=== PATIENT | male | born 1980 | race Caucasian/White ===

== ENCOUNTER 2023-10-18 22:04 | Inpatient (IN) | payer OTHER, SELFPAY ==
[2023-10-18 18:23] VITALS: BMI 30.2
[2023-10-18 18:24] VITALS: BP 188/119
[2023-10-18 19:04] LABS: Urine Albumin Negative (Neg - Trace); Urine Bilirubin 2+ (Negative); Urine Character Clear (Clear); Urine Color Yellow; Urine Glucose Negative (Negative); Urine Ketone Negative (Negative); Urine Leukocyte Negative (Negative); Urine Nitrite Negative (Negative); Urine Occult Blood Negative (Negative); Urine Urobilinogen 4+ (Neg - 1+)
[2023-10-18 19:05] LABS: % Basophils 0.9 % (0-2); % Eosinophils 0.4 % (0-6); % Immature Granulocytes 0.4 % (0-0.5); % Lymphocytes 15.5 % (20.5-51.1); % Monocytes 8.5 % (1.7-9.3); % Neutrophils 74.3 % (42.2-75.2); Absolute Basophils 0.1 10^3/uL (0-0.2); Absolute Lymphocytes 0.9 10^3/uL (1.2-3.4); Absolute Monocytes 0.5 10^3/uL (0.1-0.6); Absolute Neutrophils 4.2 10^3/uL (1.4-6.5); Hematocrit 39.6 % (39.0-52.0); Hemoglobin 13.6 g/dL (13.0-18.0); Mean Corp Hgb Conc. 34.3 g/dL (33.0-37.0); Mean Corpuscular Hgb 31.9 pg (27.0-31.0); Mean Platelet Volume 10.1 fL (7.4-10.4); Nucleated Red Blood Cells % 0 % (-); Platelet Count 150 10^3/uL (130-400); Red Blood Cell Count 4.26 10^6/uL (4.70-6.10); Red Cell Dist. Width 14.1 % (11.5-14.5); White Blood Cell Count 5.7 10^3/uL (4.8-10.8)
[2023-10-18 19:20] LABS: ALT (SGPT) 61 U/L (0-50); AST (SGOT) 394 U/L (17-59); Albumin 3.6 g/dl (3.5-5.0); Alcohol 255 mg/dl; Alkaline Phosphatase 284 U/L (38-126); Blood Urea Nitrogen 3 mg/dl (9-20); Calcium 8.3 mg/dl (8.4-10.2); Carbon Dioxide 25 mmol/L (22-30); Chloride 92 mmol/L (98-107); Glucose 208 mg/dl (70-99); Lipase 92 U/L (23-300); Potassium 3.2 mmol/L (3.5-5.1); Sodium 132 mmol/L (135-145); Total Bilirubin 4.9 mg/dl (0.2-1.3); Total Protein 6.9 g/dl (6.3-8.2); eGFR > 60.00
--- NOTE | 2023-10-18 19:36 | ED.GENMED ---
History of Present Illness
General
Chief Complaint: Alcohol Problem
Source: patient
Exam Limitations: none
Time Seen by Provider: 10/18/23 19:22
Travel History
Have you had any contact with someone who has COVID-19?: No
Do you have any symptoms of coronavirus? Fever > 100 degrees, chills, cough, shortness of breath, sore throat, loss of taste or smell, muscle aches, or headache?: No
History of Present Illness
History of Present Illness:
This is a 43 year old male that comes in with c/o alcohol abuse. States that he thinks he needs detox and he was worried as his eyes are now yellow. States that he noticed this a couple weeks ago but had something he had to take care of first.
States that he is very fatigued, his urine is very dark and fowl smelling. States that his last drink was about 1 hour ago. States that he drinks Moose-four and this is about 4.5 drink per can. States that this is most likely equal to 20 drinks per
day. States that he has been vomiting 3-4 times daily and having palpitations. Denies any fever, chills, chest pain, abd pain, nausea, diarrhea, headache, dizziness, urinary burning.
Past History
Past History
ED Past Medical History: HTN, Psychiatric (Anxiety/depression, substance abuse, alcohol abuse), Other (Drug and alcohol dependence) and Other (Alcoholic pancreatitis)
ED Past Surgical History: Other (Tracheotomy)
Social History
Tobacco: Former smoker
Alcohol: Daily
Drug: Former user (On Suboxone)
Personal:
Living: with family
Review of Systems
Review of Systems
All Other Systems: ROS reviewed and negative except as documented in HPI and ROS
Constitutional: Reports no symptoms; Denies fever or chills
EENT: Reports other (Scalar yellow)
Respiratory: Reports trouble breathing
Cardiac: Reports no symptoms; Denies chest pain
ABD/GI: Reports vomiting; Denies abdominal pain, nausea or diarrhea
: Reports dark urine and other (Fowl smelling )
Musculoskeletal: Reports no symptoms
Skin: Reports no symptoms
Neurological: Reports no symptoms; Denies dizzy or headache
Psychiatric: Reports no symptoms
Phy Exam
General Physical Exam
General Presentation: no apparent distress
General age: appears stated age
General Skin: warm and dry
General Habitus: normal
General Mental: alert
General Hydration: appears well hydrated
ENT Exam
ENT Exam: TM's normal, pharynx normal and neck supple
Eye Exam
Eye Exam: other (Scalar jaundice)
Cardiovascular Exam
Cardiovascular Exam: no edema, no murmur, normal peripheral pulses and tachycardia
Pulmonary Exam
Pulmonary Exam: lungs clear, no respiratory distress, no rales, chest non tender, no crackles, no rhonchi, no wheezing and no cough
Gastrointestinal Exam
Gastrointestinal Exam: normal bowel sounds, non tender, soft, no organomegaly, no pulsatile mass and ascites
Musculoskeletal Exam
Musculoskeletal Exam: full ROM and no edema
Skin Exam
Skin Exam: normal color, warm/dry, no rash and no petechia
Psychiatric Exam
Psychiatric Exam: normal mood/affect
Scores
Withdrawal Assessment of Alcohol
Withdrawal Assessment Completed?: Not applicable
Course
Orders/Labs/Results
Orders:
Orders
10/18/23 18:30
EKG [Electrocardiogram (*1)] Urgent
Reason for Study: Fatigue / Weakness
EKG- Treatment ONCE
10/18/23 18:43
Alcohol Urgent
CBC/With Diff [Complete Blood Count/With Diff] Urgent
CMP [Comprehensive Metabolic Panel] Urgent
Direct Bilirubin Urgent
Comment: ADD ON
Lipase Urgent
Magnesium Urgent
10/18/23 18:46
Urinalysis Reflex To Culture Urgent
Date Specimen was Collected: 10/18/23
Time Specimen was Collected: 18:30
10/18/23 19:34
US Abdomen Limited Urgent
Comment:
Reason For Exam: DISTENTED, ASCITIES CHECK
10/18/23 19:35
Add On- LAB Urgent
Tests Added?: dIRECT CHARANJIT
CR Chest - 2 Views Urgent
Comment:
Reason For Exam: sob
10/18/23 20:00
0.9% Sodium Chloride 500 ml [Nss] 500 ml IV 125 mls/hr
10/18/23 21:39
Admit/Transfer Patient As Directed
Co-Sign Provider:
Level of Care: Inpatient admission
Assign to:: Medical/Surgical
Physician / Group: Gavino Higginbotham - Hospitalists
Diagnosis: acute ETOH hepatitis, jaundice
Reason for Hospitalization: acute ETOH hepatitis, jaundice - serial labs, IVF
Expected length of stay greater than two midnights?: Yes
ELOS- Estimated Length of Stay in days: 3
I certify the patient meets the requirements for IP care: Yes
10/18/23 21:40
Code Status As Directed
Resuscitation Status: Full Code
10/18/23 21:47
Add On- LAB Routine
Tests Added?: mag level
Calcium Gluconate 3,000 mg 0.9% Sodium Chloride 100 ml [Nss] 100 ml IV ONCE
Potassium Chloride [KCl] 40 meq 0.9% Sodium Chloride 250 ml [Nss] 250 ml IV NOW
Abnormal Lab Results
10/18/23 10/18/23
18:43 18:46
RBC 4.26 L 10^6/uL
(4.70-6.10)
MCH 31.9 H pg
(27.0-31.0)
Absolute Lymphs (auto) 0.9 L 10^3/uL
(1.2-3.4)
Lymphocytes % 15.5 L %
(20.5-51.1)
Sodium 132 L mmol/L
(135-145)
Potassium 3.2 L mmol/L
(3.5-5.1)
Chloride 92 L mmol/L
(98-107)
BUN 3 L mg/dl
(9-20)
Creatinine 0.5 L mg/dL
(0.7-1.3)
Glucose 208 H mg/dl
(70-99)
Calcium 8.3 L mg/dl
(8.4-10.2)
Total Bilirubin 4.9 H mg/dl
(0.2-1.3)
Direct Bilirubin 3.5 H mg/dl
(0.0-0.4)
AST 394 H U/L
(17-59)
ALT 61 H U/L
(0-50)
Alkaline Phosphatase 284 H U/L
(38-126)
Urine Bilirubin 2+ A
(Negative)
Urine Urobilinogen 4+ A
(Neg - 1+)
10/18/23 18:43
10/18/23 18:43
Sodium slightly low,Potassium slightly low. Chloride low, Glucose nonfasting. Total charanjit elevation. AST elevation ALT elevation. Alk phos elevation. Urine negative for infection. Positive for Urine bilirubin and Urobilinogen. Alcohol 255, Lipase
normal at 92, Direct charanjit elevated at 3.5,
Vital Signs
Initial and Last Documented VS:
Initial Vital Signs
Temp Pulse Resp BP Pulse Ox
98.1 F 118 18 188/119 98
10/18/23 18:24 10/18/23 18:24 10/18/23 18:24 10/18/23 18:24 10/18/23 18:24
Last Documented Vital Signs
Temp Pulse Resp BP Pulse Ox
98.1 F 89 11 143/93 95
10/18/23 18:24 10/18/23 22:15 10/18/23 22:15 10/18/23 22:00 10/18/23 22:15
MDM/Problems Addressed
Differential Diagnosis Includes:
Alcohol abuse. Liver failure, Ascites
MDM/Problems Addressed:
This is a 43 year old male that comes in with c/o alcohol abuse. States that in the past couple of weeks his eyes were yellow, he has had palpitations feels SOB. States that he also vomited 3-4 times daily. States that he wants to detox.
Will get labs, and Ultrasound. Will most likely admit patient.
Chronic conditions affecting care: Other (Alcohl abuse)
Acute Exacerbation and/or Progression of Chronic Illness: Other (Alcohol abuse)
*Radiology
Radiology exam reviewed: radiology read reviewed (CHEST-NO acute cardiopulmonary process. US- No findings to confirm abd ascites. )
*Pulse Oximetry
Patient hypoxic: no
*EKG
Interpreted by ED Provider?: Yes
Heart Rate: 101
Rate: tachycardiac
Rhythm: sinus and sinus tachycardia
[place]: normal axis
Interval: normal interval
QRS Pattern: normal QRS
Ischemia: no ischemia
*Front Desk Administrator Interpretation
Rate: tachycardiac
Heart Rate: 111
Rhythm: sinus tachycardia
*Critical Care Note
Total Time (30-74mins, 75-104mins- exclusive of procedures): Not Applicable
ED Attending Note
-
Portions of this chart may have been created with voice recognition software.� Occasional wrong word or��sound alike� substitutions may have occurred due to the inherent limitations of voice recognition software.
Discharge Plan
Departure
Patient Disposition: Admit
Date of Disposition: 10/18/23
Time of Disposition: 21:12
Presentation/result/management discussed w/ accepting MD/DO: Hospitalist
Patient with high blood pressure during this ER visit?: Yes
Condition: Good
Covid-19: Not Applicable
Discharge Problem:
Alcohol abuse, Elevated liver enzymes
Interventions
Interventions:
*Risk Screen - Suicide Last Done: 10/18/23 19:43
*General Assessment Last Done: 10/18/23 18:24
*Neglect/Abuse Screening Last Done: 10/18/23 19:43
ED- Fall Risk Assessment Last Done: 10/18/23 19:43
ED- Neurological Assessment Last Done: 10/18/23 19:43
ED-Psychological Assessment Last Done: 10/18/23 19:43
[2023-10-18] MEDS: NSS 500 IV (19:39)
[2023-10-18 19:51] LABS: Direct Bilirubin 3.5 mg/dl (0.0-0.4)
[2023-10-18 21:06] VITALS: BP 127/98
--- NOTE | 2023-10-18 21:27 | HPS.HSE ---
Family Physician
-
Family Physician: NOT KNOW UNKNOWN - PT DOES
Chief Complaint
-
'I want to detox'
History of Present Illness
43 y/o M, hx of opiate abuse on Suboxone, HTN, presents to ER with desire to detox from Alcohol. Patient reports fatigue for about 3 weeks. He reports symptoms are progressive and just 2 weeks ago he noticed yellow discoloration of his eyes. He
reports on and off abdominal distention, discomfort, and nausea vomiting. No bloody vomiting. No LE swelling. No fever or chills. He is interested in detox-ing from ETOH. Reports drinking 3-4 bottles a day due to depression associated with financial
stress. He states he is feeling hopeless, and sad, but denies SI/HI.
In ER, found to have elevated LFTs including bilirubin, admitted for further care.
Medical History
Past Medical History
Past Medical History: Reports Other (anxiety/depression, hx of opiate abuse)
Past Surgical History: Reports Other (trach 2020 reversed)
Social History
Tobacco: Non-smoker
Alcohol: Daily
Drug: Former User (opiates quit 3 years ago)
Personal:
Living: With Family
Employment: Employed
Family History
Family History: Not pertinent
Allergies / Home Medications
Allergies reflects when Allergies were last updated in [facility].
Home Medications with original date entered in [facility]
Allergy/Medication List:
Allergies
Allergy/AdvReac Type Severity Reaction Status Date / Time
No Known Allergies Allergy Verified 10/18/23 18:29
Home Medications
buprenorphine 8 mg-naloxone 2 mg sublingual film 1 film sublingual DAILY 11/28/22
lisinopril 5 mg tablet 5 mg PO DAILY #30 tabs 11/30/22
Review of Systems
-
A 12 point ROS was completed and negative except as noted: Yes
Physical Exam
Vital Signs
Vital Signs
Temp Pulse Resp BP Pulse Ox
98.1 F 87 11 127/98 93
10/18/23 18:24 10/18/23 21:15 10/18/23 21:15 10/18/23 21:06 10/18/23 21:15
Physical Exam
General: Well Developed, Well Nourished and No Apparent Distress
HEENT: NormoCephalic and Other (scleral icterus)
Respiratory: No Wheezes or Rales
Cardiac: S1/S2 and Regular Rhythm
GI: Soft and Distended
Musculoskeletal: No Edema
Skin: Jaundice
Neuro: AO x 3
Psych: Calm
Laboratory Results
-
10/18/23 18:43
10/18/23 18:43
Laboratory Results
Total Bilirubin 4.9 mg/dl (0.2-1.3) H 10/18/23 18:43
AST 394 U/L (17-59) H 10/18/23 18:43
ALT 61 U/L (0-50) H 10/18/23 18:43
Alkaline Phosphatase 284 U/L (38-126) H 10/18/23 18:43
Lipase 92 U/L (23-300) 10/18/23 18:43
Data Reviewed
-
Lab Data: Labs Reviewed by me
Impression/Plan
-
Assessment:
Acute Alcohol hepatitis
- associated with elevated LFTs (AST>>ALT) and elevated bilirubin; will trend labs
- check coags to calculate DF score
- limited US without ascites; complete US ordered for AM
- IVF ordered
Chronic Alcoholism associated with clinical depression
- consult psych
- at risk for WD, monitor with MSAS protocol. No prior hx of seizures or hospitalizations with WD
Hyponatremia
Hypokalemia
Hypocalcemia with normal albumin
- continue IVF
- replete K+ and Ca++ with IV
- repeat AM labs
Prior history of opiate abuse
- sober x 3 years; on Suboxone daily
Essential HTN
- continue ANN
DVT ppx: Lovenox
Code: Full
[2023-10-18 22:00] VITALS: BP 143/93
[2023-10-18] MEDS: KCL 270 MEQ IV (22:03)
[2023-10-18 22:20] LABS: Magnesium 2.1 mg/dl (1.6-2.3)
[2023-10-18] MEDS: CALCIUM GLUCONATE 130 MG IV (22:47)
[2023-10-18 23:00] VITALS: BP 128/99
[2023-10-19] VITALS (17 sets, daily range): BP systolic 144–197; BP diastolic 108–130
[2023-10-19] MEDS: ATIVAN 1 MG PO ×6 (01:36→20:14)
[2023-10-19] MEDS: THIAMINE INJECTION 200 MG IV ×3 (01:36→20:14)
[2023-10-19] MEDS: NSS 1000 IV (02:08)
[2023-10-19] MEDS: NSS IV (02:35)
[2023-10-19 03:05] LABS: Amphetamines Negative (Negative); Barbiturates Negative (Negative); Benzodiazepines Negative (Negative); Buprenorphine Positive (Negative); Cocaine Negative (Negative); Marijuana Negative (Negative); Methadone Negative (Negative); Methamphetamines Negative (Negative); Opiates Negative (Negative); Phencyclidine Negative (Negative); Tricyclic Antidepressants Negative (Negative)
[2023-10-19 03:27] LABS: Fentanyl, Urine Negative (Negative)
[2023-10-19 06:47] LABS: INR 1.43; PT 17.3 Sec (11.4-14.6)
[2023-10-19 06:48] LABS: APTT 35.3 Sec (23.4-35.0)
[2023-10-19 07:03] LABS: Hematocrit 38.8 % (39.0-52.0); Mean Corp Hgb Conc. 33.5 g/dL (33.0-37.0); Mean Corpuscular Hgb 31.6 pg (27.0-31.0); Mean Corpuscular Volume 94.2 fL (80.0-94.0); Mean Platelet Volume 9.8 fL (7.4-10.4); Platelet Count 143 10^3/uL (130-400); Red Blood Cell Count 4.12 10^6/uL (4.70-6.10); Red Cell Dist. Width 14.3 % (11.5-14.5); White Blood Cell Count 4.5 10^3/uL (4.8-10.8)
[2023-10-19 07:05] LABS: ALT (SGPT) 64 U/L (0-50); AST (SGOT) 359 U/L (17-59); Albumin 3.3 g/dl (3.5-5.0); Alkaline Phosphatase 288 U/L (38-126); Blood Urea Nitrogen 3 mg/dl (9-20); Calcium 8.6 mg/dl (8.4-10.2); Carbon Dioxide 30 mmol/L (22-30); Chloride 99 mmol/L (98-107); Estimated Creatinine Clearance > 125 ml/min; Glucose 89 mg/dl (70-99); Magnesium 1.8 mg/dl (1.6-2.3); Phosphorus 2.8 mg/dl (2.5-4.5); Potassium 4.4 mmol/L (3.5-5.1); Sodium 136 mmol/L (135-145); Total Bilirubin 5.9 mg/dl (0.2-1.3); Total Protein 6.6 g/dl (6.3-8.2); eGFR > 60.00
[2023-10-19] MEDS: ZESTRIL 5 MG PO (07:58)
[2023-10-19] MEDS: FOLVITE 1 MG PO (07:58)
[2023-10-19] MEDS: TRANDATE 10 MG IV ×2 (07:59→23:17)
[2023-10-19] MEDS: SUBUTEX 8 MG SL ×2 (07:59→20:14)
--- NOTE | 2023-10-19 08:50 | EDRN ---
Assumed care. Pt is AAOx4. Color - sl jaundiced. HR- tachycardic - sinus noted on monitor. Lungs clear. Abd round, sl distended. No n/v. HAN. tremors noted. Pt informed that he is now NPO status except sips/ meds. Amb in room BRP - steady gait.
Hospitalist updated frequently re- BP readings and meds administered as ordered. IV infusing LT ACF as ordered
--- NOTE | 2023-10-19 08:58 | CON.GI ---
Addendum entered and electronically signed by Nakia Villarreal MD 10/19/23 12:45:
I saw and examined the patient.
The FAMILY PRESERVATION OFFICER's note was reviewed and I agree with the note.
Comment: This is a 43-year-old male with past medical history of alcoholism with a history of recurrent alcohol pancreatitis with also 1 episode of severe pancreatitis few years ago with VDRF status post trach and PEG at that time that was
subsequently removed. History of opiate abuse currently on Suboxone who presented to the emergency room with symptoms of profound fatigue for about 2 to 4 weeks and also jaundice that he initially noticed about 2 weeks prior to admission.
Admission LFTs elevated, normal platelet, INR mildly elevated at 1.43. He has been drinking 4-5 [place] drinks daily for quite a few years
Assessment and plan alcohol hepatitis DF is 25.7 no indication for steroids, continue alcohol withdrawal prophylaxis, thiamine and folic acid also. Patient willing to go to rehab inpatient or outpatient unfortunately he has been to a couple rehabs
in the past but has relapsed. ultrasound was negative for ascites, no HE
2. History of recurrent pancreatitis with also prior history of severe alcohol pancreatitis, his last admission here was in November 2022 for pancreatitis that episode did resolve quickly
3. History of opiate substance abuse currently on Suboxone
Original Note:
Consultation
-
Date/Time Consultation Requested: 10/19/2023
Date/Time Consultation Performed: 10/19/2023 @ 08:45
Requesting Provider: Dr. Galeano
Performing Provider: BRAVO Boudreaux; Dr. Villarreal
Reason for Consultation: alcoholic hepatitis
Medical History
Chief Complaint / HPI
Chief Complaint: 'i want to detox,' jaundice, weakness
History of Present Illness:
The patient is a 43-year-old male with a past medical history significant for recurrent alcoholic pancreatitis, history of vent dependent respiratory failure with tracheostomy and reversal, history of substance abuse on Subutex, hypertension with
medication noncompliance, alcohol abuse, who presented to the emergency room for evaluation of jaundice and weakness and help for detox. We are being asked to evaluate for alcoholic hepatitis. Patient reports multiple episodes of alcoholic
pancreatitis in the past. He notes the first episode he had severe pancreatitis where he was placed on a ventilator and underwent tracheostomy placement. This ultimately was reversed. He is unsure if he ever had any surgery on his pancreas or
endoscopic evaluations with EUS. His last hospitalization for pancreatitis was last year here [facility]. He notes ongoing jaundice and fatigue for the past 2 weeks. He notes that he has been unable to work due to his ongoing symptoms.
He drinks 4-5 4 [place] drinks daily and has been drinking excessively for many years. He notes many life stressors currently leading to his excessive alcohol use. He denies any abdominal pain but admits to abdominal distention and pressure, although
he reports his abdomen appears at baseline. He notes he has had a decreased appetite but denies any significant weight loss. He also admits to nausea and vomiting at home which has since subsided. He denies any coffee-ground emesis or
hematemesis. He otherwise denies any constipation, melena, hematochezia, heartburn, chest pain, shortness of breath, fevers, or chills. He denies any use of blood thinners or NSAIDs. He does have a history of heroin abuse and has been clean in
regards to this. He is on Subutex daily. He does admit to the need for inpatient rehab for alcohol in the past but denies any history of withdrawal seizures. He does attend AA meetings when he is sober which is helpful. He reports family history
of alcoholism of his father. Denies any family history of colon cancer. His last alcoholic beverage was yesterday around 6 PM. He denies any prior EGD or colonoscopy. Routine labs on admission showed a WBC 5.7, hemoglobin 13.6, platelets
150,000, INR 1.43, PT 17.3, sodium 132, potassium 3.2, BUN 3, creatinine 0.5, magnesium 2.1, total bilirubin 4.9, direct bilirubin 3.5, AST 394, ALT 61, alk phos 284, lipase 92. Ultrasound imaging was done to assess for ascites which was negative.
Chest x-ray showed no acute cardiopulmonary findings. He was made n.p.o., admitted for further evaluation by GI, with pending a complete ultrasound of the abdomen. Psychiatry also was asked to evaluate. He did receive Ativan in the emergency room
and currently is tremulous and tachycardic.
Past Medical History
Past Medical History: HTN and Other (recurrent pancreatitis, alcohol abuse, hx substance abuse on Subutex, hx VDRF requiring tracheostomy/PEG with reversal)
Past Surgical History: Other (tracheostomy/PEG with reversal)
Social History
Tobacco: Non-Smoker
Alcohol: Chronic Alcoholic
Drug: Former User and Other (hx heroin abuse on Subutex)
Family History
Family History: Reviewed & Not Pertinent
Allergies / Home Medications
Allergy/AdvReac Type Severity Reaction Status Date / Time
No Known Allergies Allergy Verified 10/18/23 18:29
Medication Instructions Recorded
buprenorphine 8 mg-naloxone 2 mg 1 film sublingual DAILY 11/28/22
sublingual film
lisinopril 5 mg tablet 5 mg PO DAILY #30 tabs 11/30/22
Review of Systems
-
History Source: Patient
Constitutional: Reports No Symptoms
EENT: Reports Other (scleral icterus)
Respiratory: Reports No Symptoms
Cardiac: Reports No Symptoms
Abdomen/GI: Reports Nausea, Vomiting and Other (abdominal distention)
: Reports Dark Urine
Musculoskeletal: Reports No Symptoms
Skin: Reports Other (jaundice)
Neurological: Reports Weakness
Vital Signs
Temp Pulse Resp BP Pulse Ox
98.8 F 127 21 184/120 96
10/19/23 07:00 10/19/23 08:45 10/19/23 08:45 10/19/23 08:30 10/19/23 07:14
Physical Exam
Exam
General: Well Developed, Well Nourished, No Apparent Distress and Comfortable
HEENT: Normocephalic, Atraumatic and Other (Bilateral scleral icterus; old tracheostomy site scar)
Respiratory: Clear
Cardiac: S1/S2 and Regular Rhythm (Sinus tachycardia on telemetry monitoring)
GI: Non Tender, Normal Bowel Sounds and Distended
Rectal: Deferred by Provider
Musculoskeletal: No Edema
Skin: Warm and Dry
Neuro: Awake, Alert and Oriented
Psych: Calm and Other (Tremulous in upper extremities)
Results
WBC 4.5 10^3/uL (4.8-10.8) L 10/19/23 06:10
Hgb 13.0 g/dL (13.0-18.0) 10/19/23 06:10
Hct 38.8 % (39.0-52.0) L 10/19/23 06:10
MCV 94.2 fL (80.0-94.0) H 10/19/23 06:10
Plt Count 143 10^3/uL (130-400) 10/19/23 06:10
Absolute Neuts (auto) 4.2 10^3/uL (1.4-6.5) 10/18/23 18:43
PT 17.3 Sec (11.4-14.6) H 10/19/23 06:10
INR 1.43 10/19/23 06:10
APTT 35.3 Sec (23.4-35.0) H 10/19/23 06:10
Sodium 136 mmol/L (135-145) 10/19/23 06:10
Potassium 4.4 mmol/L (3.5-5.1) D 10/19/23 06:10
Chloride 99 mmol/L (98-107) 10/19/23 06:10
Carbon Dioxide 30 mmol/L (22-30) 10/19/23 06:10
BUN 3 mg/dl (9-20) L 10/19/23 06:10
Creatinine 0.5 mg/dL (0.7-1.3) L 10/19/23 06:10
Calcium 8.6 mg/dl (8.4-10.2) 10/19/23 06:10
Total Bilirubin 5.9 mg/dl (0.2-1.3) H 10/19/23 06:10
AST 359 U/L (17-59) H 10/19/23 06:10
ALT 64 U/L (0-50) H 10/19/23 06:10
Alkaline Phosphatase 288 U/L (38-126) H 10/19/23 06:10
Lipase 92 U/L (23-300) 10/18/23 18:43
Diagnostic Image Results:
10/18/2023 US abdomen, limited: IMPRESSION: No findings to confirm abdominal ascites.
10/18/2023 CXR: IMPRESSION: No acute cardiopulmonary process.
Prior GI Procedures:
EGD: none
Colonoscopy: none
Assessment / Plan
-
The patient is a 43-year-old male with a past medical history significant for recurrent alcoholic pancreatitis, history of vent dependent respiratory failure with tracheostomy and reversal, history of substance abuse on Subutex, hypertension with
medication noncompliance, alcohol abuse, who presented to the emergency room for evaluation of jaundice and weakness and help for detox. We are being asked to evaluate for alcoholic hepatitis. Patient notes history of recurrent pancreatitis
secondary to chronic alcoholism, with last episode last year here [facility]. He has been drinking alcohol for many years currently 4-5 [place] drinks daily. With progressive jaundice and weakness over the past 2 weeks found to have
alcoholic hepatitis based on labs. Discriminant function 25.7. Total bilirubin 4.9, direct bilirubin 3.5, AST 394, ALT 61, alk phos 284. Limited ultrasound did not demonstrate any significant ascites. Lipase level was normal. Mild hyponatremia
and hypokalemia on admission which has been corrected. Slight up-trend in liver enzymes since yesterday.
Problem list:
-alcoholic hepatitis
-abnormal LFT's
-hypokalemia
-hyponatremia
-hx recurrent alcoholic pancreatitis
-ETOH abuse
-hx VDRF requiring tracheostomy/PEG with reversal
-hx substance abuse on Subutex
-HTN, noncompliant with medications
Recommendations:
-Etiology of presenting symptoms secondary to alcoholic hepatitis with ongoing alcohol abuse. Currently with no evidence of pancreatitis with normal lipase and no significant pain.
-Calculated discriminant function is 25.7, therefore we will hold off on steroids at this time
-His INR is mildly elevated we will trend
-Monitor LFTs
-Follow ultrasound of the abdomen, which is pending. Limited ultrasound did not demonstrate any significant ascites.
-I did review with the patient that strict alcohol abstinence going forward is necessary to prevent mortality. He does wish to quit and is wishing for help with detox.
-Psychiatry consult noted
-Eventual care management consult for assistance with rehab
-Alcohol withdrawal protocol. He was slightly tremulous and tachycardic upon evaluation but did not reportedly just received Ativan.
-Will follow
Data Reviewed
-
Old Records: Reviewed
-
-
Thank you for consultation and allowing me to participate in the patient's care. Please call the health information technician GI physician during the after hours with any questions or concerns.
--- NOTE | 2023-10-19 10:26 | CM ---
Met with patient who comes in from home. He is being admitted with elevated bilirubin, AST, ALT. He states he wants to stop his ETOH use. He agreed to have [facility] come to talk to him.
He lives with and 3 children ages 10,6,3 in 2 level home. 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 Full flight to bedroom and full bathroom. He does not use any DME. He works with another nino doing independent tay
He said PCP on insurance card that has on file is wrong. He believes his PCP is Dr. Ancelmo Perez at [address] [place] [address].
He feels he cannot go to inpatient due to his work commitments. Will await [facility] assessment to assist in setting up next level of care.
PLAN:home or inpatient treatment for alcohol use disorder.
--- NOTE | 2023-10-19 11:54 | W.PN.HOSP.TC ---
Today's Communication/Plan
-
Complete US pending
IVF
MSAS
GI recs
Psych recs
bp contorl
Assessment / Plan
Assessment / Plan
Acute Alcohol hepatitis
- associated with elevated LFTs (AST>>ALT) and elevated bilirubin; will trend labs
- limited US without ascites; complete US ordered pending.
- IVF ordered
- GI recs. Bili uptrended.
Chronic Alcoholism associated with clinical depression
- consult psych
- at risk for WD, monitor with MSAS protocol. No prior hx of seizures or hospitalizations with WD
- May need phenobarbital. However with uptrend in LFTs need to be careful.
Hyponatremia
Hypokalemia
Hypocalcemia with normal albumin
- continue IVF
- K stabilized.
- repeat AM labs
Prior history of opiate abuse
- sober x 3 years; on Suboxone daily
Essential HTN
- continue ANN
-elevated could be due to etoh withdrawal
DVT ppx: Lovenox
Code: Full
Anticipated Discharge: > 48 hours
Subjective/Interval History
-
Date of Service: October 19, 2023
States of shakes/tremors
Denies nausea or vomiting abdominal pain/distention
Objective Data
-
Labs:
Laboratory Results
10/19/23
06:10
WBC 4.5 L
Hgb 13.0
Hct 38.8 L
Plt Count 143
PT 17.3 H
INR 1.43
APTT 35.3 H
Sodium 136
Potassium 4.4 D
Chloride 99
Carbon Dioxide 30
BUN 3 L
Creatinine 0.5 L
Glucose 89
Calcium 8.6
Total Bilirubin 5.9 H
AST 359 H
ALT 64 H
Alkaline Phosphatase 288 H
Vital Signs:
Vital Signs
Temp Pulse Resp BP Pulse Ox
98.8 F 103 12 160/110 96
10/19/23 07:00 10/19/23 11:15 10/19/23 11:15 10/19/23 10:36 10/19/23 07:14
Physical Exam
-
General: Well Developed and No Apparent Distress
HEENT: Normocephalic, Atraumatic and Moist Mucous Membranes
Respiratory: Clear to Auscultation
Cardiac: Regular Rhythm and S1/S2; Negative Murmur, Rub or Gallop
GI: Soft, Nontender, Nondistended and Normal Bowel Sounds; Negative Organomegaly
Rectal: Deferred by Provider
Musculoskeletal: No Clubbing, No Cyanosis and No Edema
Skin: Warm and Jaundice; Negative Rash
Neuro: Awake, Alert, Oriented, AO x 3, Tremors and Nonfocal/Grossly Intact
Psych: Calm
Data Reviewed
-
Total Time Spent with Patient (in minutes): 56
--- NOTE | 2023-10-19 14:29 | W.PN.UPDATE ---
Update Note
Progress Note Update
patient seen chart reviewed. patient is a 43 year old male w long hx of etoh abuse but w significant periods of sobriety eg 4.5 year when he attended aa had a sponsor etc. he reports significant $ stress...has three kids and a who is a stay
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 recognizing the negative impact of etoh on his health....eyes turning yellow abd pain n,v and brought self to for help w detox. he has been admitted, placed on msas and is awaiting a bed.
he admits he is depressed at times. he has had si but never any plan or intent. he is not suicidal now. energy not great sleep and appetite poor. he was drinking four to five 4 locos daily which he says is about 19 or 20 drinks. he denies any hx
dt's or sz in wd.
past psych hx never rx for depression w meds. was in [facility] twice and one other rehab experience at [facility]
medical labs c/w alcoholic hepatitis, pancreatitis. hx htn patient w hx opiate dependence in the past not currently noted low sodium low K on admit macrocytosis nl qtc bp 157/118 hr 114
fh alcoholism
substance abuse etoh as above
social hx works as a contractor. tension w over $ three kids 10 6 3 all girls has a small solomon of friends. good childhood parents good to him
mse alert ox3 cooperative speech and thought process ok mood is neutral affect appropriate no si no psychosis aver intell insight judgment lacking
dx etoh use disorder etoh wd r/o underlying depression
plan msas assess re need for antidep recommend in pt rehab but patient says he cannot as he is only breadwinner in family. he is willing to do out patient rehab and get to AA and get a sponsor.
[2023-10-19] MEDS: LOVENOX 40 MG SC (16:59)
[2023-10-20] VITALS (7 sets, daily range): BP systolic 128–175; BP diastolic 88–122; BMI 30.5
[2023-10-20] MEDS: ATIVAN 1 MG PO ×4 (01:14→21:21)
--- NOTE | 2023-10-20 01:27 | PTCARENOTE ---
Patient received in bed from ED at 0115. AAOx3. Pt ambulated from wheelchair to bed. MSAS completed upon arrival to floor, PRN Ativan given per MAR. Patient oriented to room and call funes.
[2023-10-20] MEDS: TRANDATE 10 MG IV ×2 (05:50→12:18)
[2023-10-20 07:58] LABS: % Basophils 0.5 % (0-2); % Eosinophils 1.4 % (0-6); % Immature Granulocytes 0.3 % (0-0.5); % Lymphocytes 19.8 % (20.5-51.1); % Monocytes 8.2 % (1.7-9.3); % Neutrophils 69.8 % (42.2-75.2); Absolute Eosinophils 0.1 10^3/uL (0-0.7); Absolute Lymphocytes 1.1 10^3/uL (1.2-3.4); Absolute Monocytes 0.5 10^3/uL (0.1-0.6); Hematocrit 40.1 % (39.0-52.0); Hemoglobin 13.7 g/dL (13.0-18.0); Mean Corp Hgb Conc. 34.2 g/dL (33.0-37.0); Mean Corpuscular Hgb 31.9 pg (27.0-31.0); Mean Corpuscular Volume 93.3 fL (80.0-94.0); Mean Platelet Volume 10.5 fL (7.4-10.4); Nucleated Red Blood Cells % 0 % (-); Platelet Count 147 10^3/uL (130-400); Red Cell Dist. Width 14.4 % (11.5-14.5); White Blood Cell Count 5.8 10^3/uL (4.8-10.8)
[2023-10-20 08:09] LABS: INR 1.39; PT 17.1 Sec (11.4-14.6)
[2023-10-20] MEDS: SUBUTEX 8 MG SL ×2 (08:15→20:12)
[2023-10-20] MEDS: FOLVITE 1 MG PO (08:15)
[2023-10-20] MEDS: ZESTRIL 5 MG PO (08:15)
[2023-10-20] MEDS: THIAMINE INJECTION 200 MG IV ×2 (08:16→20:12)
--- NOTE | 2023-10-20 08:23 | W.PN.GI.CBS2 ---
Addendum entered and electronically signed by BRAVO Chaparro 10/20/23 10:34:
DF 28.7 with control on 13 continue to hold steroids
Original Note:
Today's Communication / Plan
-
trend LFTS,
platelets and INR stable
ETOH abstinence
Assessment / Plan
-
The patient is a 43-year-old male with a past medical history significant for recurrent alcoholic pancreatitis, history of vent dependent respiratory failure with tracheostomy and reversal, history of substance abuse on Subutex, hypertension with
medication noncompliance, alcohol abuse, who presented to the emergency room for evaluation of jaundice and weakness and help for detox. We are being asked to evaluate for alcoholic hepatitis. Patient notes history of recurrent pancreatitis
secondary to chronic alcoholism, with last episode last year here [facility]. He has been drinking alcohol for many years currently 4-5 [employer] [place] drinks daily. With progressive jaundice and weakness over the past 2 weeks found to have
alcoholic hepatitis based on labs. Discriminant function 25.7. Total bilirubin 4.9, direct bilirubin 3.5, AST 394, ALT 61, alk phos 284. Limited ultrasound did not demonstrate any significant ascites. Lipase level was normal. Mild hyponatremia
and hypokalemia on admission which has been corrected. Slight up-trend in liver enzymes since yesterday.
Problem list:
-alcoholic hepatitis
-abnormal LFT's
-hypokalemia
-hyponatremia
-hx recurrent alcoholic pancreatitis
-ETOH abuse
-hx VDRF requiring tracheostomy/PEG with reversal
-hx substance abuse on Subutex
-HTN, noncompliant with medications
Recommendations:
-Etiology of presenting symptoms secondary to alcoholic hepatitis with ongoing alcohol abuse. Currently with no evidence of pancreatitis with normal lipase and no significant pain.
-Calculated discriminant function is 25.7, therefore we will hold off on steroids at this time, no HE, no ascites currently
-His INR is mildly elevated trending down
-Monitor LFTs
-Ultrasound shows fatty liver with probable mild splenomegaly, no obvious mass noted, no ascites
-I did review with the patient that strict alcohol abstinence going forward is necessary to prevent mortality. He does wish to quit but unfortunately he says he cannot go to inpatient rehab because of work but motivated to attend outpatient rehab
and AA
-Psychiatry consult noted
-Alcohol withdrawal protocol.
-continue thaimine and folic acid
-FIBROSCAN as OP to r/o cirrhosis
-f/u as OP, will s/o and will be available as needed
Subjective
Subjective
Date of Service: October 20, 2023
Less tremulous today, no nausea or vomiting, no abdominal pain, feeling better overall
Objective
Data Reviewed
Laboratory Data:
Laboratory Results
10/20/23 07:29
Laboratory Results
PT 17.1 Sec (11.4-14.6) H 10/20/23 07:29
INR 1.39 10/20/23 07:29
APTT 35.3 Sec (23.4-35.0) H 10/19/23 06:10
Phosphorus 2.8 mg/dl (2.5-4.5) 10/19/23 06:10
Magnesium 1.8 mg/dl (1.6-2.3) 10/19/23 06:10
Total Bilirubin 5.9 mg/dl (0.2-1.3) H 10/19/23 06:10
AST 359 U/L (17-59) H 10/19/23 06:10
ALT 64 U/L (0-50) H 10/19/23 06:10
Alkaline Phosphatase 288 U/L (38-126) H 10/19/23 06:10
Lipase 92 U/L (23-300) 10/18/23 18:43
Vital Signs and I&O:
Vital Signs
Temp Pulse Resp BP Pulse Ox
99.1 F 101 16 170/119 96
10/20/23 03:49 10/20/23 05:50 10/20/23 03:49 10/20/23 05:50 10/20/23 03:49
I&O
10/19/23 10/20/23 10/21/23
06:59 06:59 06:59
Intake Total 1000 / 1000
Output Total 250 / 250
750 / 750
10/19/23 US IMPRESSION:
1.� Increased echogenicity in the liver, compatible with underlying hepatocellular disease, which most commonly relates to fatty infiltration of the liver. This limits detection for any focal hepatic mass. Grossly, no hepatic mass is seen.
2. Borderline splenomegaly.
Physical Exam
Physical Exam
Cardiology: Normal Sinus Rhythm (tachycardic)
Pulmonary: Clear
GI: Soft, Non Distended, Non Tender and Normal Bowel Sounds
[2023-10-20 08:35] LABS: ALT (SGPT) 60 U/L (0-50); AST (SGOT) 373 U/L (17-59); Albumin 3.6 g/dl (3.5-5.0); Alkaline Phosphatase 295 U/L (38-126); Blood Urea Nitrogen 6 mg/dl (9-20); Calcium 8.8 mg/dl (8.4-10.2); Carbon Dioxide 25 mmol/L (22-30); Chloride 98 mmol/L (98-107); Estimated Creatinine Clearance > 125 ml/min; Glucose 84 mg/dl (70-99); Potassium 3.8 mmol/L (3.5-5.1); Sodium 133 mmol/L (135-145); Total Bilirubin 9.8 mg/dl (0.2-1.3); Total Protein 7.1 g/dl (6.3-8.2); eGFR > 60.00
--- NOTE | 2023-10-20 10:51 | W.PN.UPDATE ---
Addendum entered and electronically signed by Rosanna Lema MD 10/20/23 10:58:
given lft's will hold off on phenobarb. discussed w dr lowery
Original Note:
Update Note
Progress Note Update
patient seen chart reviewed. discussed w nursing. while patient does not appear at first glance to be in the throes of withdrawal his bp pulse are quite high. he does note signficant tremor when he attempts to do anything eg eat etc. tiger texted
dr lowery to discuss whether to start phenobarbital. patient is not interested in in patient rehab but he is motivated to do out pt /aa/ get a sponsor. we talked about the importance of doing something as it is imperative that he gets sober at this
point. he only has to look at his father to see the ravages of etoh on your life. await dr lowery's reply. will follow
--- NOTE | 2023-10-20 11:40 | W.PN.UPDATE ---
Update Note
Progress Note Update
His labs are back his bilirubin went up from 5.9-9.8 his DF is still less than 32 calculated DF today is 28.7 still no indication for steroids at this time. Continue to manage his alcohol withdrawal per primary team. Follow-up as outpatient and
repeat LFTs in 1 week after DC
--- NOTE | 2023-10-20 11:57 | W.PN.HOSP.TC ---
Today's Communication/Plan
-
ativan
monitor bp
trend lfts
Assessment / Plan
Assessment / Plan
Acute Alcohol hepatitis
- associated with elevated LFTs (AST>>ALT) and elevated bilirubin; will trend labs
- US without ascites
- tolerating diet.
- low DF score and not a candidate for steroids.
- GI recs. Bili uptrended to 9.8. Monitor mentation closely
Chronic Alcoholism associated with clinical depression
-consultED psych
-at risk for WD, monitor with MSAS protocol. No prior hx of seizures or hospitalizations with WD
-Due to heavy alcohol usage and elevated LFTs unable to do phenobarbital. Will start standing Ativan. Discussed with psych
-May need phenobarbital. However with uptrend in LFTs need to be careful.
Hyponatremia
Hypokalemia
Hypocalcemia with normal albumin
- DC IVF
- K stabilized.
- repeat AM labs
Prior history of opiate abuse
- sober x 3 years; on Suboxone
Essential HTN
- continue ANN. If remains persistently high will increase lisinopril to 20 mg daily
- elevated could be due to etoh withdrawal
DVT ppx: Lovenox
Code: Full
Anticipated Discharge: > 48 hours
Subjective/Interval History
-
Date of Service: October 20, 2023
States of shakes and mild tremors
Objective Data
-
Labs:
Laboratory Results
10/20/23
07:29
WBC 5.8
Hgb 13.7
Hct 40.1
Plt Count 147
PT 17.1 H
INR 1.39
Sodium 133 L
Potassium 3.8
Chloride 98
Carbon Dioxide 25
BUN 6 L
Creatinine 0.5 L
Glucose 84
Calcium 8.8
Total Bilirubin 9.8 H D
AST 373 H
ALT 60 H
Alkaline Phosphatase 295 H
Vital Signs:
Vital Signs
Temp Pulse Resp BP Pulse Ox
98.9 F 115 18 152/121 97
10/20/23 07:00 10/20/23 07:00 10/20/23 07:00 10/20/23 07:00 10/20/23 07:00
I&O
10/19/23 10/20/23 10/21/23
06:59 06:59 06:59
Intake Total 1000 / 1000
Output Total 250 / 250
Balance 750 / 750
Physical Exam
-
General: Well Developed and No Apparent Distress
HEENT: Normocephalic, Atraumatic and Moist Mucous Membranes
Respiratory: Clear to Auscultation
Cardiac: Regular Rhythm and S1/S2; Negative Murmur, Rub or Gallop
GI: Soft, Nontender, Nondistended and Normal Bowel Sounds; Negative Organomegaly
Rectal: Deferred by Provider
Musculoskeletal: No Clubbing, No Cyanosis and No Edema
Skin: Warm and Jaundice; Negative Rash
Neuro: Awake, Alert, Oriented, AO x 3, Tremors and Nonfocal/Grossly Intact
Psych: Calm
Data Reviewed
-
Total Time Spent with Patient (in minutes): 55
--- NOTE | 2023-10-20 15:46 | CM ---
patient on prn ativan.seen by psychiatry-patient not interested in going to rehab but is interested in op etoh resources.will await b cares to see patient.
[2023-10-20] MEDS: LOVENOX 40 MG SC (18:01)
[2023-10-20 19:19] LABS: Hepatitis B Surface Antigen Negative (Negative)
[2023-10-20 19:36] LABS: Hepatitis B Core Ab, Total Negative (Negative); Hepatitis B Surface Antibody Negative; Hepatitis C Antibody Negative (Negative)
[2023-10-20 19:37] LABS: Hepatitis A Antibody, Total Negative (Negative)
[2023-10-21 02:31] VITALS: BP 138/95
[2023-10-21 07:00] VITALS: BP 160/116
[2023-10-21 08:00] LABS: % Basophils 0.9 % (0-2); % Eosinophils 1.7 % (0-6); % Immature Granulocytes 0.7 % (0-0.5); % Lymphocytes 19.5 % (20.5-51.1); % Monocytes 10.4 % (1.7-9.3); % Neutrophils 66.8 % (42.2-75.2); Absolute Basophils 0.1 10^3/uL (0-0.2); Absolute Eosinophils 0.1 10^3/uL (0-0.7); Absolute Lymphocytes 1.1 10^3/uL (1.2-3.4); Absolute Monocytes 0.6 10^3/uL (0.1-0.6); Absolute Neutrophils 3.6 10^3/uL (1.4-6.5); Hematocrit 36.3 % (39.0-52.0); Hemoglobin 12.3 g/dL (13.0-18.0); Mean Corp Hgb Conc. 33.9 g/dL (33.0-37.0); Mean Corpuscular Volume 94.5 fL (80.0-94.0); Mean Platelet Volume 10.5 fL (7.4-10.4); Nucleated Red Blood Cells % 0 % (-); Platelet Count 130 10^3/uL (130-400); Red Blood Cell Count 3.84 10^6/uL (4.70-6.10); Red Cell Dist. Width 14.6 % (11.5-14.5); White Blood Cell Count 5.4 10^3/uL (4.8-10.8)
[2023-10-21 08:23] LABS: ALT (SGPT) 50 U/L (0-50); AST (SGOT) 248 U/L (17-59); Albumin 3.1 g/dl (3.5-5.0); Alkaline Phosphatase 222 U/L (38-126); Blood Urea Nitrogen 9 mg/dl (9-20); Calcium 8.7 mg/dl (8.4-10.2); Carbon Dioxide 27 mmol/L (22-30); Chloride 98 mmol/L (98-107); Estimated Creatinine Clearance > 125 ml/min; Glucose 91 mg/dl (70-99); Potassium 3.5 mmol/L (3.5-5.1); Sodium 134 mmol/L (135-145); Total Bilirubin 9.1 mg/dl (0.2-1.3); Total Protein 6.3 g/dl (6.3-8.2); eGFR > 60.00
[2023-10-21] MEDS: THIAMINE INJECTION 200 MG IV (08:57)
[2023-10-21] MEDS: FOLVITE 1 MG PO (08:57)
[2023-10-21] MEDS: ATIVAN 1 MG PO ×3 (08:57→22:14)
[2023-10-21] MEDS: SUBUTEX 8 MG SL ×2 (08:57→20:24)
[2023-10-21] MEDS: ZESTRIL 5 MG PO (08:57)
--- NOTE | 2023-10-21 10:19 | W.PN.HOSP.TC ---
Today's Communication/Plan
-
Adjust blood pressure meds
Trend LFTs
Monitor Ativan requirements
Psych recs
Assessment / Plan
Assessment / Plan
Acute Alcohol hepatitis
- associated with elevated LFTs (AST>>ALT) and elevated bilirubin; will trend labs
- US without ascites
- tolerating diet.
- low DF score and not a candidate for steroids.
- GI recs. Bili slowly downtrending. Monitor mentation closely
Chronic Alcoholism associated with clinical depression
Acute alcohol withdrawal
- monitor with MSAS protocol. No prior hx of seizures or hospitalizations with WD
-Due to heavy alcohol usage and elevated LFTs unable to do phenobarbital. Will start standing Ativan. Discussed with psych
-Cont with current regimen
Hyponatremia
Hypokalemia
Hypocalcemia with normal albumin
- DC IVF
- K stabilized.
- repeat AM labs
Prior history of opiate abuse
- sober x 3 years; on Suboxone
Essential HTN
- Increased lisinopril to 20 mg daily and started lopressor.
- elevated could be due to etoh withdrawal
DVT ppx: Lovenox
Code: Full
Anticipated Discharge: 24 - 48 hours
Subjective/Interval History
-
Date of Service: October 21, 2023
Remains with tremors
Blood pressure elevated
Objective Data
-
Labs:
Laboratory Results
10/21/23
06:55
WBC 5.4
Hgb 12.3 L
Hct 36.3 L
Plt Count 130
Sodium 134 L
Potassium 3.5
Chloride 98
Carbon Dioxide 27
BUN 9
Creatinine 0.5 L
Glucose 91
Calcium 8.7
Total Bilirubin 9.1 H
AST 248 H
ALT 50
Alkaline Phosphatase 222 H
Vital Signs:
Vital Signs
Temp Pulse Resp BP Pulse Ox
97.9 F 118 18 160/116 98
10/21/23 07:00 10/21/23 07:00 10/21/23 07:00 10/21/23 07:00 10/21/23 07:00
I&O
10/20/23 10/21/23 10/22/23
06:59 06:59 06:59
Intake Total 1000 / 1000 480 / 480
Output Total 250 / 250
Balance 750 / 750 480 / 480
Physical Exam
-
General: Well Developed and No Apparent Distress
HEENT: Normocephalic, Atraumatic and Moist Mucous Membranes
Respiratory: Clear to Auscultation
Cardiac: Regular Rhythm and S1/S2; Negative Murmur, Rub or Gallop
GI: Soft, Nontender, Nondistended and Normal Bowel Sounds; Negative Organomegaly
Rectal: Deferred by Provider
Musculoskeletal: No Clubbing, No Cyanosis and No Edema
Skin: Warm and Jaundice; Negative Rash
Neuro: Awake, Alert, Oriented, AO x 3, Tremors and Nonfocal/Grossly Intact
Psych: Calm
[2023-10-21] MEDS: LOPRESSOR 12.5 MG PO ×2 (11:00→20:23)
[2023-10-21] MEDS: ZESTRIL 15 MG PO (11:00)
--- NOTE | 2023-10-21 13:29 | W.PN.UPDATE ---
Update Note
Progress Note Update
patient seen chart reviewed. while mr jansen, like yesterday, appears outwardly calm and not in the throes of withdrawal, his bp and pulse remain elevated. noted he is now on a standing dose of ativan and prns' msas scores according to nursing
with whom i spoke says they the are around four. asked dr lowery re bp , p elevations and he will review for increase in antihypertensive medications. noted bilirubin is going up rather than down. he was seen by gi this am. it appeared to me that
his abdomen was more swollen today. reviewed both ultrasounds no ascites noted. continue to encourage patient to make a concerted effort to stop drinking given the obvious toll on his youngish body. will follow
[2023-10-21 15:00] VITALS: BP 118/84
--- NOTE | 2023-10-21 16:10 | CM ---
patient with tremors,on prn ativan,subutex,monitor bp's.spoke with anuel bill.patient is interested in op etoh resources.
Plan home with op etoh resources.
[2023-10-21] MEDS: LOVENOX 40 MG SC (17:52)
[2023-10-21 19:00] VITALS: BP 121/83
[2023-10-21 23:00] VITALS: BP 122/76
[2023-10-22 03:00] VITALS: BP 123/90
[2023-10-22 06:48] LABS: % Basophils 0.8 % (0-2); % Eosinophils 1.9 % (0-6); % Immature Granulocytes 1.1 % (0-0.5); % Lymphocytes 11.6 % (20.5-51.1); % Neutrophils 73.6 % (42.2-75.2); Absolute Basophils 0.1 10^3/uL (0-0.2); Absolute Eosinophils 0.1 10^3/uL (0-0.7); Absolute Immature Granulocytes 0.1 10^3/uL (0-0.05); Absolute Lymphocytes 0.7 10^3/uL (1.2-3.4); Absolute Monocytes 0.7 10^3/uL (0.1-0.6); Absolute Neutrophils 4.7 10^3/uL (1.4-6.5); Hematocrit 37.7 % (39.0-52.0); Hemoglobin 12.9 g/dL (13.0-18.0); Mean Corp Hgb Conc. 34.2 g/dL (33.0-37.0); Mean Corpuscular Hgb 32.7 pg (27.0-31.0); Mean Corpuscular Volume 95.7 fL (80.0-94.0); Mean Platelet Volume 10.6 fL (7.4-10.4); Nucleated Red Blood Cells % 0 % (-); Platelet Count 143 10^3/uL (130-400); Red Blood Cell Count 3.94 10^6/uL (4.70-6.10); Red Cell Dist. Width 15.2 % (11.5-14.5); White Blood Cell Count 6.4 10^3/uL (4.8-10.8)
[2023-10-22 07:12] LABS: ALT (SGPT) 49 U/L (0-50); AST (SGOT) 241 U/L (17-59); Albumin 3.2 g/dl (3.5-5.0); Alkaline Phosphatase 250 U/L (38-126); Blood Urea Nitrogen 13 mg/dl (9-20); Calcium 8.8 mg/dl (8.4-10.2); Carbon Dioxide 26 mmol/L (22-30); Chloride 102 mmol/L (98-107); Estimated Creatinine Clearance > 125 ml/min; Glucose 107 mg/dl (70-99); Potassium 4.1 mmol/L (3.5-5.1); Sodium 135 mmol/L (135-145); Total Protein 6.5 g/dl (6.3-8.2); eGFR > 60.00
[2023-10-22] MEDS: SUBUTEX 8 MG SL ×2 (07:52→21:14)
[2023-10-22] MEDS: ZESTRIL 20 MG PO (07:52)
[2023-10-22] MEDS: FOLVITE 1 MG PO (07:52)
[2023-10-22] MEDS: VITAMIN B1 100 MG PO ×2 (07:52→21:14)
[2023-10-22] MEDS: LOPRESSOR 12.5 MG PO ×2 (07:53→21:14)
[2023-10-22] MEDS: ATIVAN 1 MG PO (07:53)
[2023-10-22 08:15] VITALS: BP 166/73
--- NOTE | 2023-10-22 11:34 | W.PN.UPDATE ---
Update Note
Progress Note Update
Psychiatry follow up for alcohol use disorder. Patient states he is feeling ok today. He is focused on discharge. Says he does not want inpatient alcohol treatment program but plans to pursue outpatient care on his own. We discussed options
including IOP, outpatient, AA and sponsorship. He understands.
MSE- good eye contact. fluent speech. logical and goal directed. mood is euthymic. denies SI/HI/AVH. no delusions. fully oriented.
A/P- 43 to make with severe alcohol use disorder/withdrawal, improved. plan is for outpatient D&A treatment after discharge. Psychiatry will sign off.
[2023-10-22 11:42] VITALS: BP 159/70
[2023-10-22 14:35] VITALS: BP 117/81
--- NOTE | 2023-10-22 14:56 | W.PN.HOSP.TC ---
Addendum entered and electronically signed by Krystal Ramon MD 10/22/23 16:16:
Total DC time 40 minutes
Original Note:
Today's Communication/Plan
-
DC today
Assessment / Plan
Assessment / Plan
Acute Alcohol hepatitis
- associated with elevated LFTs (AST>>ALT) and elevated bilirubin; cont outpt LFT follow up
- US without ascites
- tolerating diet.
- low DF score and not a candidate for steroids.
- appreciate GI input. Recc pt to follow up with GI outpatient
Chronic Alcoholism associated with clinical depression
Acute alcohol withdrawal
-monitor with MSAS protocol. No prior hx of seizures or hospitalizations with WD
-Due to heavy alcohol usage and elevated LFTs unable to do phenobarbital. Was started standing Ativan. At this point, standing Ativan is not felt needed anymore. DC further.
Psych has signed off
Hyponatremia
Hypokalemia
Hypocalcemia with normal albumin
- DC IVF
- electrolytes have normalized
Prior history of opiate abuse
- sober x 3 years; on Suboxone
Essential HTN
- Increased lisinopril to 20 mg daily and started Lopressor. BP stable, cont such regimen.
DVT ppx: Lovenox
Code: Full
Anticipated Discharge: Today
Subjective/Interval History
-
Date of Service: October 22, 2023
Objective Data
-
Labs:
Laboratory Results
10/22/23
06:28
WBC 6.4
Hgb 12.9 L
Hct 37.7 L
Plt Count 143
Sodium 135
Potassium 4.1
Chloride 102
Carbon Dioxide 26
BUN 13
Creatinine 0.6 L
Glucose 107 H
Calcium 8.8
Total Bilirubin 9.0 H
AST 241 H
ALT 49
Alkaline Phosphatase 250 H
Vital Signs:
Vital Signs
Temp Pulse Resp BP Pulse Ox
37.1 C 94 18 117/81 95
10/22/23 14:35 10/22/23 14:35 10/22/23 14:35 10/22/23 14:35 10/22/23 14:35
I&O
10/21/23 10/22/23 10/23/23
06:59 06:59 07:59
Intake Total 480 / 480 1080 / 1080
Balance 480 / 480 1080 / 1080
Review of Systems
-
All other systems: Reviewed and negative
Physical Exam
-
General: Well Developed, Well Nourished, No Apparent Distress, Comfortable and Obese
HEENT: Normocephalic, Atraumatic and Moist Mucous Membranes
Respiratory: Clear to Auscultation and Non Labored Respirations; Negative Accessory Resp Muscle Use
Cardiac: Regular Rhythm and S1/S2; Negative Murmur, Rub or Gallop
GI: Soft, Nontender, Normal Bowel Sounds and Distended
Rectal: Deferred by Provider
Musculoskeletal: No Clubbing, No Cyanosis and No Edema
Skin: Warm and Jaundice; Negative Rash
Neuro: Awake, Alert, Oriented, AO x 3 and Nonfocal/Grossly Intact
Psych: Calm and Intact Judgement/Insight
Data Reviewed
-
Labs: Labs Reviewed by me
--- NOTE | 2023-10-22 16:04 | W.DCSUMMARY ---
Discharge Summary
Discharge Data
Date of Admission: 10/18/23
Date of Discharge: 10/22/23
-
Pending Results: No
Hospital Course
Principal Diagnosis:
Acute Alcohol hepatitis
Acute alcohol withdrawal
Resolved electrolyte abnormalities including hyponatremia/hypokalemia/hypocalcemia
Chronic Diagnoses:�
Chronic Alcoholism associated with depression
Prior history of opiate abuse, sober x 3 years, on Suboxone
Essential hypertension
Consultations:�
Gastroenterology
Psychiatry
Procedures:�
None
Clinical course:�
This is a 43-year-old male, with past medical history as stated above, who presented with jaundice and generalized weakness/fatigue.
Problem 1:
Acute Alcohol hepatitis.
This was associated with alcohol withdrawal on admission.
The patient had elevated LFT (AST greater than ALT, which is consistent with alcohol hepatitis) and elevated bilirubin.
He has had several abdominal ultrasounds during his admission, all were negative for ascites but noted increased echogenicity in the liver compatible with underlying hepatocellular disease, which most commonly relates to fatty infiltration of the
liver.
Given his discrimination factor was low, he is not a candidate for steroid for his alcohol hepatitis.
He was seen by GI and was recommended to follow up with GI outpatient for continued alcoholic hepatitis management.
He was treated with [facility] protocol for the alcohol withdrawal. While in the hospital, he did receive standing doses of Ativan, which was not continued following discharge.
He can follow-up outpatient for Alcohol counseling and rehab per psychiatry.
Problem 2:
Essential hypertension.
His prior to admission lisinopril was increased from 5 mg to 20 mg daily.
Lopressor 12.5 mg twice daily was also added this admission for better blood pressure control.
His blood pressure has been stable on such regimen.
As for the rest of his medical problems, they were stable during his hospital stay.
Discharge Plan
-
Patient Disposition: Home (Routine Discharge)
Discharge Diagnosis/Procedures: Acute Alcohol hepatitis; Acute alcohol withdrawal with Chronic Alcoholism associated with depression
Condition: Fair
Diet: As tolerated
Additional Diets: do NOT drink alcohol
Activity: As tolerated
Driving Restrictions: Not until seen by your Dr
Blood Work: repeat LFT's and INR in 1 week
Referrals:
Nakia Villarreal MD [Active] - (follow up 3- 4weeks )
UNKNOWN - PT DOES,NOT KNOW [Family Provider] - in less than 1 week
Additional Discharge Medication Instructions: Your lisinopril was increased from 5 to 20 mg daily.
We have added Metoprolol 12.5 mg twice daily for better blood pressure and heart rate control
Prescriptions:
New
lisinopril 20 mg Tablet
20 mg PO DAILY Qty: 30 0RF
metoprolol tartrate 25 mg Tablet
12.5 mg PO BID Qty: 60 0RF
Continued
buprenorphine-naloxone 8-2 mg film
1 film sublingual DAILY
Patient Comments:
10/18/2023: Prescribed as BID, past few weeks has only been taking once daily.
Per photo from filled 10/18/23, 60 film for 30 days from [facility]
Discontinued
lisinopril 5 mg Tablet
5 mg PO DAILY Qty: 30 0RF
Discharge Orders:
Discharge Patient (As Directed); Ordered 10/22/23
Ordered By: Krystal Ramon
[2023-10-22] MEDS: FLUZONE QUAD 2023-2024 SYRINGE 0.5 ML IM (16:08)
--- NOTE | 2023-10-22 16:19 | CM ---
Pt for dc today. No further needs identified.
[2023-10-22] MEDS: LOVENOX SC (18:29)
[2023-10-22 19:05] VITALS: BP 138/80
--- NOTE | 2023-10-22 21:28 | PTCARENOTE ---
Pt. was written for discharge orders today, but couldn't pick him up until tomorrow, notified BRAVO Bunn.
--- NOTE | 2023-10-22 21:30 | W.PN.UPDATE ---
Update Note
Progress Note Update
unable to come tonight for pt discharge. She will come tomorrow.
[2023-10-22 23:00] VITALS: BP 122/78
[2023-10-23 03:00] VITALS: BP 130/85
[2023-10-23 06:46] LABS: ALT (SGPT) 41 U/L (0-50); AST (SGOT) 201 U/L (17-59); Albumin 2.9 g/dl (3.5-5.0); Alkaline Phosphatase 230 U/L (38-126); Blood Urea Nitrogen 12 mg/dl (9-20); Calcium 8.6 mg/dl (8.4-10.2); Carbon Dioxide 25 mmol/L (22-30); Chloride 105 mmol/L (98-107); Estimated Creatinine Clearance > 125 ml/min; Glucose 95 mg/dl (70-99); Potassium 3.7 mmol/L (3.5-5.1); Sodium 136 mmol/L (135-145); Total Bilirubin 7.8 mg/dl (0.2-1.3); eGFR > 60.00
[2023-10-23 07:00] VITALS: BP 126/60
[2023-10-23] MEDS: LOPRESSOR 12.5 MG PO (08:43)
[2023-10-23] MEDS: SUBUTEX 8 MG SL (08:44)
[2023-10-23] MEDS: ZESTRIL 20 MG PO (08:44)
[2023-10-23] MEDS: VITAMIN B1 100 MG PO (08:44)
[2023-10-23] MEDS: FOLVITE 1 MG PO (08:44)
== END 2023-10-23 11:26 | disposition home or self-care (01) | DRG 433 ==
LOC: 4 WEST ACU 22:04
PROVIDERS: Emergency Medicine; Nurse Practitioner Family; ADMITTING PHYSICIAN Internal Medicine; ATTENDING PHYSICIAN Internal Medicine; CONSULT PHYSICIAN Internal Medicine Gastroenterology; EMERGENCY PHYSICIAN Hospitalist
DX: K70.10 Alcoholic hepatitis without ascites (principal); E87.1 Hypo-osmolality and hyponatremia; F10.239 Alcohol dependence with withdrawal, unspecified; Y90.8 Blood alcohol level of 240 mg/100 ml or more; E83.51 Hypocalcemia; E87.6 Hypokalemia; F11.11 Opioid abuse, in remission; I10 Essential (primary) hypertension; K76.0 Fatty (change of) liver, not elsewhere classified
CPT/HCPCS: 71046; 76700; 76705; 80053; 80306; 80307; 81003; 82077; 82248; 83690; 83735; 84100; 85025; 85027; 85610; 85730; 86704; 86706; 86708; 86709; 86803; 87340; 93005; 96361; 96375; 99285

== ENCOUNTER 2023-11-29 21:13 | Inpatient (IN) | payer OTHER, SELFPAY ==
[2023-11-29] VITALS (8 sets, daily range): BP systolic 96–136; BP diastolic 60–123; BMI 28.9; BMI 29.3
[2023-11-29 14:34] LABS: % Basophils 0.8 % (0-2); % Eosinophils 0.2 % (0-6); % Immature Granulocytes 0.3 % (0-0.5); % Lymphocytes 13.5 % (20.5-51.1); % Monocytes 7.5 % (1.7-9.3); % Neutrophils 77.7 % (42.2-75.2); Absolute Basophils 0.1 10^3/uL (0-0.2); Absolute Lymphocytes 1.2 10^3/uL (1.2-3.4); Absolute Monocytes 0.7 10^3/uL (0.1-0.6); Absolute Neutrophils 6.9 10^3/uL (1.4-6.5); Hematocrit 35.2 % (39.0-52.0); Hemoglobin 12.8 g/dL (13.0-18.0); Mean Corp Hgb Conc. 36.4 g/dL (33.0-37.0); Mean Corpuscular Hgb 33.2 pg (27.0-31.0); Mean Corpuscular Volume 91.4 fL (80.0-94.0); Mean Platelet Volume 10.3 fL (7.4-10.4); Nucleated Red Blood Cells % 0 % (-); Platelet Count 118 10^3/uL (130-400); Red Blood Cell Count 3.85 10^6/uL (4.70-6.10); Red Cell Dist. Width 14.9 % (11.5-14.5); White Blood Cell Count 8.8 10^3/uL (4.8-10.8)
[2023-11-29 14:40] LABS: Urine Albumin Trace (Neg - Trace); Urine Bilirubin 3+ (Negative); Urine Character Clear (Clear); Urine Color Amber; Urine Glucose Negative (Negative); Urine Ketone 1+ (Negative); Urine Leukocyte 1+ (Negative); Urine Nitrite Negative (Negative); Urine Occult Blood Trace (Negative); Urine Urobilinogen 4+ (Neg - 1+); Urine pH 6.5 (5.0-9.0)
[2023-11-29 14:56] LABS: Urine Red Blood Cell 0-2 /HPF (0-2); Urine Squamous Cell 0-2 /LPF (Few)
[2023-11-29 14:58] LABS: Urine Bacteria Few (Negative)
[2023-11-29 15:01] LABS: Amphetamines Negative (Negative); Barbiturates Negative (Negative); Benzodiazepines Positive (Negative); Buprenorphine Positive (Negative); Cocaine Negative (Negative); Marijuana Negative (Negative); Methadone Negative (Negative); Methamphetamines Negative (Negative); Opiates Negative (Negative); Phencyclidine Negative (Negative); Tricyclic Antidepressants Negative (Negative)
[2023-11-29 15:12] LABS: Alcohol 408 mg/dl
[2023-11-29 15:22] LABS: ALT (SGPT) 72 U/L (0-50); AST (SGOT) 490 U/L (17-59); Albumin 3.1 g/dl (3.5-5.0); Alkaline Phosphatase 336 U/L (38-126); Blood Urea Nitrogen 6 mg/dl (9-20); Calcium 7.8 mg/dl (8.4-10.2); Carbon Dioxide 27 mmol/L (22-30); Chloride 100 mmol/L (98-107); Glucose 145 mg/dl (70-99); Lipase 69 U/L (23-300); Sodium 136 mmol/L (135-145); Total Bilirubin 11.3 mg/dl (0.2-1.3); Total Protein 7.2 g/dl (6.3-8.2); eGFR > 60.00
[2023-11-29 15:27] LABS: Fentanyl, Urine Negative (Negative)
--- NOTE | 2023-11-29 17:32 | ED.GENMED ---
History of Present Illness
General
Chief Complaint: Withdrawal Symptoms
Source: patient
Time Seen by Provider: 11/29/23 17:23
Nursing documentation reviewed up to this point in time: agreed with
Travel History
Have you had any contact with someone who has COVID-19?: No
Do you have any symptoms of coronavirus? Fever > 100 degrees, chills, cough, shortness of breath, sore throat, loss of taste or smell, muscle aches, or headache?: No
History of Present Illness
History of Present Illness:
Patient to ED requesting help for alcohol abuse. He was admitted 1 mos ago for same. States he continues to drink by less than his normal. Last drink was this AM - tequila and OJ. Reports feeling confused. Complains of hallucinations, unable to
recall most of his days. Panic attacks every morning. States his skin and eyes are yellow. Very tearful. Reports drinking approx 5 24oz alcoholic beverages daily although he states over the past few days he dropped down to 1 or 2. He doesnt
understand why his alcohol level is high today. Brought to ED by spouse for eval.
Past History
Past History
ED Past Medical History: HTN, Psychiatric (Anxiety/depression, substance abuse, alcohol abuse), Other (Drug and alcohol dependence) and Other (Alcoholic pancreatitis)
ED Past Surgical History: Other (Tracheotomy)
Social History
Tobacco: Former smoker
Alcohol: Daily
Drug: Former user (Hx of opiod abuse On Suboxone x 2 yrs)
Personal:
Living: with family
Review of Systems
Review of Systems
Allergies reviewed?: Yes
All Other Systems: ROS reviewed and negative except as documented in HPI and ROS
Constitutional: Reports fatigue
EENT: Reports no symptoms
Respiratory: Reports no symptoms
Cardiac: Reports no symptoms
ABD/GI: Reports nausea
: Reports dark urine
Musculoskeletal: Reports no symptoms
Skin: Reports other (jaundice)
Neurological: Reports weakness and other (frequent blackouts)
Psychiatric: Reports depression, anxiety and hallucinations
Phy Exam
General Physical Exam
General Presentation: mild distress
General age: appears stated age
General Skin: warm, dry and other (Jaundice)
General Habitus: normal
General Mental: anxious and tearful
Cardiovascular Exam
Cardiovascular Exam: regular rate/rhythm and no edema
Pulmonary Exam
Pulmonary Exam: lungs clear and no respiratory distress
Gastrointestinal Exam
Gastrointestinal Exam: normal bowel sounds, soft and distended
Musculoskeletal Exam
Musculoskeletal Exam: full ROM and neuro vasc intact
Skin Exam
Skin Exam: jaundice
Psychiatric Exam
Psychiatric Exam: normal mood/affect
Course
Orders/Labs/Results
Orders:
Orders
11/29/23 14:13
Electrocardiogram (*1) Urgent
Reason for Study: Abdominal Pain
EKG- Treatment ONCE
11/29/23 14:25
Alcohol Urgent
Complete Blood Count/With Diff Urgent
Comprehensive Metabolic Panel Urgent
Fentanyl, Urine Urgent
Lipase Urgent
Urinalysis Reflex To Culture Urgent
Date Specimen was Collected: 11/29/23
Time Specimen was Collected: 14:13
Urine Drug Abuse Screen Urgent
Date Specimen was Collected: 11/29/23
Time Specimen was Collected: 14:13
Urine Microscopic Reflex Cult Urgent
Urine Culture Urgent
[place] Source: U
Specimen Description:
Date Specimen was Collected: 11/29/23
Time Specimen was Collected: 14:13
11/29/23 17:31
US Abdomen Complete/Upper Urgent
Comment:
Reason For Exam: jaundice, abd. distention, elevated tbili
11/29/23 18:00
0.9% Sodium Chloride 1000 ml [Nss] 1,000 ml Mvi, Adult [Multivitamin] 10 ml Thiamine Injection 100 mg IV 250 mls/hr
11/29/23 20:30
Admit/Transfer Patient As Directed
Co-Sign Provider:
Level of Care: Inpatient admission
Assign to:: IMU- Intermediate Care
Physician / Group: katinay
Diagnosis: acute ETOH hepatitis, Hi risk for DTs, svere ETOH use disorder
Reason for Hospitalization: acute ETOH hepatitis, Hi risk for DTs, svere ETOH use disorder
Expected length of stay greater than two midnights?: Yes
ELOS- Estimated Length of Stay in days: 5
I certify the patient meets the requirements for IP care: Yes
11/29/23 20:32
Code Status As Directed
Resuscitation Status: Full Code
11/29/23 20:57
INR [Prothrombin Time] Urgent
Tylenol [Acetaminophen] Routine
11/29/23 21:44
0.9% Sodium Chloride [Nss (Preservative Free)] See Protocol IV PRN PRN
Bisacodyl [Dulcolax] 10 mg RECTAL [id number] PRN
Calcium Gluconate 1 gram/100mL [Calcium Gluconate] 1 gram in 100 ml IV ONCE
Docusate W/Senna [Senokot-S] 1 tablet PO BIDPRN PRN
FOLic ACID [Folvite] 1 mg 0.9% Sodium Chloride 50 ml [Nss] 50 ml IV DAILYPRN
Lorazepam [Ativan] 1 mg IV Q1HPRN PRN
Lorazepam [Ativan] 1 mg PO Q2HPRN PRN
Lorazepam [Ativan] 2 mg IV Q1HPRN PRN
Polyethylene Glycol Powder [Miralax] 17 grams PO DAILYPRN PRN
11/29/23 21:44
Case Management Consult Once
Case Management Consult: Other
Comment: Substance abuse counseling
DIETARY CONSULT Routine
Reason for Consult: Nutrition support, possible refeeding guidelines
Activity As Directed
Activity Level: With Assistance
Compression Sleeves [Pneumatic Compression Sleeves] As Directed
Type: Knee high
Intake/ Output As Directed
Frequency: Per unit guidelines
MSAS SCORE As Directed
MSAS Score 0-4: Repeat MSAS every 2 hours until 0-4 for three consecutive assessments, then every 4 hours x 48
hours.
MSAS Score 5-7: For MILD withdrawl symptoms. Repeat MSAS and RASS every 2 hours
MSAS Score 8-11: For MODERATE withdrawal symptoms. Repeat MSAS and RASS every 1 hour. Consider ICU or IMU
level of care.
MSAS Score > 11: For SEVERE withdrawal symptoms. Repeat MSAS and RASS every 1 hour. Notify provider, consider
ICU level of care.
MSAS Additional Instructions: If no improvement or no decrease in score from severe to moderate within 12
hours, consult psychiatry
MSAS Notify Provider: Notify provider if patient requires more than 10 mg of Lorazepam in eight hour period.
Vital Signs As Directed
Frequency: Per unit guidelines
DX Deep Vein Thrombosis Video Routine
11/29/23 22:03
0.9% Sodium Chloride 1000 ml [Nss] 1,000 ml IV 80 mls/hr
11/30/23 00:00
Thiamine Injection 200 mg IV Q8
11/30/23 Breakfast
Regular
At Your Request: Limited Participation
Complete Blood Count/No Diff IN AM
Comprehensive Metabolic Panel IN AM
NH3 [Ammonia] IN AM
Prothrombin Time IN AM
11/30/23 08:00
Buprenorphine [Subutex] 8 mg SL DAILY
FOLic ACID [Folvite] 1 mg PO DAILY
Lisinopril [Zestril] 20 mg PO DAILY
Metoprolol [Lopressor] 12.5 mg PO BID
12/03/23 08:00
Thiamine HCl [Vitamin B1] 100 mg PO BID
Abnormal Lab Results
11/29/23 11/29/23
14:25 20:57
RBC 3.85 L 10^6/uL
(4.70-6.10)
Hgb 12.8 L g/dL
(13.0-18.0)
Hct 35.2 L %
(39.0-52.0)
MCH 33.2 H pg
(27.0-31.0)
RDW 14.9 H %
(11.5-14.5)
Plt Count 118 L 10^3/uL
(130-400)
Absolute Neuts (auto) 6.9 H 10^3/uL
(1.4-6.5)
Absolute Monos (auto) 0.7 H 10^3/uL
(0.1-0.6)
Neutrophils % 77.7 H %
(42.2-75.2)
Lymphocytes % 13.5 L %
(20.5-51.1)
PT 22.5 H Sec
(11.4-14.6)
BUN 6 L mg/dl
(9-20)
Creatinine 0.6 L mg/dL
(0.7-1.3)
Glucose 145 H mg/dl
(70-99)
Calcium 7.8 L mg/dl
(8.4-10.2)
Total Bilirubin 11.3 H mg/dl
(0.2-1.3)
AST 490 H U/L
(17-59)
ALT 72 H U/L
(0-50)
Alkaline Phosphatase 336 H U/L
(38-126)
Albumin 3.1 L g/dl
(3.5-5.0)
Urine Ketones 1+ A
(Negative)
Ur Occult Blood Reflex Trace A
(Negative)
Urine Bilirubin 3+ A
(Negative)
Urine Urobilinogen 4+ A
(Neg - 1+)
Leukocyte Esterase Rfl 1+ A
(Negative)
Urine WBC (Reflex) 11-15 A /HPF
(0-5)
Urine Bacteria (Reflex) Few A
(Negative)
Ur Buprenorphine Positive H
(Negative)
Acetaminophen < 10 L ug/ml
(10-30)
U Benzodiazepines Scrn Positive H
(Negative)
Alcohol, Quantitative 408 H* mg/dl
11/29/23 14:25
11/29/23 14:25
Vital Signs
Initial and Last Documented VS:
Initial Vital Signs
Temp Pulse Resp BP Pulse Ox
98.7 F 122 20 125/90 97
11/29/23 14:00 11/29/23 14:00 11/29/23 14:00 11/29/23 14:00 11/29/23 14:00
Last Documented Vital Signs
Temp Pulse Resp BP Pulse Ox
98.5 F 107 14 128/85 93
11/29/23 23:15 11/29/23 22:00 11/29/23 22:00 11/29/23 22:00 11/29/23 22:46
*Pulse Oximetry
Patient hypoxic: no
*Critical Care Note
Total Time (30-74mins, 75-104mins- exclusive of procedures): Not Applicable
ED Attending Note
-
Portions of this chart may have been created with voice recognition software.� Occasional wrong word or��sound alike� substitutions may have occurred due to the inherent limitations of voice recognition software.
Discharge Plan
Departure
Patient Disposition: Admit
Date of Disposition: 11/29/23
Time of Disposition: 19:22
Presentation/result/management discussed w/ accepting MD/DO: Hospitalist
Patient with high blood pressure during this ER visit?: No
Condition: Fair
Discharge Problem:
AH (alcoholic hepatitis)
Interventions
Interventions:
*Risk Screen - Suicide Last Done: 11/29/23 14:00
*General Assessment Last Done: 11/29/23 14:00
*Neglect/Abuse Screening Last Done: 11/29/23 14:00
ED- Fall Risk Assessment Last Done: 11/29/23 17:53
*ED COVID-19 Vaccine History Last Done: 11/29/23 17:45
*Nursing Disposition Last Done: 11/29/23 21:52
ED- Neurological Assessment Last Done: 11/29/23 17:45
ED-Psychological Assessment Last Done: 11/29/23 17:45
Discharge Date and Time
Discharge Date/Time: 11/29/23 21:55
[2023-11-29] MEDS: MULTIVITAMIN 1011 ML IV (18:52)
[2023-11-29] MEDS: MULTIVITAMIN 1011 MG IV (18:52)
--- NOTE | 2023-11-29 20:19 | HPS.HSE ---
Addendum entered and electronically signed by Sundar Carter MD 11/29/23 21:10:
Correction:
Hypocalcemia with Alb 3.1 <del>normal</del> <del>albumin</del>
- continue IVF
- 1gm IV calcium gluconate
- repeat ca in AM
Original Note:
Family Physician
-
Family Physician: * NONE
Chief Complaint
-
weakness, dark urine , panick attack, noted skin and eyes are yellow
History of Present Illness
43M BiB Spouse to ER with HX severe ETOH use disorder, acute ETOH hepatitis reuired admission 5 weeks ago. he continues to drink.
Today pw weakness, dark urine , panick attack, noted skin and eyes are yellow
ETOH use:
5 of 24oz alcoholic beverages daily although he states over the past few days he dropped down to 1 or 2.
Last ETOH this AM ETOH level 408
Medical History
Past Medical History
Past Medical History: Reports Psychiatric (anxiety/depression, hx of opiate abuse) and Other (chr sever e ETOH use disorder, ETOH hepatitis )
Past Surgical History: Reports Other ([facility] 2020 reverse)
Social History
Tobacco: Non-smoker
Alcohol: Other (5 of 24oz alcoholic beverages daily)
Drug: Former User (on Suboxone )
Personal:
Living: With Family
Family History
Family History: Not pertinent
Allergies / Home Medications
Allergies reflects when Allergies were last updated in [facility].
Home Medications with original date entered in [facility]
Allergy/Medication List:
Allergies
Allergy/AdvReac Type Severity Reaction Status Date / Time
No Known Allergies Allergy Verified 10/18/23 18:29
Home Medications
buprenorphine 8 mg-naloxone 2 mg sublingual film 1 film sublingual DAILY opioid use disorder 11/28/22
lisinopril 20 mg tablet 20 mg PO DAILY HTN #30 tabs 10/22/23
metoprolol tartrate 25 mg tablet 12.5 mg (1/2 x 25 mg) PO BID HTN #60 tabs 10/22/23
Review of Systems
-
Constitutional: Reports Fatigue
EENT: Reports See HPI (yellow eye )
Respiratory: Reports No Symptoms
Cardiac: Reports No Symptoms
: Reports See HPI and Dark Urine
Musculoskeletal: Reports No Symptoms
Skin: Reports No Symptoms
Neurological: Reports Weakness
Endocrine: Reports No Symptoms
Hematologic/Lymphatic: Reports No Symptoms
Psych: Reports Audio or Visual Hallucinations
Physical Exam
Vital Signs
Vital Signs
Temp Pulse Resp BP Pulse Ox
98.7 F 122 20 108/83 97
11/29/23 14:00 11/29/23 14:00 11/29/23 14:00 11/29/23 19:13 11/29/23 14:00
Physical Exam
General: Well Developed, No Apparent Distress, Comfortable, Conversant and Obese; No Respiratory Distress, Pain, Fever, Chills or Cachectic
HEENT: NormoCephalic, Anicteric (icteric sclera ) and Moist mucous membranes
Respiratory: Clear; No Wheezes, Rales or Rhonchi
Cardiac: S1/S2, Regular Rhythm and Tachycardia
Breast: Deferred by me
GI: Soft and Distended (mildly )
Rectal: Deferred by Provider
Genito-urinary: Deferred by me
Musculoskeletal: No Edema
Skin: Jaundice
Neuro: AO x 3 and Other (no aserix )
Psych: Calm and Anxious; No Confused or Agitated
Laboratory Results
-
11/29/23 14:25
11/29/23 14:25
Laboratory Results
Total Bilirubin 11.3 mg/dl (0.2-1.3) H 11/29/23 14:25
AST 490 U/L (17-59) H 11/29/23 14:25
ALT 72 U/L (0-50) H 11/29/23 14:25
Alkaline Phosphatase 336 U/L (38-126) H 11/29/23 14:25
Lipase 69 U/L (23-300) 11/29/23 14:25
Data Reviewed
-
Lab Data: Labs Reviewed by me
Old Records: Reviewed
Impression/Plan
-
VS: Afebrile Tachycardic BP range 96/67- 120/90
Data
Nl Na
Hgb 12.8
Nl MCV
BUN 6
Cr 0.6
BG 145
Ca 7.8
TB 11.3
AST 490 ALT 72 AKP 336 Alb 3.1
INR
MELD Na 22
ETOH 408
UDS: POS Buprenorphine ( on Suboxone) POS BZD
EKG
NORMAL SINUS RHYTHM
NORMAL ECG
WHEN COMPARED WITH ECG OF 18-OCT-2023 18:34,
NONSPECIFIC T WAVE ABNORMALITY NOW EVIDENT IN ANTERIOR LEADS
Last hospitalist admission: 10/18/23 - 10/22/23
Acute Alcohol hepatitis
Acute alcohol withdrawal
Resolved electrolyte abnormalities including hyponatremia/hypokalemia/hypocalcemia
ASSESSMENT & PLAN
Acute Alcohol hepatitis
MELD Na 22 7-10% est 90 day mortality
Selene DF 24-25
- trend INR,PT, Na and LFts
- No indication for Steroid
- Cessation of ETOH
- GI consult
Hi risk got evolving ETOH WDS /DTS
Current panic attack and confusion and hallucination s
Chronic Alcoholism associated with clinical depression
Tachycardia
- NH3
- MSAS protocol.
- Psych consult
Hypocalcemia with normal albumin
- continue IVF
- replete calcium
- repeat AM labs
Prior history of opiate abuse
- sober x 3 years; on Suboxone daily
Essential HTN
- continue ANN
DVT ppx: Lovenox
Code: Full
IMU
[2023-11-29 21:18] LABS: PT 22.5 Sec (11.4-14.6)
[2023-11-29 21:19] LABS: Acetaminophen < 10 ug/ml (10-30)
[2023-11-29] MEDS: CALCIUM GLUCONATE 100 IV (22:12)
[2023-11-29] MEDS: ATIVAN 1 MG PO (22:12)
[2023-11-29] MEDS: THIAMINE INJECTION 200 MG IV (22:13)
[2023-11-29] MEDS: NSS 1000 IV (22:13)
--- NOTE | 2023-11-29 22:54 | PTCARENOTE ---
pt admitted from ED- pt is AAOx3- anxious and tearful at times by cooperative with care. MSAS-6, ativan given per MAR. sclera of eyes yellow, NSR on the monitor. 93% RA. no c/o pain. pt admits to poor appetite. states he feels hungry, tries to eat
and then is full right away. IV fluids hung and infusing. VSS. pt oriented to room, call funes within reach, care ongoing.
[2023-11-30] VITALS (11 sets, daily range): BP systolic 96–143; BP diastolic 74–106; BMI 29.6
[2023-11-30] MEDS: ATIVAN 1 MG PO ×7 (03:25→21:10)
--- NOTE | 2023-11-30 04:47 | DOWNTIME ---
There was a [employer] Client Surgeon'S Assistant Downtime on 11/30/2023 from 0100 to 11/30/2023 at 0439. Downtime documentation of patient's care, including medication administrations, has been reconciled in the electronic record per guidelines. Refer to the
patient's paper chart under the miscellaneous tab to see printed paper medication records and downtime forms.
[2023-11-30 05:45] LABS: Hemoglobin 11.2 g/dL (13.0-18.0); Mean Corpuscular Hgb 32.7 pg (27.0-31.0); Mean Corpuscular Volume 93.3 fL (80.0-94.0); Red Blood Cell Count 3.43 10^6/uL (4.70-6.10); Red Cell Dist. Width 14.9 % (11.5-14.5); White Blood Cell Count 6.7 10^3/uL (4.8-10.8)
[2023-11-30 05:56] LABS: INR 1.94
[2023-11-30 06:01] LABS: Ammonia 32 umol/L (9-30)
[2023-11-30 06:13] LABS: ALT (SGPT) 68 U/L (0-50); AST (SGOT) 425 U/L (17-59); Albumin 2.7 g/dl (3.5-5.0); Alkaline Phosphatase 293 U/L (38-126); Blood Urea Nitrogen 6 mg/dl (9-20); Calcium 7.7 mg/dl (8.4-10.2); Carbon Dioxide 29 mmol/L (22-30); Chloride 103 mmol/L (98-107); Estimated Creatinine Clearance > 125 ml/min; Glucose 80 mg/dl (70-99); Potassium 4.6 mmol/L (3.5-5.1); Sodium 136 mmol/L (135-145); Total Protein 6.3 g/dl (6.3-8.2); eGFR > 60.00
[2023-11-30 06:57] LABS: Mean Platelet Volume 10.9 fL (7.4-10.4); Platelet Count 95 10^3/uL (130-400)
--- NOTE | 2023-11-30 07:32 | W.PN.HOSP.TC ---
Today's Communication/Plan
-
see plan
Assessment / Plan
Assessment / Plan
Last hospitalist admission: 10/18/23 - 10/22/23
Acute Alcohol hepatitis
Acute alcohol withdrawal
Resolved electrolyte abnormalities including hyponatremia/hypokalemia/hypocalcemia
ASSESSMENT & PLAN
Acute Alcohol hepatitis
MELD Na 23; 19.6% est 90 day mortality
Maddrey DF 48.8
- trend INR, PT, Na and LFts
- IVF
- discussing with GI if steroid should be initiated
- Cessation of ETOH - patient wants to go to inpatient rehab post hospitalization
- GI consult
Hi risk of evolving ETOH WDS /DTS
Current panic attack and confusion and hallucination s - resolved this morning
Chronic Alcoholism associated with clinical depression
Tachycardia
- NH3 32
- MSAS protocol.
- Psych consult
Hypocalcemia
- s/p 1G overnight
- corrected CA this AM = 8.7
Prior history of opiate abuse
- sober x 3 years; on Suboxone daily
Essential HTN
-hold lisinopril with low BP this AM
DVT ppx: Lovenox
Code: Full
IMU
Anticipated Discharge: > 48 hours
Subjective/Interval History
-
Date of Service: November 30, 2023
awoken from sleep
denies pain
states abdomen not more distended than normal
feels hungry, states haven't eaten in a while
Objective Data
-
Labs:
Laboratory Results
11/29/23 11/30/23 11/30/23
20:57 05:35 05:36
WBC 6.7
Hgb 11.2 L
Hct 32.0 L
Plt Count 95 L
PT 22.5 H 22.0 H
INR 2.00 1.94
Sodium 136
Potassium 4.6
Chloride 103
Carbon Dioxide 29
BUN 6 L
Creatinine 0.6 L
Glucose 80
Calcium 7.7 L
Total Bilirubin 12.0 H
AST 425 H
ALT 68 H
Alkaline Phosphatase 293 H
Vital Signs:
Vital Signs
Temp Pulse Resp BP Pulse Ox
98.2 F 84 13 96/74 92
11/30/23 03:15 11/30/23 06:00 11/30/23 06:00 11/30/23 06:00 11/30/23 06:00
Review of Systems
-
History Source: Patient
All other systems: Reviewed and negative
Physical Exam
-
General: Well Developed, Well Nourished, No Apparent Distress and Comfortable
HEENT: Normocephalic, Atraumatic and Moist Mucous Membranes
Respiratory: Clear to Auscultation and Non Labored Respirations; Negative Accessory Resp Muscle Use
Cardiac: Regular Rhythm and S1/S2; Negative Murmur, Rub or Gallop
GI: Soft, Nontender and Distended
Rectal: Deferred by Provider
Musculoskeletal: No Clubbing, No Cyanosis and No Edema
Skin: Warm and Jaundice; Negative Rash
Neuro: Awake, Alert, Oriented, AO x 3, Nonfocal/Grossly Intact and Other (mild tremors )
Psych: Calm
Data Reviewed
-
Diagnostic Radiology: Report Reviewed by me
Labs: Labs Reviewed by me
[2023-11-30] MEDS: SUBUTEX 8 MG SL (07:50)
[2023-11-30] MEDS: LOPRESSOR PO (07:50)
[2023-11-30] MEDS: FOLVITE 1 MG PO (07:51)
[2023-11-30] MEDS: THIAMINE INJECTION 200 MG IV ×2 (07:51→15:14)
[2023-11-30 08:19] LABS: Magnesium 2.1 mg/dl (1.6-2.3); Phosphorus 3.9 mg/dl (2.5-4.5)
--- NOTE | 2023-11-30 09:48 | PTCARENOTE ---
Patient received from ear nose throat surgeon. Patient resting comfortably in bed. SALLIE VALENZUELA. Currently on MSAS protocol. Shift change MSAS 5, see MAR and continuing at Q2 MSAS pending score. Last drink was noon yesterday. IVF @ 80mL/hr. Breakfast
ordered. Call funes in reach.
--- NOTE | 2023-11-30 10:00 | CON.GI ---
Consultation
-
Date/Time Consultation Requested: 11/30/23
Date/Time Consultation Performed: 11/30/23
Requesting Provider: Dr. Valerio
Performing Provider: Dr. Barnett
Reason for Consultation: Alcohol Hepatitis
Medical History
Chief Complaint / HPI
Chief Complaint: 'i want to detox,' jaundice, weakness
History of Present Illness:
Toño Rodríguez is a 43 y.o. male with history of polysubstance abuse (opioids/alcohol/intravenous), recurrent alcohol pancreatitis, hx of VDRF with tracheostomy and reversal, on subutex, HTN with noncompliance who presents for worsening weakness
and jaundice in the setting of recent alcohol binge. He reports struggling with his sobriety, was temporarily sober for about 2 months, relapsed 4 months ago. Admits to daily EtoH use, typically drinks 3-4 4 LOKOS daily, this past week was drinking
half bottle of tequila. Denies family history of HCC, father is currently dying from decompensated etoh cirrhosis. Denies history of withdrawal seizures. He denies any change in bowel habits, melena or hematochezia. 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
20 years ago, he was then addicted to opiates-- he was making his own opium with poppy seeds, now on subutex for the last 2.5 years. He is very interested in being discharged to inpatient rehab. Other than fatigue, mostly nocturnal tremors,dark
colored urine, jaundice, denies pruritis. He has never had EGD or Colonoscopy before. No reported history of GI bleeding. Denies excessive Tylenol use, recent antibiotics or NSAID use.
Labs: WBC 6.7, Hgb 11.2, MCV 93.3, Plt 118 -->95, previously 143, INR 1.94, PT 22, Na 136, K 4.6, Cl 103, CO2 29, BUN 6/Cr. 0.6, Tbili 12.0 (previously 7.8 on recent discharge) /AST 425/ALT 68/Alk phos 293, Lipase 69. EtOH 408.
Abdominal US demonstrates severe diffuse hepatic steatosis, no focal liver lesions. No evidence of cholelithiasis or cholecystitis. No biliary ductal dilatation. No dopplers obtained with US.
Hepatitis serologies (10/19/23): HAV Ab total neg (lacks immunity), HBsAg neg, HBcAb neg, HBsAb neg (lacks immunity), HCV Ab neg
He admits to 3 prior similar hospital admissions, most recently at last month. from 10/17-10/21 for alcohol hepatitis, admitting labs at that time, WBC 5.7, hemoglobin 13.6, platelets 150,000, INR 1.43, PT 17.3, sodium 132, potassium 3.2, BUN 3,
creatinine 0.5, magnesium 2.1, total bilirubin 4.9, direct bilirubin 3.5, AST 394, ALT 61, alk phos 284, lipase 92. Ultrasound imaging was done to assess for ascites which was negative. His DF was <32 during admission so steroids were not given.
Denies ever getting steroids in the past.
Past Medical History
Past Medical History: HTN and Other (recurrent pancreatitis, alcohol abuse, hx substance abuse on Subutex, hx VDRF requiring tracheostomy/PEG with reversal)
Past Surgical History: Other (tracheostomy/PEG with reversal)
Social History
Tobacco: Non-Smoker
Alcohol: Chronic Alcoholic
Drug: Former User and Other (hx heroin abuse on Subutex)
Family History
Family History: Reviewed & Not Pertinent (Father with alcohol user disorder) and Other
Allergies / Home Medications
Allergy/AdvReac Type Severity Reaction Status Date / Time
No Known Allergies Allergy Verified 10/18/23 18:29
�Medication �Instructions �Recorded
buprenorphine 8 mg-naloxone 2 mg 1 film sublingual DAILY opioid use 11/28/22
sublingual film disorder
lisinopril 20 mg tablet 20 mg PO DAILY HTN #30 tabs 10/22/23
metoprolol tartrate 25 mg tablet 12.5 mg (1/2 x 25 mg) PO BID HTN 10/22/23
#60 tabs
Review of Systems
-
All other systems: A 12 pt ROS was Negative except as stated above in HPI
Vital Signs
Temp Pulse Resp BP Pulse Ox
98.2 F 100 12 120/88 91
11/30/23 03:15 11/30/23 08:00 11/30/23 08:00 11/30/23 08:00 11/30/23 09:27
Physical Exam
Exam
General: Well Developed, Comfortable and Other (Jaundice)
HEENT: Other (Scleral icterus)
Respiratory: Non Labored Respirations
Cardiac: S1/S2 and Other (Tachycardic)
Breast: Deferred by me
GI: Soft, Non Tender, Non Distended and Normal Bowel Sounds
Rectal: Deferred by Provider
Skin: Warm and Other (Jaundice)
Neuro: AO x 3, Nonfocal/Grossly Intact and Other (No asterixes)
Psych: Calm
Results
WBC 6.7 10^3/uL (4.8-10.8) 11/30/23 05:35
Hgb 11.2 g/dL (13.0-18.0) L 11/30/23 05:35
Hct 32.0 % (39.0-52.0) L 11/30/23 05:35
MCV 93.3 fL (80.0-94.0) 11/30/23 05:35
Plt Count 95 10^3/uL (130-400) L 11/30/23 05:35
Absolute Neuts (auto) 6.9 10^3/uL (1.4-6.5) H 11/29/23 14:25
PT 22.0 Sec (11.4-14.6) H 11/30/23 05:36
INR 1.94 11/30/23 05:36
Sodium 136 mmol/L (135-145) 11/30/23 05:35
Potassium 4.6 mmol/L (3.5-5.1) 11/30/23 05:35
Chloride 103 mmol/L (98-107) 11/30/23 05:35
Carbon Dioxide 29 mmol/L (22-30) 11/30/23 05:35
BUN 6 mg/dl (9-20) L 11/30/23 05:35
Creatinine 0.6 mg/dL (0.7-1.3) L 11/30/23 05:35
Calcium 7.7 mg/dl (8.4-10.2) L 11/30/23 05:35
Total Bilirubin 12.0 mg/dl (0.2-1.3) H 11/30/23 05:35
AST 425 U/L (17-59) H 11/30/23 05:35
ALT 68 U/L (0-50) H 11/30/23 05:35
Alkaline Phosphatase 293 U/L (38-126) H 11/30/23 05:35
Lipase 69 U/L (23-300) 11/29/23 14:25
Diagnostic Image Results:
Prior GI Procedures: No prior
EGD:
Colonoscopy:
Assessment / Plan
-
Toño is a 43 y.o. male with polysubstance abuse disorder on subutex with recurrent etoh pancreatitis who presents for readmission for alcohol hepatitis.
#Alcohol hepatitis c/b thrombocytopnia
-Abdominal US with severe steatosis, suspect his alc hepatitis is resulting in some degree of portal HTN, despite lack of cirrhosis
-will check US w/ dopplers to rule out DVT
-INR is mildly elevated-- likely some nutritional component, patient was hypoglycemic overnight but I do not feel he has signs of acute liver failure, however, will continue to monitor glucose, mental status, sodium and INR very closely
-Calculated DF = 48.8 --> given no signs of infection, recommend initiating steroids with plan to calculate an (early) day 3 Lille score. Start Prednisolone 40mg daily
-given his age and history of depression, will check ceruloplasmin as well as A1AT, anti-LKM, ASMA, AMA, IgG4/subclassess for completeness but certainly his degree of alcohol use accounts for clinical presentation
-will also check acetaminophen and salicylate levels for completeness
-IVF, *nutrition!
-0high risk of etoh withdrawal
-Lacks immunity to both Hepatitis A and Hepatitis B. Should be vaccinated-- if able to get inpatient, will order, if not, should be addressed in outpatient setting
Data Reviewed
-
Radiology: Report Reviewed by me
Ultrasound: Report Reviewed by me
Old Records: Reviewed
-
-
Thank you for consultation and allowing me to participate in the patient's care. Please call the interrelated special education teacher GI physician during the after hours with any questions or concerns.
[2023-11-30] MEDS: NSS 1000 IV ×2 (10:37→21:08)
--- NOTE | 2023-11-30 12:27 | CON.MD ---
Consultation - Medical
-
patient seen chart reviewed. spoke with nursing and with dr vazquez. this patient is known to me having been seen in october of 2023 under similar circumstances. he is a 43 year old and comes to w complaint of 'help' with stopping drinking. the last
admit was precipitated by abd pain/ nausea and vomiting/ 'yellow eyes'. he was advised at that time by this leader writer to strongly consider in patient rehab and the ravages of etoh upon his body were discussed with him. he declined in patient treatment
as he felt he could not spare the time away from his job. he relapsed quickly explaining today that the stress of his life....job finances raising three kids and being the sole wage earner in his family would just get to him and it started with
one drink and was downhill from there. he says he is now recognizing he needs to go to rehab and is accepting being referred for in patient treatment. he does acknowledge that he is depressed . he has had suicidal thought but no intent or plan and
cites his children as a reason to continue to fight. sleep not good. appetite also not good. does not enjoy much and energy level is fair. he is consuming five 25 oz drinks per day which he says he had cut back to one or two and his last drink was
early on the day of admission. prior to admit he had felt somewhat confused with auditory hallucinations but these are not present currently. he has required ativan as per msas. he has had 3 mg so far today with reasonable response of withdrawal sx.
blood etoh level on admit 405.
past psych hx no psych admits. patient has never been rx for depression although he has c/o depression see above patient was in rehab x3 twice at [place] and once at [place]
medical hx anemia hypocalcemia qtc ok htn elevated lft's hx pancreatitis alcoholic bal 408 urine culture results pending bp 120/88 p 100
fh alcoholism dad is 'dying' of etoh related complications right now in [facility]
etoh see above. in the distant past hx opiate abuse took suboxone for several years
social hx three kids the youngest is three lives w family works as a contractor. reports childhood was +
mse alert ox3 cooperative speech and thought process nl mood is dysphoric see above re si no psychosis aver intelligence insight judgment maybe getting better as he is recognizing severity of his alcoholism and the need for rx
dx etoh use disorder severe etoh withdrawal r/o depression
plan continue msas for now. last go around considered phenobarb but held off bc transaminitis. will continue to monitor. he is accepting of in patient rehab which in my opinion is the most important thing. he already has the example of his father
about what etoh can do and expressed concern that he does not want to further hurt his mom or his and family. bcares consult. explained to him that he needs tools to stay sober tools that he does not have at this point. antidepressants may
be appropriate at some point but his alcoholism requires its own rx and antidepressants will not make him sober. will follow
[2023-11-30] MEDS: PRELONE 40 MG PO (12:34)
--- NOTE | 2023-11-30 15:16 | CM ---
Patient with Dx Acute Alcohol hepatitis, Hi risk of evolving Etoh withdrawal. Room air. Alcohol level 408. Psych consult noted. Receiving Subutex. MSAS.
Met with patient who resides in a 2 story house with his and 3 children.
The patient has been independent in ADLs and ambulation.
He states he has been dizzy when ambulating the last few days.
The patient has no DME or prior VN.
Food insecurity- patient states he is curently not working. He has had some worries about affording food for his family. His already applied for food stamps. Asked him to confirm with that they have enough resources for food, or CM will
provide.
PCP - has new PCP selected but not seen, can't remember name
Pharmacy - [facility]
CM Consult: Substance Abuse
Patient says he was recently discharged to [facility] for Etoh Rehab however did not stay and went home.
He states he realizes now he needs to do an Inpatient program and would like to go back to [facility].
[facility] and he agrees.
CM spoke with Yeison from [facility]; he met with the patient, and he is trying to get the patient accepted at [facility].
Message to Dr Valerio; patient may benefit from PT Eval due to report of dizzy when ambulating.
Plan follow up after PT Eval.
Plan follow up with [facility] for acceptance at [facility].
[2023-11-30 16:53] LABS: Acetaminophen < 10 ug/ml (10-30); Salicylate < 1.0 mg/dl (2.0-20.0)
[2023-11-30] MEDS: LOVENOX 40 MG SC (17:26)
[2023-11-30] MEDS: LOPRESSOR 12.5 MG PO (21:10)
[2023-12-01] VITALS (34 sets, daily range): BP systolic 94–176; BP diastolic 71–154; PULSE 113; O2SAT 92; BMI 30.2
[2023-12-01] MEDS: ATIVAN 1 MG PO ×5 (00:26→16:58)
[2023-12-01] MEDS: THIAMINE INJECTION 200 MG IV ×4 (00:26→23:00)
[2023-12-01 04:44] LABS: Hematocrit 35.1 % (39.0-52.0); Hemoglobin 12.2 g/dL (13.0-18.0); Mean Corp Hgb Conc. 34.8 g/dL (33.0-37.0); Mean Corpuscular Hgb 32.9 pg (27.0-31.0); Mean Corpuscular Volume 94.6 fL (80.0-94.0); Mean Platelet Volume 11.4 fL (7.4-10.4); Platelet Count 88 10^3/uL (130-400); Red Blood Cell Count 3.71 10^6/uL (4.70-6.10); Red Cell Dist. Width 14.4 % (11.5-14.5)
[2023-12-01 04:51] LABS: INR 1.89; PT 21.9 Sec (11.4-14.6)
[2023-12-01 05:08] LABS: ALT (SGPT) 57 U/L (0-50); AST (SGOT) 409 U/L (17-59); Albumin 2.9 g/dl (3.5-5.0); Alkaline Phosphatase 306 U/L (38-126); Blood Urea Nitrogen 8 mg/dl (9-20); Calcium 8.6 mg/dl (8.4-10.2); Carbon Dioxide 24 mmol/L (22-30); Chloride 98 mmol/L (98-107); Estimated Creatinine Clearance > 125 ml/min; Glucose 122 mg/dl (70-99); Phosphorus 2.8 mg/dl (2.5-4.5); Potassium 4.6 mmol/L (3.5-5.1); Sodium 134 mmol/L (135-145); Total Bilirubin 17.2 mg/dl (0.2-1.3); eGFR > 60.00
--- NOTE | 2023-12-01 06:41 | PTCARENOTE ---
Pt cooperative, drowsy. MSAS 3-6; medicated with Ativan per OCT. Tremors, increased HR, intermittent mild nausea and hallucinations present, Pt reports seeing a man working on the lights in the room; pt able to re-orient back to reality. Tele
showing NSR/ST, HR up to 160s non-sustained when on BSC. HR usually 80-110s. BM in commode. Denies pain. Jaundice present. Urine is dark in color. Tolerating IVF. Bed alarm set for safety. Call funes within reach. Pt verbalized understanding how to
use the call funes.
--- NOTE | 2023-12-01 07:50 | W.PN.HOSP.TC ---
Today's Communication/Plan
-
see plan
Assessment / Plan
Assessment / Plan
Last hospitalist admission: 10/18/23 - 10/22/23
Acute Alcohol hepatitis
Acute alcohol withdrawal
Resolved electrolyte abnormalities including hyponatremia/hypokalemia/hypocalcemia
ASSESSMENT & PLAN
Acute Alcohol hepatitis
MELD Na 23; 19.6% est 90 day mortality
Makenna DF 48.8 on admission
- admitted to IMU
- appreciate GI consult
- further work-up liver disease initiated (ceruloplasmin, A1AT, anti-LKM, ASMA, AMA, IgG4/subclassess), most likely all explained by significant alcohol use
- given elevated DF, prednisolone initiated with plan to check day 3 Lille score
- Cessation of ETOH - patient wants to go to inpatient rehab post hospitalization
Alcohol Withdrawal
Chronic Alcoholism associated with clinical depression
- MSAS protocol.
- avoid standing barbiturate taper given liver disease
- thiamine/folate
- Psych consult
- eventual inpatient rehab
Hypocalcemia
- s/p 1G overnight
Prior history of opiate abuse
- sober x 3 years; on Suboxone daily
Essential HTN
-hold lisinopril with low BP this AM
-hold parameters with metoprolol
DVT ppx: Lovenox
Code: Full
IMU
PT ordered
Anticipated Discharge: > 48 hours
Subjective/Interval History
-
Date of Service: December 01, 2023
no new complaints
no chest pain
states he is eating and drinking ok, gets confused on time of day
Objective Data
-
Labs:
Laboratory Results
12/01/23
04:25
WBC 8.0
Hgb 12.2 L
Hct 35.1 L
Plt Count 88 L
PT 21.9 H
INR 1.89
Sodium 134 L
Potassium 4.6
Chloride 98
Carbon Dioxide 24
BUN 8 L
Creatinine 0.5 L
Glucose 122 H
Calcium 8.6
Total Bilirubin 17.2 H
AST 409 H
ALT 57 H
Alkaline Phosphatase 306 H
Vital Signs:
Vital Signs
Temp Pulse Resp BP Pulse Ox
98.6 F 108 22 145/110 93
12/01/23 03:43 12/01/23 06:00 12/01/23 06:00 12/01/23 06:00 12/01/23 06:00
I&O
11/30/23 12/01/23 12/02/23
06:59 06:59 06:59
Intake Total 1700 / 1700
Output Total 600 / 600
Balance 1100 / 1100
Review of Systems
-
History Source: Patient
All other systems: Reviewed and negative
Physical Exam
-
General: Well Developed, Well Nourished, No Apparent Distress and Comfortable
HEENT: Normocephalic, Atraumatic and Moist Mucous Membranes
Respiratory: Clear to Auscultation and Non Labored Respirations; Negative Accessory Resp Muscle Use
Cardiac: Regular Rhythm and S1/S2; Negative Murmur, Rub or Gallop
GI: Soft, Nontender and Distended
Rectal: Deferred by Provider
Musculoskeletal: No Clubbing, No Cyanosis and No Edema
Skin: Warm and Jaundice; Negative Rash
Neuro: Awake, Alert, Oriented, AO x 3, Nonfocal/Grossly Intact and Other (mild tremors )
Psych: Calm
Data Reviewed
-
Diagnostic Radiology: Report Reviewed by me
Labs: Labs Reviewed by me
[2023-12-01] MEDS: SUBUTEX 8 MG SL (08:13)
[2023-12-01] MEDS: FOLVITE 1 MG PO (08:14)
[2023-12-01] MEDS: LOPRESSOR 12.5 MG PO ×2 (08:14→19:21)
[2023-12-01] MEDS: PRELONE 40 MG PO (08:14)
[2023-12-01] MEDS: NSS 1000 IV (08:22)
--- NOTE | 2023-12-01 11:33 | W.PN.GI.CBS2 ---
Today's Communication / Plan
-
MSAS protocol for active withdrawal. Continue prednisolone. Follow-up serologic workup to rule out alternative etiologies of liver disease.
Assessment / Plan
-
Toño is a 43 y.o. male with polysubstance abuse disorder on subutex with recurrent etoh pancreatitis who presents for readmission for alcohol hepatitis.
#Alcohol hepatitis c/b thrombocytopnia
-worsening Total bilirubin today, however, likely cholestatic recovery phase, which will continue to rise until we see a plateu, should improve thereafter
-Abdominal US with severe steatosis, suspect his alc hepatitis is resulting in some degree of portal HTN, despite lack of cirrhosis
-unable to obtain dopplers due to liver apeparing too dense per radiology, at some point, should have imaging of vasculature but low suspicion for PVT at this time
-INR is mildly >2 on admission, improving
-Calculated DF = 48.8 --> started on Prednisolone, day 2
-calculate early Lille score after day 3 of steroids
-given his age and history of depression, will check ceruloplasmin as well as A1AT, anti-LKM, ASMA, AMA, IgG4/subclassess for completeness but certainly his degree of alcohol use accounts for clinical presentation, labs pending
-acetaminophen and salicylate levels WNL
-IVF, *nutrition!
-signs of active withdrawal-- MSAS protocol, monitor closely given active hallucinations
-Lacks immunity to both Hepatitis A and Hepatitis B. Should be vaccinated, needs outpatient twinrix
Subjective
Subjective
Date of Service: December 01, 2023
Patient reports some mild abdominal pain this morning, had a BM with some improvement. He is actively hallucinating, stating his daughter is in the bathroom and unable to get the door opened. Receiving frequent Ativan overnight with active
withdrawal symptoms.
Objective
Data Reviewed
Laboratory Data:
Laboratory Results
12/01/23 04:25
12/01/23 04:25
Laboratory Results
PT 21.9 Sec (11.4-14.6) H 12/01/23 04:25
INR 1.89 12/01/23 04:25
Phosphorus 2.8 mg/dl (2.5-4.5) 12/01/23 04:25
Magnesium 2.0 mg/dl (1.6-2.3) 12/01/23 04:25
Total Bilirubin 17.2 mg/dl (0.2-1.3) H 12/01/23 04:25
AST 409 U/L (17-59) H 12/01/23 04:25
ALT 57 U/L (0-50) H 12/01/23 04:25
Alkaline Phosphatase 306 U/L (38-126) H 12/01/23 04:25
Lipase 69 U/L (23-300) 11/29/23 14:25
Vital Signs and I&O:
Vital Signs
Temp Pulse Resp BP Pulse Ox
98.1 F 108 22 145/110 93
12/01/23 07:55 12/01/23 06:00 12/01/23 06:00 12/01/23 06:00 12/01/23 06:00
I&O
11/30/23 12/01/23 12/02/23
06:59 06:59 06:59
Intake Total 1700 / 1700
Output Total 600 / 600
Balance 1100 / 1100
Physical Exam
Physical Exam
HEENT: Other (scleral icterus)
Cardiology: S1, S2 and Other (tachycardic)
Pulmonary: Clear
GI: Soft, Non Distended, Non Tender and Other (Decreased bowel sounds)
Extremities: No Edema
Neuro: Non Focal
+hallucinations
[2023-12-01] MEDS: ATIVAN IV (12:02)
[2023-12-01] MEDS: ATIVAN 2 MG IV ×5 (12:11→19:21)
--- NOTE | 2023-12-01 12:38 | CM ---
Patient with Dx Acute Alcohol hepatitis, alcohol withdrawal, chronic Alcoholism associated with clinical depression. Room air. Alcohol level 408. Psych consult noted. Receiving Subutex. MSAS score 12.
PT Eval 11/30; Pt is currently weak and unsteady and tremulous and hallucinating at times, goals to be updated as pt progresses.
Spoke with patient's Davida;
she is aware of patient's condition and spoke with the patient earlier today.
Davida confirms that she and the patient are both out of work and having financial issues causing food insecurity, however she confirms that she has food stamps in place and feels that will be adequate for her family. She declined the offer for
to connect her to additional food resources at [employer].
aware of patient's interest in going to [facility] at discharge.
Davida says that the patient obtains his Suboxone online from the [employer] website.
Spoke with ANISHA Raygoza/Rey Trinh; provided clinical update that patient is actively withdrawing, and has mobility issues at present. The patient needs to be independent in his mobility in order to be accepted at [facility]. They will be
submitting the referral to [facility]. Idalmis will relay to [facility] that the patient receives Suboxone online from the [employer] website.
Plan continuing to follow patient's progress [facility] PT.
Plan follow up with ANISHA for acceptance at [facility].
[2023-12-01] MEDS: NSS (PRESERVATIVE FREE) 1 ML IV ×2 (13:19→19:21)
--- NOTE | 2023-12-01 14:49 | W.PN.UPDATE ---
Addendum entered and electronically signed by Jeannie Valerio MD 12/01/23 14:54:
updated
Original Note:
Update Note
Progress Note Update
Patient with rising MSAS scores, hallucinations, elevated HR 130's. Will initiate Precedex gtt and transfer to ICU. Discussed with Psychiatry and Head Insulation Board Saw Operator.
--- NOTE | 2023-12-01 15:06 | PTCARENOTE ---
pts msas increasing this afternoon. pt medicated per protocol with ativan. he is currently awake but calm. he is oriented to being in hospital but thinks its [facility]. he is talking to his family who are not in the room. pct currently
sitting in room with patient as he has been restless at times. discussed with hospitalist.
[2023-12-01] MEDS: LR 1000 IV (15:29)
--- NOTE | 2023-12-01 15:43 | CON.INTV ---
Documented by User: Duarte Lepe MD, Resident 12/01/23 16:35
Consultation
Consultation Request
Date/Time Consultation Requested: 12/01/2023
Date/Time Consultation Performed: 12/01/2023
Requesting Provider: Dr. Jeannie Valerio
Performing Provider: Dr. Juan Diego Wheeler
Reason for Consultation: ICU monitoring
Medical History
-
Chief Complaint: Alcohol withdrawal
History of Present Illness:
History obtained from patient and medical records. This is a 43-year-old male with past medical history of alcohol use disorder, history of opiate abuse on Suboxone daily (sober x 3 years), essential hypertension, recurrent alcoholic pancreatitis,
who presented to ED for on 11/29/2023 with his spouse with concerns of abdominal pain, weakness, jaundice and confusion with hallucinations in the setting of recent alcohol binge. Patient reportedly drinks 5 24 oz alcoholic beverages daily and
recently cut back to 1 or 2. While in the ED, his calcium was 7.8, T. bili 11.3, AST 490, ALT 72, ALP 336. His abdominal ultrasound was consistent with hepatic steatosis. Patient was treated with IV fluid, Ativan, calcium gluconate, folate and
admitted to IMU for further management and is now being transferred to ICU due to concerns of alcohol withdrawal with DTs.
Past Medical History
Past Medical History: HTN and Other (Alcoholic pancreatitis, opiate use disorder,)
Past Surgical History: Other (tracheostomy)
Social History
Tobacco: Non-smoker
Alcohol: Chronic Alcoholic
Drug: Former User (History of heroin abuse on Subutex)
Personal:
Living: With Family
Family History
Family History: Other (Father with alcohol use disorder)
Allergies / Home Medications
Allergies
Allergy/AdvReac Type Severity Reaction Status Date / Time
No Known Allergies Allergy Verified 10/18/23 18:29
Home Medications
�Medication �Instructions �Recorded �Confirmed �Last Taken �Type
buprenorphine 8 mg-naloxone 2 mg 1 film sublingual DAILY opioid use 11/28/22 11/29/23 11/29/23 History
sublingual film disorder
lisinopril 20 mg tablet 20 mg PO DAILY HTN #30 tabs 10/22/23 11/29/23 11/29/23 Rx
metoprolol tartrate 25 mg tablet 12.5 mg (1/2 x 25 mg) PO BID HTN 10/22/23 11/29/23 Unknown Rx
#60 tabs
Review of Systems
-
Unable to Obtain full review of systems at this time due to: Other (Confused)
Vitals / Labs / Diagnostic Testing
Vital Signs
Temp Pulse Resp BP Pulse Ox
98.8 F 141 14 132/109 93
12/01/23 15:15 12/01/23 14:01 12/01/23 14:01 12/01/23 10:00 12/01/23 15:04
Lab Data
12/01/23 04:25
12/01/23 04:25
Laboratory Results
12/01/23
04:25
PT 21.9 H
INR 1.89
Microbiology
11/29/23 14:25 Urine Urine Culture - Final
Staphylococcus epidermidis
11/29/23 23:22 Nose MRSA Screen - Final
No Methicillin Resistant Staphylococcus aureus isolated.
Diagnostic Testing:
Physical Exam
-
HEENT: Normocephalic and Thrush (n)
Cardiovascular: S1/S2, Regular Rhythm, Calf Tenderness (n) and JVD (n)
Respiratory: Clear and Non-Labored Respirations
GI: Soft, Distended, Tender and Organomegaly (Hepatomegaly)
Neurology: Awake and Tremors (Bilateral hand tremors)
Skin: Warm
General: Comfortable
Assessment
-
ASSESSMENT:
Patient is a 43-year-old male with history of alcohol and drug use disorder, who presented to ED with symptoms of alcoholic hepatitis and alcohol withdrawal admitted to ICU for further management.
Impression:
Alcohol withdrawal with DTs
Acute alcohol hepatitis
Hypocalcemia
Resolved
Tachycardia
Hypertension
Opiate use disorder
On Suboxone (sober x 3 years)
CONDITIONS PRIOR TO ADMISSION:
Essential hypertension
Alcohol use disorder
Opiate use disorder
Alcoholic pancreatitis
Impression/Plan:
Acute alcohol withdrawal with DTs
-Presentation with confusion and hallucinations. Mild bilateral hand tremors consistent with alcohol DTs.
-M status protocol
-Psych following
Acute alcohol hepatitis
-IV fluid
-Monitor LFTs, PT and INR
-GI consult
Hypocalcemia
-Resolved
-Monitor electrolytes
Essential hypertension
-Hold lisinopril.
-Continue metoprolol
Opioid use disorder
-Continue Suboxone daily as prescribed.
Data Reviewed
-
EKG: Tracing personally visualized and interpreted, Report reviewed by me and Discussed with Physician
Radiology: Image personally visualized and interpreted, Report reviewed by me and Discussed with Physician
Ultrasound: Image personally visualized and interpreted, Report reviewed by me and Discussed with Physician
Labs: Labs reviewed by me and Discussed with Physician
Old Records: Reviewed

Documented by User: Juan Diego Wheeler MD 12/01/23 16:48
Medical History
Past Medical History
Past Medical History: Other (Alcoholic pancreatitis, opiate use disorder)
Review of Systems
-
Unable to Obtain full review of systems at this time due to: Acuity and Other (Confused, delirious)
Physical Exam
-
HEENT: Moist Mucous Membranes
Cardiovascular: Murmur (n) and Peripheral Edema (n)
GI: Other (umbilical hernia)
Neurology: Other (disoriented, confused, hallucinating)
Skin: Other (jaundice)
Assessment
-
ASSESSMENT:
Patient is a 43-year-old male with history of alcohol and drug use disorder, who presented to ED 11-28 with symptoms of alcoholic hepatitis and alcohol withdrawal. Transferred to ICU for further management and initiation of dexmedetomidine gtt
Impression:
Alcohol withdrawal with DTs
Acute alcohol hepatitis
Hypocalcemia
Resolved
Tachycardia
Hypertension
Opiate use disorder
On Suboxone
Sober x 3 y
CONDITIONS PRIOR TO ADMISSION:
Essential hypertension
Alcohol use disorder
Opiate use disorder
Alcoholic pancreatitis
Impression/Plan:
Acute alcohol withdrawal with DTs
-Presentation with confusion and hallucinations. Mild bilateral hand tremors consistent with alcohol DTs.
-MSAS protocol
-Psych following
HR control
Folic acid, thiamine
Acute alcohol hepatitis
-IV fluid: LR
-Monitor LFTs, PT and INR
Maddrey DF>32 (48.8). Contine prednisolone po D2 on 11-30
-GI consulted and following
Hypocalcemia
-Resolved
-Monitor electrolytes
Essential hypertension
-Hold lisinopril.
-Continue metoprolol
Opioid use disorder
-Continue Suboxone daily as prescribed.
DVT prophylaxis: enoxaparin
Bowel regimen
Critical care time: 35 min
--- NOTE | 2023-12-01 16:18 | W.PN.UPDATE ---
Update Note
Progress Note Update
patient seen chart reviewed. talked to nursing and to dr vazquez. patient initially was able to carry on a reasonable conversation. he asked me 'what is the best rehab' and we talked about where he had been and my recommendations...the most important
factor being his motivation and participation not necessarily which rehab. gradually however he devolved into delirium and became quite confused and i was unable to get him back to coherent conversation . the delirium had been noted earlier by
nursing and dr vazquez with whom i discussed whether to use phenobarbital. given his liver 's condition (elevated enzymes and joe high ferritin and nsg tells me his urine is jone cola colored precedex was felt to be the better option and orders are
in for tf to icu and beginning precedex. vital signs are up. he is tremulous. he has been given ativan as per msas with not much improvement. will continue to follow.
[2023-12-01] MEDS: LOVENOX 40 MG SC (16:58)
--- NOTE | 2023-12-01 17:53 | PTCARENOTE ---
pt transferred to icu per order. report given to Mattie.
[2023-12-01] MEDS: PRECEDEX 100 IV ×2 (17:55→22:38)
--- NOTE | 2023-12-01 18:13 | PTCARENOTE ---
Received pt a transfer from IMU for increased MSAS scores and needing Precedex. Pt oriented to place and self, confused conversation, at times talking to himself, very restless attempting to get oob but able to be redirected. Hr120's, EKG confirmed
ST. BP elevated 150/107. Pt urinating w/ assistance in urinal, tea colored. Precedex started at this time 0.1 mcg/kg/hr 2.3mL. Will monitor closely.
--- NOTE | 2023-12-01 20:00 | PTCARENOTE ---
Resumed care of pt attempting to climb OOB. Pt going through ETOH w/D. Reality orientation provided. Pt AOOx2, forgetful to time. Pt Hallucinating, tachycardic with HR in the 130's, tremulous, elevated BP. B/L wrist restraints applied per MD order.
Precedex titrated per protocol. Ativan administered per MSAS protocol. POX 91% on RA, 2 Lo2 NC applied, pox now 94%. Lungs dec @ bases. + bowel, round abd. Palpable peripheral pulses present. Pt with jaundiced skin and sclera. Left AC int infusing
LR at 100ml/hr as ordered. PRecedex infusing @ 0.9mcg/kg/hr. Bed alarm in place. Close monitoring maintained. Will continue to monitor.
[2023-12-01] MEDS: ATIVAN 1 MG IV (21:29)
[2023-12-02] VITALS (24 sets, daily range): BP systolic 90–121; BP diastolic 62–98; BMI 30.1
--- NOTE | 2023-12-02 | PTCARENOTE ---
Pt sleeping. HR in the 80's in NSR on the monitor. POX 93% on 2 LO2NC. Attempting to wean Precedex gtt, Ativan given per protocol. B/L wrist restraints remain in place. Pt repositioned. Knee high seq in place. heels on pillows. IVF infusing as
ordered. No other changes in assessment noted at this time. Will continue to monitor.
[2023-12-02] MEDS: ATIVAN 1 MG IV ×2 (00:06→04:42)
[2023-12-02] MEDS: NSS (PRESERVATIVE FREE) 0.5 ML IV ×2 (00:07→04:43)
[2023-12-02] MEDS: LR 1000 IV ×3 (00:08→20:47)
[2023-12-02 04:32] LABS: Hematocrit 27.3 % (39.0-52.0); Mean Corp Hgb Conc. 35.5 g/dL (33.0-37.0); Mean Corpuscular Hgb 32.8 pg (27.0-31.0); Mean Corpuscular Volume 92.2 fL (80.0-94.0); Platelet Count 82 10^3/uL (130-400); Red Blood Cell Count 2.96 10^6/uL (4.70-6.10); Red Cell Dist. Width 14.3 % (11.5-14.5); White Blood Cell Count 5.7 10^3/uL (4.8-10.8)
--- NOTE | 2023-12-02 04:36 | PTCARENOTE ---
Pt sleeping comfortably. No urine output. Bladder scanned for 716ml. Order obtained to [facility], 800ml dark tea color urine drained. New #[address] complete CHG bath provided. Face washed. Oral care complete. Pt wakes up, mumbles some words,
then back to sleep. pt repositioned. Ativan administered in attempt to continue to wean down Precedex gtt. B/L wrist restraints remain in place. NO other changes in assessment noted at this time. Will continue to monitor.
[2023-12-02 04:38] LABS: Hemoglobin 9.7 g/dL (13.0-18.0)
[2023-12-02 04:44] LABS: INR 2.15; PT 24.2 Sec (11.4-14.6)
[2023-12-02 05:39] LABS: ALT (SGPT) 52 U/L (0-50); AST (SGOT) 276 U/L (17-59); Albumin 2.3 g/dl (3.5-5.0); Alkaline Phosphatase 225 U/L (38-126); Blood Urea Nitrogen 8 mg/dl (9-20); Calcium 8.2 mg/dl (8.4-10.2); Carbon Dioxide 27 mmol/L (22-30); Chloride 102 mmol/L (98-107); Estimated Creatinine Clearance > 125 ml/min; Glucose 119 mg/dl (70-99); Magnesium 1.9 mg/dl (1.6-2.3); Phosphorus 3.4 mg/dl (2.5-4.5); Potassium 4.3 mmol/L (3.5-5.1); Sodium 131 mmol/L (135-145); Total Bilirubin 17.2 mg/dl (0.2-1.3); Total Protein 5.8 g/dl (6.3-8.2); eGFR > 60.00
--- NOTE | 2023-12-02 07:55 | W.PN.HOSP.TC ---
Today's Communication/Plan
-
wean precedex as able
MSAS
prednisolone
appreciate [employer]
eventual inpatient rehab
Assessment / Plan
Assessment / Plan
ASSESSMENT & PLAN
Acute Alcohol hepatitis
MELD Na 23; 19.6% est 90 day mortality
Selene DF 48.8 on admission
- admitted to IMU
- appreciate GI consult
- further work-up liver disease initiated (ceruloplasmin, A1AT, anti-LKM, ASMA, AMA, IgG4/subclassess), most likely all explained by significant alcohol use
- given elevated DF, prednisolone initiated with plan to check day 3 Lille score.
- Cessation of ETOH - patient wants to go to inpatient rehab post hospitalization
Alcohol Withdrawal
Chronic Alcoholism associated with clinical depression
- MSAS protocol.
- avoid standing barbiturate taper given liver disease
- thiamine/folate
- Psych consult appreciated
- 11/30 - worsening withdrawal requiring transfer to ICU and initiation of Precedex gtt
- eventual inpatient rehab
- Mag, Phos, Ca stable
Prior history of opiate abuse
- sober x 3 years; on Suboxone daily
Essential HTN
-hold lisinopril with low BP this AM
-hold parameters with metoprolol
DVT ppx: Lovenox
Code: Full
IMU
PT ordered
Anticipated Discharge: > 48 hours
Subjective/Interval History
-
Date of Service: December 02, 2023
sedated
Objective Data
-
Labs:
Laboratory Results
12/02/23 12/02/23
04:12 11:00
WBC 5.7
Hgb 9.7 L D Pending
Hct 27.3 L
Plt Count 82 L
PT 24.2 H
INR 2.15
Sodium 131 L
Potassium 4.3
Chloride 102
Carbon Dioxide 27
BUN 8 L
Creatinine 0.4 L
Glucose 119 H
Calcium 8.2 L
Total Bilirubin 17.2 H
AST 276 H
ALT 52 H
Alkaline Phosphatase 225 H
Vital Signs:
Vital Signs
Temp Pulse Resp BP Pulse Ox
97.0 F 71 26 113/85 93
12/02/23 03:35 12/02/23 06:00 12/02/23 06:00 12/02/23 06:00 12/02/23 06:00
I&O
12/01/23 12/02/23 12/03/23
06:59 06:59 06:59
Intake Total 1700 / 1700 1348.8 / 1348.8
Output Total 600 / 600 1900 / 1900
Balance 1100 / 1100 -551.2 / -551.2
Review of Systems
-
History Source: Patient
All other systems: Reviewed and negative
Physical Exam
-
General: Well Developed, Well Nourished, No Apparent Distress and Comfortable
HEENT: Normocephalic, Atraumatic and Moist Mucous Membranes
Respiratory: Clear to Auscultation and Non Labored Respirations; Negative Accessory Resp Muscle Use
Cardiac: Regular Rhythm and S1/S2; Negative Murmur, Rub or Gallop
GI: Soft, Nontender and Distended
Rectal: Deferred by Provider
Musculoskeletal: No Clubbing, No Cyanosis and No Edema
Skin: Warm and Jaundice; Negative Rash
Neuro: Awake, Alert, Oriented, AO x 3, Nonfocal/Grossly Intact and Other (mild tremors )
Psych: Calm
Data Reviewed
-
Diagnostic Radiology: Report Reviewed by me
Labs: Labs Reviewed by me
--- NOTE | 2023-12-02 08:09 | PTOTSP ---
Reviewed chart and noted pt transferred to ICU and PT orders were not continued upon transfer. Will need new order for PT when he is stable to resume PT activity.
--- NOTE | 2023-12-02 08:17 | W.PN.INTV ---
Documented by User: Duarte Lepe MD, Resident 12/02/23 10:21
Today's Communication / Plan
Recommendations
keep on MSAS protocol
Precedex discontinued 12/01
Monitor electrolytes
Aspiration precautions
IV fluid-LR
Monitor LFTs, PT/INR
Assessment
-
ASSESSMENT:
Patient is a 43-year-old male with history of alcohol and drug use disorder, who presented to ED 11-28 with symptoms of alcoholic hepatitis and alcohol withdrawal. Transferred to ICU for further management and initiation of dexmedetomidine gtt
Impression:
Alcohol withdrawal with DTs
Acute alcohol hepatitis
Hypocalcemia
Tachycardia
Resolved
Hypertension
Resolved
Opiate use disorder
On Suboxone
Sober x 3 y
CONDITIONS PRIOR TO ADMISSION:
Essential hypertension
Alcohol use disorder
Opiate use disorder
Alcoholic pancreatitis
Impression/Plan:
Acute alcohol withdrawal with DTs
-Presentation with confusion and hallucinations. Mild bilateral hand tremors consistent with alcohol DTs.
-MSAS protocol
-Psych following
-Folic acid, thiamine
-Precedex discontinued
-Bladder scan.
-Aspiration precautions
Acute alcohol hepatitis
-IV fluid: LR
-Monitor LFTs, PT and INR
-Selene DF>61 (48.8 on admission), Prednisolone discontinued by GI.
-GI consulted and following.
Hypocalcemia
-Mild, continue to follow
-Monitor electrolytes
Essential hypertension
-Stable
-Hold lisinopril.
-Continue metoprolol
Opioid use disorder
-Continue Suboxone daily as prescribed.
DVT prophylaxis: enoxaparin
Bowel regimen
Subjective Dataa
Subjective Data
Date of Service:
Date of Service: December 02, 2023
Chief Complaint: Supervisor Phosphatic Fertilizer Follow Up
Subjective:
Overnight, patient MSAS score continue to increase with tachycardia, DTs, and elevated BP. Multiple doses of Ativan via administered per MSAS protocol and Precedex titrated per protocol. Patient reported attempting to get OOB and soft wrist
restraints within place. Urine output is decreased, bladder scan with 760 mL, straight cath yielded 800 mL dark tea colored urine.
Review of Systems
General: Fever (n) and Chills (n)
HEENT: Dysphagia (n) and Thrush (n)
Cardiopulmonary: Dyspnea (n), Cough (n) and Wheezing (n)
GI: Abdominal Pain and Vomiting (n)
Genitourinary: Gibbons
Objective Data
Data Reviewed
Vital Signs / I&O / Oxygen:
Vital Signs
Temp Pulse Resp BP Pulse Ox
97.0 F 71 26 113/85 93
12/02/23 03:35 12/02/23 06:00 12/02/23 06:00 12/02/23 06:00 12/02/23 06:00
Intake and Output
12/01/23 12/02/23 12/03/23
06:59 06:59 06:59
Intake Total 1700 / 1700 1348.8 / 1348.8
Output Total 600 / 600 1900 / 1900
Balance 1100 / 1100 -551.2 / -551.2
SaO2 93
Nasal Cannula flow liters per 2
minute
Physical Exam
General: Comfortable
HEENT: Normocephalic, Moist Mucous Membranes and Thrush (n)
Cardiovascular: S1-S2, Regular Rhythm, Murmur (n) and JVD (n)
Respiratory: Clear, Wheeze (n), Crackles (n), Non-Labored Respirations and Stridor (n)
GI: Soft, Distended, Tender and Normal Bowel Sounds
Neurology: Awake and No Motor Deficits
Skin: Warm
Labs/Micro/Reports
Lab Data
12/02/23 04:12
Laboratory Results
12/02/23
04:12
PT 24.2 H
INR 2.15
Microbiology
11/29/23 14:25 Urine Urine Culture - Final
Staphylococcus epidermidis
11/29/23 23:22 Nose MRSA Screen - Final
No Methicillin Resistant Staphylococcus aureus isolated.

Documented by User: Juan Diego Wheeler MD 12/02/23 11:01
Today's Communication / Plan
Recommendations
keep on MSAS protocol
Precedex discontinued 12/01, follow response, resume if needed
Monitor electrolytes
Aspiration precautions
IV fluid-LR
Monitor LFTs, PT/INR
Assessment
-
ASSESSMENT:
Patient is a 43-year-old male with history of alcohol and drug use disorder, who presented to ED - with symptoms of alcoholic hepatitis and alcohol withdrawal. Transferred to ICU for further management and initiation of dexmedetomidine gtt
Impression:
Alcohol withdrawal with DTs
Acute alcohol hepatitis
Hypocalcemia
Tachycardia
Resolved
Hypertension
Resolved
Opiate use disorder
On Suboxone
Sober x 3 y
CONDITIONS PRIOR TO ADMISSION:
Essential hypertension
Alcohol use disorder
Opiate use disorder
Alcoholic pancreatitis
Impression/Plan:
Acute alcohol withdrawal with DTs
-Presentation with confusion and hallucinations. Mild bilateral hand tremors consistent with alcohol DTs.
-MSAS protocol
-Psych following: patient has agreed to enroll in inpatient rehab
-Folic acid, thiamine
-Precedex discontinued, following response, resume if needed
-Bladder scan, large residual, straight cath today.
-Aspiration precautions
Acute alcohol hepatitis
-IV fluid: LR
-Monitor LFTs, PT and INR
-Maddrey DF>61 (48.8 on admission), Prednisolone discontinued by GI on 12-01.
-GI consulted and following.
Hypocalcemia
-Mild, continue to follow
-Monitor electrolytes
Essential hypertension
-Stable
-Hold lisinopril.
-Continue metoprolol
Opioid use disorder
-Continue buprenorphine (already on outpatient buprenorphine/naloxone)
DVT prophylaxis: enoxaparin
Bowel regimen
Critical care time: 35 min
ATTENDING PHYSICIAN ATTESTATION:
(Follow-up Visit:)
I personally saw and evaluated the patient along with the Resident Dr Lepe.
Discussed with Resident and discussed in rounds with MDT.
I agree with Resident�s findings and plan as documented in the resident�s note, which was edited by myself.
Objective Data
Physical Exam
Cardiovascular: Peripheral Edema (n)
Neurology: Oriented
--- NOTE | 2023-12-02 09:02 | PTCARENOTE ---
Received pt sleeping in bed, sedated on Precedex 0.3mcg/kg/hr, decreased to 0.1 at 0800. Pt difficult to arouse initially, now opens eyes to verbal stimuli, states name and that he is at [facility]. Pt falls back to sleep when undisturbed.
HR 70s NSR, BP wnl. Breakfast ordered. Nathan wrist restraints currently in place, will reassess. Ab round, obese, + BS. Condom cath in place, pt needing straight cath last evening. Full assessment as documented. Will continue to monitor.
--- NOTE | 2023-12-02 09:14 | W.PN.GI.CBS2 ---
Today's Communication / Plan
-
Transferred to ICU for precedex gtt. Continue Prednisolone. Plan to calculate Lille score with tomorrow labs.
Assessment / Plan
-
Toño is a 43 y.o. male with polysubstance abuse disorder on subutex with recurrent etoh pancreatitis who presents for readmission for alcohol hepatitis. His hospital course has been complicated by
worsening withdrawal symptoms with hallucinations, requiring transfer to ICU for initiation of precedex gtt. Prednisolone started on 11/29 for treatment of alcohol hepatitis.
#Alcohol hepatitis c/b thrombocytopnia and coagulopathy
-improving transaminses and alk phos, Tbili unchanged from yesterday-- hopefully representing plateau, and should start to see improvement
-Abdominal US with severe steatosis, suspect his alc hepatitis is resulting in some degree of portal HTN, despite lack of cirrhosis
-unable to obtain dopplers due to liver appearing too dense per radiology, at some point, should have imaging of vasculature but low suspicion for PVT at this time
-INR is mildly elevated. Suspect a nutritional component. Will trial Vit. K, need to monitor closely for SNF
-Calculated DF = 48.8 --> started on Prednisolone, day 3; plan to calculate early Lille score with tomorrows labs (following 3 doses)
-given his age and history of depression, will check ceruloplasmin as well as A1AT, anti-LKM, ASMA, AMA, IgG4/subclasses for completeness but certainly his degree of alcohol use accounts for clinical presentation, labs pending
-acetaminophen and salicylate levels WNL
-IVF, *nutrition!
-signs of active withdrawal-- MSAS protocol, transferred to ICU for precedex gtt
-Lacks immunity to both Hepatitis A and Hepatitis B. Should be vaccinated, needs outpatient twinrix
Normocytic anemia
-Hemoglobin 12.9 on admission, 9.7 this morning down from 12.2 yesterday
-no signs of GI bleeding; all cell counts decreased on AM labs
-Monitor closely; despite lack of cirrhosis, with severe alc hep, can see complications of severe portal HTN
-will empirically start on once daily PPI for cytoprotection in setting of steroids
Subjective
Subjective
Date of Service: December 02, 2023
Patient with worsening withdrawal symptoms +DTs, transferred to ICU overnight for precedex gtt. Transaminases improving, total bilirubin plateaued. Today is day 3 of steroids.
Objective
Data Reviewed
Laboratory Data:
Laboratory Results
12/02/23 04:12
Laboratory Results
PT 24.2 Sec (11.4-14.6) H 12/02/23 04:12
INR 2.15 12/02/23 04:12
Phosphorus 3.4 mg/dl (2.5-4.5) 12/02/23 04:12
Magnesium 1.9 mg/dl (1.6-2.3) 12/02/23 04:12
Total Bilirubin 17.2 mg/dl (0.2-1.3) H 12/02/23 04:12
AST 276 U/L (17-59) H 12/02/23 04:12
ALT 52 U/L (0-50) H 12/02/23 04:12
Alkaline Phosphatase 225 U/L (38-126) H 12/02/23 04:12
Lipase 69 U/L (23-300) 11/29/23 14:25
Vital Signs and I&O:
Vital Signs
Temp Pulse Resp BP Pulse Ox
97.0 F 71 22 109/83 94
12/02/23 03:35 12/02/23 08:00 12/02/23 08:00 12/02/23 08:00 12/02/23 08:46
I&O
12/01/23 12/02/23 12/03/23
06:59 06:59 06:59
Intake Total 1700 / 1700 1348.8 / 1455.6 209.1 / 209.1
Output Total 600 / 600 1900 / 1900
Balance 1100 / 1100 -551.2 / -444.4 209.1 / 209.1
Physical Exam
Physical Exam
HEENT: Moist mucous membranes and Other (scleral icterus)
Cardiology: Normal Sinus Rhythm, S1 and S2
Pulmonary: Clear
GI: Soft, Non Distended and Non Tender
Extremities: No Edema
Neuro: Non Focal
Sedated
[2023-12-02] MEDS: THIAMINE INJECTION 200 MG IV ×2 (09:27→16:05)
[2023-12-02] MEDS: FOLVITE 1 MG PO (09:33)
[2023-12-02] MEDS: PRELONE 40 MG PO (09:35)
[2023-12-02] MEDS: SUBUTEX 8 MG SL (09:35)
[2023-12-02] MEDS: ATIVAN 1 MG PO ×2 (09:40→12:32)
[2023-12-02] MEDS: LOPRESSOR PO ×2 (09:47→19:37)
[2023-12-02] MEDS: PROTONIX IV 40 MG IV (10:23)
[2023-12-02] MEDS: NSS (PRESERVATIVE FREE) 10 ML IV (10:23)
[2023-12-02] MEDS: AQUAMEPHYTON 50.5 MG IV (10:23)
--- NOTE | 2023-12-02 11:01 | W.PN.INTV ---
Today's Communication / Plan
Recommendations
MSAS protocol
Dexmedetomidine
IVFs
Asp precs
Assessment
-
ASSESSMENT:
Patient is a 43-year-old male with history of alcohol and drug use disorder, who presented to ED 11-28 with symptoms of alcoholic hepatitis and alcohol withdrawal. Transferred to ICU for further management and initiation of dexmedetomidine gtt
Impression:
Alcohol withdrawal with DTs
Acute alcohol hepatitis
Hypocalcemia
Tachycardia
Resolved
Hypertension
Resolved
Opiate use disorder
On Suboxone
Sober x 3 y
CONDITIONS PRIOR TO ADMISSION:
Essential hypertension
Alcohol use disorder
Opiate use disorder
Alcoholic pancreatitis
Impression/Plan:
Acute alcohol withdrawal with DTs
-Presentation with confusion and hallucinations. Mild bilateral hand tremors consistent with alcohol DTs.
-MSAS protocol
-Psych following: patient has agreed to enroll in inpatient rehab
-Folic acid, thiamine
-Precedex discontinued, following response, resume if needed
-Bladder scan, large residual, straight cath today.
-Aspiration precautions
Acute alcohol hepatitis
-IV fluid: LR
-Monitor LFTs, PT and INR
-Maddrey DF>61 (48.8 on admission), Prednisolone discontinued by GI on 12-01.
-GI consulted and following.
Hypocalcemia
-Mild, continue to follow
-Monitor electrolytes
Essential hypertension
-Stable
-Hold lisinopril.
-Continue metoprolol
Opioid use disorder
-Continue buprenorphine (already on outpatient buprenorphine/naloxone)
DVT prophylaxis: enoxaparin
Bowel regimen
Critical care time: 35 min
ATTENDING PHYSICIAN ATTESTATION:
(Follow-up Visit:)
I personally saw and evaluated the patient along with the Resident Dr Lepe.
Discussed with Resident and discussed in rounds with MDT.
I agree with Resident�s findings and plan as documented in the resident�s note, which was edited by myself.
Subjective Dataa
Subjective Data
Date of Service:
Date of Service: December 02, 2023
Chief Complaint: Facing Machine Operator Follow Up
Objective Data
Data Reviewed
Vital Signs / I&O / Oxygen:
Vital Signs
Temp Pulse Resp BP Pulse Ox
97.7 F 71 22 106/80 94
12/02/23 09:00 12/02/23 08:00 12/02/23 08:00 12/02/23 09:47 12/02/23 08:46
Intake and Output
12/01/23 12/02/23 12/03/23
06:59 06:59 06:59
Intake Total 1700 / 1700 1348.8 / 1455.6 531.4 / 531.4
Output Total 600 / 600 1900 / 1900
Balance 1100 / 1100 -551.2 / -444.4 531.4 / 531.4
SaO2 94
Nasal Cannula flow liters per 2
minute
Physical Exam
General: Comfortable
HEENT: Normocephalic, Moist Mucous Membranes and Thrush (n)
Cardiovascular: S1-S2, Regular Rhythm, Murmur (n), JVD (n) and Peripheral Edema (n)
Respiratory: Clear, Wheeze (n), Crackles (n), Non-Labored Respirations and Stridor (n)
GI: Soft, Distended, Tender and Normal Bowel Sounds
Neurology: Awake, Oriented and No Motor Deficits
Skin: Warm
Labs/Micro/Reports
Lab Data
12/02/23 04:12
Laboratory Results
12/02/23
04:12
PT 24.2 H
INR 2.15
Microbiology
11/29/23 14:25 Urine Urine Culture - Final
Staphylococcus epidermidis
11/29/23 23:22 Nose MRSA Screen - Final
No Methicillin Resistant Staphylococcus aureus isolated.
[2023-12-02 11:12] LABS: Hemoglobin 10.1 g/dL (13.0-18.0)
--- NOTE | 2023-12-02 12:00 | PTCARENOTE ---
Pt's Precedex gtt off since 10AM, wakes easily, AOx3, still calls out at times looking for his family w/ some confusion, but is easily reoriented. Pt calm and cooperative. PO Ativan given when warranted, see MAR and MSAS documentation. VSS. Will
continue to monitor.
--- NOTE | 2023-12-02 13:36 | CM ---
CM following re: discharge planning.
Discussed in rounds, reviewed pt's chart, met with pt.
Pt is able top make a clear conversation today. pt stated he lives with spouse and 3 children: 3, 6, and 10 year of age in a [address], does not work, receives medical assistance and food stamps. Pt admitted to significant h/o alcohol abuse. Pt reports he
has been drinking on and off for the past 15-20 years, the choice of drink is beer and pt did not tell how much he drinks but stated daily.
Pt expressed his desire to go to inpatient D&A rehab and his preference is [facility]. Pt stated he was at [facility] D&A rehab recently and left. [facility] following.
D/C plan: Inpatient D&A rehab, preferred [facility]. [facility] following.
CM will follow with discharge plan updates as hospitalization progresses
--- NOTE | 2023-12-02 13:39 | W.PN.UPDATE ---
Update Note
Progress Note Update
patient seen chart reviewed. spoke with nursing who reports much improvement over the past 24 hours. [facility]. he has had four ativan prns so far today. when i saw him he was able to talk w me about his
addiction and what had transpired in the 24 hours although he was a little groggy. working to impress upon him the dire nature of his situation if he resumes drinking. he said 'don't say downhill just tell me the truth if i drink again i'm gonna
' . pointed out to him that not infrequently as the patient starts to recover from withdrawal they 'forget' what they have been through and develop a false sense of confidence in their ability to remain sober and refuse rehab. reinforce each
time i see him the need for in pt rehab if he is to succeed in maintaining a sober lifestyle. did not make any change in psych meds. will continue to follow
[2023-12-02 16:05] LABS: ANA, IgG Reflex to HEp-2 None Detected (None Detected)
--- NOTE | 2023-12-02 16:29 | PTCARENOTE ---
RN assumed care for outgoing RN, pt oob in chair, resting, dinner ordered, 2Lnc, LR @100ml/hr, off percedex, remain calm and stable, PRN Ativan as needed.
[2023-12-02] MEDS: LOVENOX 40 MG SC (17:38)
[2023-12-02 19:07] LABS: Mitochondrial M2 Ab, IgG 57.9 Units (0.0-24.9)
[2023-12-02 19:49] LABS: IgG Subclass 1 1196 mg/dL (240-1118); IgG Subclass 2 432 mg/dL (124-549); IgG Subclass 3 52 mg/dL (21-134); IgG Subclass 4 39 mg/dL (1-123)
[2023-12-02 20:16] LABS: Ceruloplasmin 31 mg/dL (15-30)
--- NOTE | 2023-12-02 21:09 | PTCARENOTE ---
Patient received OOB in chair asleep, wakes easily, tremulous. Patient denies any needs at this time. Remains on 2L via NC. Jaundice skin/sclera. Expresses no need to void.
[2023-12-02 23:04] LABS: LKM-1 Ab (IgG) 0.9 U (0.0-24.9)
[2023-12-03] VITALS (25 sets, daily range): BP systolic 96–129; BP diastolic 62–101; BMI 31.2
--- NOTE | 2023-12-03 01:36 | PTCARENOTE ---
Patient assist to bed, patient very unsteady. Denies hallucinations, tremors are slight. Patient remains alert and oriented but drowsy.
[2023-12-03 03:19] LABS: Hematocrit 30.3 % (39.0-52.0); Hemoglobin 10.7 g/dL (13.0-18.0); Mean Corp Hgb Conc. 35.3 g/dL (33.0-37.0); Mean Corpuscular Hgb 33.1 pg (27.0-31.0); Mean Corpuscular Volume 93.8 fL (80.0-94.0); Mean Platelet Volume 10.8 fL (7.4-10.4); Platelet Count 85 10^3/uL (130-400); Red Blood Cell Count 3.23 10^6/uL (4.70-6.10); Red Cell Dist. Width 14.2 % (11.5-14.5); White Blood Cell Count 5.9 10^3/uL (4.8-10.8)
[2023-12-03 03:31] LABS: INR 2.14; PT 23.8 Sec (11.4-14.6)
[2023-12-03 03:58] LABS: ALT (SGPT) 53 U/L (0-50); AST (SGOT) 248 U/L (17-59); Albumin 2.3 g/dl (3.5-5.0); Alkaline Phosphatase 216 U/L (38-126); Blood Urea Nitrogen 11 mg/dl (9-20); Calcium 8.4 mg/dl (8.4-10.2); Carbon Dioxide 28 mmol/L (22-30); Chloride 101 mmol/L (98-107); Estimated Creatinine Clearance > 125 ml/min; Glucose 133 mg/dl (70-99); Potassium 4.3 mmol/L (3.5-5.1); Sodium 130 mmol/L (135-145); Total Bilirubin 18.5 mg/dl (0.2-1.3); Total Protein 5.9 g/dl (6.3-8.2); eGFR > 60.00
--- NOTE | 2023-12-03 07:37 | W.PN.INTV ---
Addendum entered and electronically signed by Juan Diego Wheeler MD 12/03/23 10:14:
CXR 12-01 with small R PF, likely due to etoh liver disease, resp guaman not symptomatic. Rec follow up next week and, please let us know if need reconsult
TT Dr Valerio
D/w RN
Original Note:
Today's Communication / Plan
Recommendations
MSAS
IMU
Reconsult prn
Assessment
-
ASSESSMENT:
Patient is a 43-year-old male with history of alcohol and drug use disorder, who presented to ED 11-28 with symptoms of alcoholic hepatitis and alcohol withdrawal. Transferred to ICU for further management and initiation of dexmedetomidine gtt
Impression:
Alcohol withdrawal with DTs
Acute alcohol hepatitis
Hypocalcemia
Tachycardia
Resolved
Hypertension
Resolved
Opiate use disorder
On Suboxone
Sober x 3 y
CONDITIONS PRIOR TO ADMISSION:
Essential hypertension
Alcohol use disorder
Opiate use disorder
Alcoholic pancreatitis
Impression/Plan:
Acute alcohol withdrawal with DTs
-Presentation with confusion and hallucinations. Mild bilateral hand tremors consistent with alcohol DTs.
-MSAS protocol
-Psych following: patient has agreed to enroll in inpatient rehab
-Folic acid, thiamine
-Precedex discontinued, following response
-Aspiration precautions
Acute alcohol hepatitis
-IV fluid: LR
-Monitor LFTs, PT and INR
-Maddrey DF>61 (48.8 on admission), Prednisolone discontinued by GI on 12-01.
-GI consulted and following.
Hypocalcemia
-Mild, continue to follow
-Monitor electrolytes
Essential hypertension
-Stable
-Hold lisinopril.
-Continue metoprolol
Opioid use disorder
-Continue buprenorphine (already on outpatient buprenorphine/naloxone)
DVT prophylaxis: enoxaparin
Bowel regimen
Agree with transfer out of ICU to IMU status
Reconsult as needed
Subjective Dataa
Subjective Data
Date of Service:
Date of Service: December 03, 2023
Chief Complaint: Spine Supervisor Follow Up
Subjective:
No major events reported overnight
Hospital medicine yesterday
Much more awake and cooperative
No difficulties with oral intake
Review of Systems
General: Fever (n), Sweats (n) and Chills
Cardiopulmonary: Dyspnea (n), Cough (n) and Chest Pain (n)
GI: Abdominal Pain, Nausea and Vomiting (n)
Neuro: Weakness
Objective Data
Data Reviewed
Vital Signs / I&O / Oxygen:
Vital Signs
Temp Pulse Resp BP Pulse Ox
98.1 F 74 11 111/74 92
12/03/23 03:31 12/03/23 05:00 12/03/23 05:00 12/03/23 05:00 12/03/23 05:00
Intake and Output
12/02/23 12/03/23 12/04/23
06:59 06:59 06:59
Intake Total 1348.8 / 1455.6 3181.4 / 3181.4
Output Total 1900 / 1900 625 / 625
Balance -551.2 / -444.4 2556.4 / 2556.4
SaO2 92
Nasal Cannula flow liters per 2
minute
Physical Exam
General: Comfortable
HEENT: Normocephalic, Moist Mucous Membranes and Thrush (n)
Cardiovascular: S1-S2, Regular Rhythm, Murmur (n), JVD (n) and Peripheral Edema (n)
Respiratory: Clear, Wheeze (n), Crackles (n), Non-Labored Respirations and Stridor (n)
GI: Soft, Distended, Tender and Normal Bowel Sounds
Neurology: Awake, Oriented and No Motor Deficits
Skin: Warm and Jaundice
Labs/Micro/Reports
Lab Data
12/03/23 02:51
12/03/23 02:51
Laboratory Results
12/03/23
02:51
PT 23.8 H
INR 2.14
Microbiology
11/29/23 14:25 Urine Urine Culture - Final
Staphylococcus epidermidis
11/29/23 23:22 Nose MRSA Screen - Final
No Methicillin Resistant Staphylococcus aureus isolated.
[2023-12-03] MEDS: NSS (PRESERVATIVE FREE) 10 ML IV (07:52)
[2023-12-03] MEDS: PROTONIX IV 40 MG IV (07:52)
[2023-12-03] MEDS: VITAMIN B1 100 MG PO ×2 (07:53→19:49)
[2023-12-03] MEDS: SUBUTEX 8 MG SL (07:53)
[2023-12-03] MEDS: LOPRESSOR PO (07:53)
[2023-12-03] MEDS: FOLVITE 1 MG PO (07:53)
--- NOTE | 2023-12-03 07:58 | W.PN.HOSP.TC ---
Today's Communication/Plan
-
daily BMP and INR
off precedex
OK to transfer to IMU
PT/OT
Assessment / Plan
Assessment / Plan
ASSESSMENT & PLAN
Acute Alcohol hepatitis
MELD Na 23; 19.6% est 90 day mortality
Selene DF 48.8 on admission
- admitted to IMU
- appreciate GI consult
- further work-up liver disease initiated (ceruloplasmin, A1AT, anti-LKM, ASMA, AMA, IgG4/subclassess), most likely all explained by significant alcohol use
- given elevated DF, prednisolone initiated
- Cessation of ETOH - patient wants to go to inpatient rehab post hospitalization
- s/p vitamin K
Alcohol Withdrawal
Chronic Alcoholism associated with clinical depression
- MSAS protocol.
- avoid standing barbiturate taper given liver disease
- thiamine/folate
- Psych consult appreciated
- 11/30 - worsening withdrawal requiring transfer to ICU and initiation of Precedex gtt now off
- eventual inpatient rehab
- Mag, Phos, Ca stable
Prior history of opiate abuse
- sober x 3 years; on Suboxone daily
Essential HTN
-hold lisinopril with low BP this AM
-hold parameters with metoprolol
DVT ppx: Lovenox
Code: Full
IMU
PT ordered
Anticipated Discharge: > 48 hours
Subjective/Interval History
-
Date of Service: December 03, 2023
eating and drinking
Objective Data
-
Labs:
Laboratory Results
12/03/23
02:51
WBC 5.9
Hgb 10.7 L
Hct 30.3 L
Plt Count 85 L
PT 23.8 H
INR 2.14
Sodium 130 L
Potassium 4.3
Chloride 101
Carbon Dioxide 28
BUN 11
Creatinine 0.5 L
Glucose 133 H
Calcium 8.4
Total Bilirubin 18.5 H*
AST 248 H
ALT 53 H
Alkaline Phosphatase 216 H
Vital Signs:
Vital Signs
Temp Pulse Resp BP Pulse Ox
98.6 F 74 11 111/74 92
12/03/23 07:37 12/03/23 05:00 12/03/23 05:00 12/03/23 05:00 12/03/23 05:00
I&O
12/02/23 12/03/23 12/04/23
06:59 06:59 06:59
Intake Total 1348.8 / 1455.6 3181.4 / 3181.4
Output Total 1900 / 1900 625 / 625
Balance -551.2 / -444.4 2556.4 / 2556.4
Review of Systems
-
History Source: Patient
All other systems: Reviewed and negative
Physical Exam
-
General: Well Developed, Well Nourished, No Apparent Distress and Comfortable
HEENT: Normocephalic, Atraumatic and Moist Mucous Membranes
Respiratory: Clear to Auscultation and Non Labored Respirations; Negative Accessory Resp Muscle Use
Cardiac: Regular Rhythm and S1/S2; Negative Murmur, Rub or Gallop
GI: Soft, Nontender and Distended
Rectal: Deferred by Provider
Musculoskeletal: No Clubbing, No Cyanosis and No Edema
Skin: Warm and Jaundice; Negative Rash
Neuro: Awake, Alert, Oriented, AO x 3, Nonfocal/Grossly Intact and Other (mild tremors )
Psych: Calm
Data Reviewed
-
Diagnostic Radiology: Report Reviewed by me
Labs: Labs Reviewed by me
--- NOTE | 2023-12-03 08:00 | PTCARENOTE ---
Patient received from wood science professor, presents as assessed. Patient is alert and oriented x4, slow to respond. NSR on the monitor, edema noted, appears volume overloaded on exam. Maintains on 2lnc, diminished in the right base. Occasionally incontinent
of bowel and bladder. Skin and sclera jaundice. Patient offers no complaints at this time.
[2023-12-03] MEDS: MEPHYTON 5 MG PO (08:02)
[2023-12-03] MEDS: LR IV (08:06)
--- NOTE | 2023-12-03 13:40 | W.PN.GI.CBS2 ---
Today's Communication / Plan
-
US abdomen with dopplers also r/o ascites
continue prednisolone
Assessment / Plan
-
Toño is a 43 y.o. male with polysubstance abuse disorder on subutex with recurrent etoh pancreatitis who presents for readmission for alcohol hepatitis. His hospital course has been complicated by
worsening withdrawal symptoms with hallucinations, requiring transfer to ICU for initiation of precedex gtt. Prednisolone started on 11/29 for treatment of alcohol hepatitis.
#Alcohol hepatitis c/b thrombocytopnia and coagulopathy
-improving transaminases, bili increasing , continue to trend
-Abdominal US with severe steatosis, suspect his alc hepatitis is resulting in some degree of portal HTN, despite lack of cirrhosis
-unable to obtain dopplers due to liver appearing too dense per radiology, at some point, should have imaging of vasculature but low suspicion for PVT at this time
-INR is mildly elevated. Suspect a nutritional component. Will trial Vit. K, need to monitor closely for PATRICIA
-Calculated DF = 48.8 --> started on Prednisolone 11/29; plan to calculate Lille score day 7 (12/05) to assess whether to continue prednisolone or discontinue if no response
-given his age and history of depression, will check ceruloplasmin as well as A1AT, anti-LKM, ASMA, AMA, IgG4/subclasses for completeness but certainly his degree of alcohol use accounts for clinical presentation, labs pending
-acetaminophen and salicylate levels WNL
-Thiamine, folic acid
-off precedex gtt, withdrawal sx better
-Lacks immunity to both Hepatitis A and Hepatitis B. Should be vaccinated, needs outpatient twinrix
-Will repeat US may have ascites now abd more distended, also has pleural effusion
Normocytic anemia
-no signs of GI bleeding;
-started on once daily PPI for cytoprotection in setting of steroids
Subjective
Subjective
Date of Service: December 03, 2023
Patient is more awake and less tremulous. Off Precedex. Denies abdominal pain, tolerating diet
Objective
Data Reviewed
Laboratory Data:
Laboratory Results
12/03/23 02:51
12/03/23 02:51
Laboratory Results
PT 23.8 Sec (11.4-14.6) H 12/03/23 02:51
INR 2.14 12/03/23 02:51
Phosphorus 3.4 mg/dl (2.5-4.5) 12/02/23 04:12
Magnesium 1.9 mg/dl (1.6-2.3) 12/02/23 04:12
Total Bilirubin 18.5 mg/dl (0.2-1.3) H* 12/03/23 02:51
AST 248 U/L (17-59) H 12/03/23 02:51
ALT 53 U/L (0-50) H 12/03/23 02:51
Alkaline Phosphatase 216 U/L (38-126) H 12/03/23 02:51
Lipase 69 U/L (23-300) 11/29/23 14:25
Vital Signs and I&O:
Vital Signs
Temp Pulse Resp BP Pulse Ox
97 F 86 13 103/69 93
12/03/23 11:30 12/03/23 12:00 12/03/23 12:00 12/03/23 12:00 12/03/23 12:00
I&O
12/02/23 12/03/23 12/04/23
06:59 06:59 06:59
Intake Total 1348.8 / 1455.6 3181.4 / 3281.4 340 / 340
Output Total 1900 / 1900 625 / 625
Balance -551.2 / -444.4 2556.4 / 2656.4 340 / 340
Physical Exam
Physical Exam
Cardiology: Normal Sinus Rhythm and Murmur
Pulmonary: Clear and Other (Decreased breath sounds at bases)
GI: Soft, Distended, Non Tender, Normal Bowel Sounds and Other (Small umbilical hernia)
[2023-12-03] MEDS: TUMS 1 TABLET PO (14:11)
[2023-12-03] MEDS: PRELONE 40 MG PO (14:11)
[2023-12-03] MEDS: LOPRESSOR 12.5 MG PO (19:48)
[2023-12-03 22:14] LABS: F-Actin Antibody IgG 6 Units (0-19)
[2023-12-04] VITALS (13 sets, daily range): BP systolic 107–153; BP diastolic 73–123
[2023-12-04 04:09] LABS: Hematocrit 30.3 % (39.0-52.0); Hemoglobin 10.5 g/dL (13.0-18.0); Mean Corp Hgb Conc. 34.7 g/dL (33.0-37.0); Mean Corpuscular Hgb 32.6 pg (27.0-31.0); Mean Corpuscular Volume 94.1 fL (80.0-94.0); Mean Platelet Volume 11.9 fL (7.4-10.4); Platelet Count 117 10^3/uL (130-400); Red Blood Cell Count 3.22 10^6/uL (4.70-6.10); Red Cell Dist. Width 14.6 % (11.5-14.5); White Blood Cell Count 7.3 10^3/uL (4.8-10.8)
[2023-12-04 04:20] LABS: INR 1.91; PT 21.7 Sec (11.4-14.6)
[2023-12-04 04:26] LABS: ALT (SGPT) 53 U/L (0-50); AST (SGOT) 253 U/L (17-59); Albumin 2.6 g/dl (3.5-5.0); Alkaline Phosphatase 211 U/L (38-126); Blood Urea Nitrogen 11 mg/dl (9-20); Calcium 8.6 mg/dl (8.4-10.2); Carbon Dioxide 24 mmol/L (22-30); Chloride 102 mmol/L (98-107); Estimated Creatinine Clearance > 125 ml/min; Glucose 136 mg/dl (70-99); Potassium 4.6 mmol/L (3.5-5.1); Sodium 130 mmol/L (135-145); Total Bilirubin 16.2 mg/dl (0.2-1.3); Total Protein 6.3 g/dl (6.3-8.2); eGFR > 60.00
[2023-12-04] MEDS: SUBUTEX 8 MG SL (08:36)
[2023-12-04] MEDS: FOLVITE 1 MG PO (08:37)
[2023-12-04] MEDS: LOPRESSOR 12.5 MG PO ×2 (08:37→20:06)
[2023-12-04] MEDS: VITAMIN B1 100 MG PO (08:37)
[2023-12-04] MEDS: PROTONIX IV 40 MG IV (08:37)
[2023-12-04] MEDS: NSS (PRESERVATIVE FREE) 10 ML IV (08:37)
[2023-12-04] MEDS: PRELONE 40 MG PO (08:38)
--- NOTE | 2023-12-04 08:51 | W.PN.HOSP.TC ---
Today's Communication/Plan
-
see plan
Assessment / Plan
Assessment / Plan
ASSESSMENT & PLAN
Abdomen US 11/28
IMPRESSION:
1. SEVERE DIFFUSE HEPATIC STEATOSIS.
2. No sonographic evidence for biliary obstruction, cholelithiasis, or acute cholecystitis.
3. No sonographic evidence for ascites.
Acute Alcohol hepatitis
MELD Na 23; 19.6% est 90 day mortality
Maddrey DF 48.8 on admission
- appreciate GI consult
- given elevated DF, prednisolone initiated. Today is day 5. Plan to calculate Lille score day 7
- further work-up liver disease initiated. IgG1 elevated and Mitochondria M2 - discussing with GI, will follow up further recs
- plan for repeat US today to monitor for ascites
- Cessation of ETOH - patient wants to go to inpatient rehab post hospitalization
- Both INR and T. Bili values improving this AM
Alcohol Withdrawal
Chronic Alcoholism associated with clinical depression
- MSAS protocol.
- avoid standing barbiturate taper given liver disease
- thiamine/folate
- Psych consult appreciated
- 11/30 - worsening withdrawal requiring transfer to ICU and initiation of Precedex gtt now off
- withdrawal much improved
- eventual inpatient rehab
- Mag, Phos, Ca stable
Ambulatory Dysfunction
Poor balance, Ataxia during PT Eval on 12/02
-likely 2/2 deconditioning, benzo exposure
-will start high dose thiamine x 2 days today followed by daily use
-continued PT/OT, patient may need PT rehab prior to inpatient rehab for alcohol use
Prior history of opiate abuse
- sober x 3 years; on Suboxone daily
Essential HTN
-hold lisinopril with lower BP readings
-hold parameters with metoprolol
DVT ppx: SCD
Code: Full
IMU
PT ordered
Anticipated Discharge: > 48 hours
Subjective/Interval History
-
Date of Service: December 04, 2023
no new complaints
no pain
Objective Data
-
Labs:
Laboratory Results
12/04/23
03:29
WBC 7.3
Hgb 10.5 L
Hct 30.3 L
Plt Count 117 L D
PT 21.7 H
INR 1.91
Sodium 130 L
Potassium 4.6
Chloride 102
Carbon Dioxide 24
BUN 11
Creatinine 0.4 L
Glucose 136 H
Calcium 8.6
Total Bilirubin 16.2 H
AST 253 H
ALT 53 H
Alkaline Phosphatase 211 H
Vital Signs:
Vital Signs
Temp Pulse Resp BP Pulse Ox
98.2 F 87 11 114/90 93
12/04/23 07:25 12/04/23 08:37 12/04/23 06:00 12/04/23 08:37 12/04/23 06:00
I&O
12/03/23 12/04/23 12/05/23
06:59 06:59 06:59
Intake Total 3181.4 / 3281.4 340 / 340
Output Total 625 / 625 350 / 350 700 / 700
Balance 2556.4 / 2656.4 -10 / -10 -700 / -700
Review of Systems
-
History Source: Patient
All other systems: Reviewed and negative
Physical Exam
-
General: Well Developed, Well Nourished, No Apparent Distress and Comfortable
HEENT: Normocephalic, Atraumatic and Moist Mucous Membranes
Respiratory: Clear to Auscultation and Non Labored Respirations; Negative Accessory Resp Muscle Use
Cardiac: Regular Rhythm and S1/S2; Negative Murmur, Rub or Gallop
GI: Soft, Nontender and Distended
Rectal: Deferred by Provider
Musculoskeletal: No Clubbing, No Cyanosis and No Edema
Skin: Warm and Jaundice; Negative Rash
Neuro: Awake, Alert, Oriented, AO x 3 and Nonfocal/Grossly Intact
Psych: Calm
Data Reviewed
-
Diagnostic Radiology: Report Reviewed by me
Labs: Labs Reviewed by me
--- NOTE | 2023-12-04 09:08 | PTCARENOTE ---
received report from nightshift RN. Pt OOB in chair, resting comfortably. drowsy, arouses easily to voice. orientedx3, forgetful to time. SR on telemetry heart rate in 80s. trace generalized edema. pt on room air, sat 96%. lung sounds diminished.
active bowel sounds. abdomen distended, round. pt voiding very dark chantel urine in urinal. pt updated on plan of care. see worklist for full nursing assessment and interventions.
[2023-12-04 09:33] LABS: Magnesium 2.1 mg/dl (1.6-2.3); Phosphorus 3.3 mg/dl (2.5-4.5)
[2023-12-04] MEDS: THIAMINE INJECTION 255 MG IV ×2 (10:03→16:29)
--- NOTE | 2023-12-04 11:23 | W.PN.GI.CBS2 ---
Today's Communication / Plan
-
US
monitor labs
will get iron sat, B12 and folate levels
Assessment / Plan
-
Toño is a 43 y.o. male with polysubstance abuse disorder on subutex with recurrent etoh pancreatitis who presents for readmission for alcohol hepatitis. His hospital course has been complicated by
worsening withdrawal symptoms with hallucinations, requiring transfer to ICU for initiation of precedex gtt. Prednisolone started on 11/29 for treatment of alcohol hepatitis.
#Alcohol hepatitis c/b thrombocytopnia and coagulopathy improving
-INR is mildly elevated. Suspect a nutritional component gave Vitamin K
- monitor closely for PATRICIA
-Calculated DF = 48.8 --> started on Prednisolone 11/29; plan to calculate Lille score day 7 (12/05) to assess whether to continue prednisolone or discontinue if no response
-continue Thiamine, folic acid
-off precedex gtt, withdrawal sx better
-Lacks immunity to both Hepatitis A and Hepatitis B. Should be vaccinated, needs outpatient twinrix
-Will repeat US may have ascites abd more distended, also has pleural effusion
-Labs with elevated ferritin level most likely reactive and acute phase reactant doubt hemochromatosis but will get iron saturation level and if that is also elevated then will get hemochromatosis genetic testing if not would repeat ferritin level
in a couple of weeks and if still elevated then proceed with the genetic testing.
-Also positive AMA will need eventual liver biopsy to rule out PBC and also rule out underlying cirrhosis, although I think his liver disease is most likely related to EtOH. ASMA and anti LKM1 negative doubt overlap syndrome
-His dad had a history of cirrhosis but was also a drinker no family history of PBC
-Also has neuropathy may be related to alcohol but will also get B12 and folic acid level
Normocytic anemia
-no signs of GI bleeding;
-started on once daily PPI for cytoprotection in setting of steroids
Subjective
Subjective
Date of Service: December 04, 2023
Patient more awake and oriented, withdrawal symptoms are much improved, denies abdominal pain
Objective
Data Reviewed
Laboratory Data:
Laboratory Results
12/04/23 03:29
12/04/23 03:29
Laboratory Results
PT 21.7 Sec (11.4-14.6) H 12/04/23 03:29
INR 1.91 12/04/23 03:29
Phosphorus 3.3 mg/dl (2.5-4.5) 12/04/23 03:29
Magnesium 2.1 mg/dl (1.6-2.3) 12/04/23 03:29
Total Bilirubin 16.2 mg/dl (0.2-1.3) H 12/04/23 03:29
AST 253 U/L (17-59) H 12/04/23 03:29
ALT 53 U/L (0-50) H 12/04/23 03:29
Alkaline Phosphatase 211 U/L (38-126) H 12/04/23 03:29
Lipase 69 U/L (23-300) 11/29/23 14:25
Vital Signs and I&O:
Vital Signs
Temp Pulse Resp BP Pulse Ox
98.2 F 87 10 114/90 95
12/04/23 07:25 12/04/23 08:37 12/04/23 08:31 12/04/23 08:37 12/04/23 08:31
I&O
12/03/23 12/04/23 12/05/23
06:59 06:59 06:59
Intake Total 3181.4 / 3281.4 340 / 340
Output Total 625 / 625 350 / 350 700 / 700
Balance 2556.4 / 2656.4 -10 / -10 -700 / -700
AMA elevated at 57.9, ASMA is negative, anti-LK M1 is negative, hepatitis serologies are negative, ceruloplasmin normal at 31, alpha-1 antitrypsin pending, ferritin 3580
Physical Exam
Physical Exam
Cardiology: Normal Sinus Rhythm
Pulmonary: Clear
GI: Soft, Distended (mildly), Non Tender, Normal Bowel Sounds and Other (small umbilical hernia)
--- NOTE | 2023-12-04 13:42 | W.PN.UPDATE ---
Update Note
Progress Note Update
Patient is friendly and cooperative presently eating lunch. Denies mood instability, depressive symptoms, hopelessness or suicidal thoughts but does have restricted affect.
He is still agreeable to going to in house rehab. Reports 4.5 year sobriety in the past which a a good prognostic sign.
Supportive intervention given.
[2023-12-04 15:09] LABS: Iron 53 ug/dl (49-181)
[2023-12-04 15:18] LABS: Percent Saturation 38 % (20-50); Total Iron Binding Capacity 139 ug/dl (261-462)
[2023-12-04 16:17] LABS: Folate 16.7 ng/ml (2.76-20); Vitamin B12 > 1000 pg/ml (239-931)
[2023-12-04 21:26] LABS: Soluble Liver Antigen Ab 1.3 U (0.0-24.9)
[2023-12-04 23:49] LABS: Alpha-1-Antitrypsin 253 mg/dL (90-200); Alpha-1-Antitrypsin Phenotype M1M1
[2023-12-05] VITALS (11 sets, daily range): BP systolic 110–141; BP diastolic 77–106; PULSE 89; BMI 27.9
[2023-12-05] MEDS: THIAMINE INJECTION 255 MG IV ×4 (01:05→23:16)
[2023-12-05 04:11] LABS: Hematocrit 32.2 % (39.0-52.0); Hemoglobin 11.4 g/dL (13.0-18.0); Mean Corp Hgb Conc. 35.4 g/dL (33.0-37.0); Mean Corpuscular Hgb 33.1 pg (27.0-31.0); Mean Corpuscular Volume 93.6 fL (80.0-94.0); Mean Platelet Volume 11.5 fL (7.4-10.4); Platelet Count 102 10^3/uL (130-400); Red Blood Cell Count 3.44 10^6/uL (4.70-6.10); Red Cell Dist. Width 15.2 % (11.5-14.5); White Blood Cell Count 8.9 10^3/uL (4.8-10.8)
[2023-12-05 04:21] LABS: PT 20.8 Sec (11.4-14.6)
--- NOTE | 2023-12-05 04:27 | PTCARENOTE ---
Patient asleep in chair most of the night, assist to bed when patient was incontinent of urine. Perineal care given and gown changed. Patient unsteady with RW.
[2023-12-05 04:39] LABS: ALT (SGPT) 67 U/L (0-50); AST (SGOT) 254 U/L (17-59); Albumin 2.6 g/dl (3.5-5.0); Alkaline Phosphatase 219 U/L (38-126); Blood Urea Nitrogen 10 mg/dl (9-20); Calcium 8.6 mg/dl (8.4-10.2); Carbon Dioxide 24 mmol/L (22-30); Chloride 104 mmol/L (98-107); Estimated Creatinine Clearance > 125 ml/min; Glucose 122 mg/dl (70-99); Magnesium 2.2 mg/dl (1.6-2.3); Phosphorus 3.4 mg/dl (2.5-4.5); Sodium 134 mmol/L (135-145); Total Bilirubin 15.3 mg/dl (0.2-1.3); Total Protein 6.4 g/dl (6.3-8.2); eGFR > 60.00
--- NOTE | 2023-12-05 07:51 | W.PN.GI.CBS2 ---
Today's Communication / Plan
-
continue prednisolone and will calculate Lille score tomorrow
Assessment / Plan
-
Toño is a 43 y.o. male with polysubstance abuse disorder on subutex with recurrent etoh pancreatitis who presents for readmission for alcohol hepatitis. His hospital course has been complicated by
worsening withdrawal symptoms with hallucinations, requiring transfer to ICU for initiation of precedex gtt. Prednisolone started on 11/29 for treatment of alcohol hepatitis.
#Alcohol hepatitis c/b thrombocytopnia and coagulopathy improving
-INR is mildly elevated. Suspect a nutritional component gave Vitamin K
- monitor closely for PATRICIA
-Calculated DF = 48.8 --> started on Prednisolone 11/29; plan to calculate Lille score day 7 (12/05) to assess whether to continue prednisolone or discontinue if no response
-continue Thiamine, folic acid
-off precedex gtt, withdrawal sx better
-Lacks immunity to both Hepatitis A and Hepatitis B. Should be vaccinated, needs outpatient twinrix
-Labs with elevated ferritin level most likely reactive and acute phase reactant doubt hemochromatosis especially since iron sat is normal, would repeat ferritin level in a couple of weeks and if still elevated then proceed with the genetic testing.
-Also positive AMA will need eventual liver biopsy to rule out PBC and also rule out underlying cirrhosis, although I think his liver disease is most likely related to EtOH. ASMA and anti LKM1 negative doubt overlap syndrome
-His dad had a history of cirrhosis but was also a drinker no family history of PBC
-Also has neuropathy likely from ETOH, B12 and folic acid level are normal
Normocytic anemia
-no signs of GI bleeding;
-started on once daily PPI for cytoprotection in setting of steroids
Subjective
Subjective
Date of Service: December 05, 2023
Much more awake and alert. Denies any abdominal pain, tolerating diet
Objective
Data Reviewed
Laboratory Data:
Laboratory Results
12/05/23 03:53
12/05/23 03:53
Laboratory Results
PT 20.8 Sec (11.4-14.6) H 12/05/23 03:53
INR 1.80 12/05/23 03:53
Phosphorus 3.4 mg/dl (2.5-4.5) 12/05/23 03:53
Magnesium 2.2 mg/dl (1.6-2.3) 12/05/23 03:53
Total Bilirubin 15.3 mg/dl (0.2-1.3) H 12/05/23 03:53
AST 254 U/L (17-59) H 12/05/23 03:53
ALT 67 U/L (0-50) H 12/05/23 03:53
Alkaline Phosphatase 219 U/L (38-126) H 12/05/23 03:53
Lipase 69 U/L (23-300) 11/29/23 14:25
Vital Signs and I&O:
Vital Signs
Temp Pulse Resp BP Pulse Ox
98.5 F 76 9 120/100 96
12/05/23 07:21 12/05/23 06:00 12/05/23 06:00 12/05/23 06:00 12/05/23 06:00
I&O
12/04/23 12/05/23 12/06/23
06:59 06:59 06:59
Intake Total 340 / 340 750 / 750
Output Total 350 / 350 2550 / 2550
Balance -10 / -10 -1800 / -1800
12/04/23 US doppplers
IMPRESSION:
Limited study demonstrating slow hepatopedal flow in the main portal vein suggesting elevated portal venous pressures
B12 > 1000, folate 16.7
AMA elevated at 57.9, ASMA is negative, anti-LK M1 is negative, hepatitis serologies are negative, ceruloplasmin normal at 31, alpha-1 antitrypsin 253, ferritin 3580,alpha-1 antitrypsin 253, Iron 53 TIBC 139 percentage saturation is 38
Physical Exam
Physical Exam
Cardiology: Normal Sinus Rhythm
Pulmonary: Clear
GI: Soft, Distended (Mildly distended mildly distended), Non Tender and Normal Bowel Sounds
[2023-12-05] MEDS: FOLVITE 1 MG PO (08:26)
[2023-12-05] MEDS: SUBUTEX 8 MG SL (08:26)
[2023-12-05] MEDS: PRELONE 40 MG PO (08:26)
[2023-12-05] MEDS: LOPRESSOR 12.5 MG PO ×2 (08:26→19:35)
[2023-12-05] MEDS: PROTONIX IV 40 MG IV (08:27)
[2023-12-05] MEDS: NSS (PRESERVATIVE FREE) 10 ML IV (08:27)
--- NOTE | 2023-12-05 09:00 | PTCARENOTE ---
Received pt @ change of shift. Pt. AAOx3, flat/forgetful @ x's, able to redirect. SR on monitor. SpO2 98% on RA. +BS, abd round/distended. Cont b/b. Assisted x1 w RW into BR for hygiene. Assisted into chair for breakfast. Skin/sclera jaundiced.
MSAS- 1- see flow sheet. Remains in chair, chair alarm active. Instructed on how to report care concerns, demonstrates understanding and has been using call funes approp. Safe environment maintained.
--- NOTE | 2023-12-05 11:59 | W.PN.HOSP.TC ---
Today's Communication/Plan
-
cont prednisone
tx to tele
restart lisinopril
Assessment / Plan
Assessment / Plan
ASSESSMENT & PLAN
Abdomen US 11/28
IMPRESSION:
1. SEVERE DIFFUSE HEPATIC STEATOSIS.
2. No sonographic evidence for biliary obstruction, cholelithiasis, or acute cholecystitis.
3. No sonographic evidence for ascites.
Acute Alcohol hepatitis
Thrombocytopenia/Coagulopathy
MELD Na 23; 19.6% est 90 day mortality
Maddrey DF 48.8 on admission
- appreciate GI consult
- given elevated DF, prednisolone initiated. Today is day 6. Plan to calculate Lille score day 7
- further work-up liver disease initiated. IgG1 elevated and Mitochondria M2
- Cessation of ETOH - patient wants to go to inpatient rehab post hospitalization
- Both INR and T. Bili values improving this AM
Alcohol Withdrawal
Chronic Alcoholism associated with clinical depression
- MSAS protocol.
- avoid standing barbiturate taper given liver disease
- thiamine/folate
- Psych consult appreciated
- 11/30 - worsening withdrawal requiring transfer to ICU and initiation of Precedex gtt now off
- withdrawal much improved
- eventual inpatient rehab
- Mag, Phos, Ca stable
Ambulatory Dysfunction
Poor balance, Ataxia during PT Eval on 12/02
-likely 2/2 deconditioning, benzo exposure
-will start high dose thiamine x 2 days followed by daily use
-continued PT/OT, patient may need PT rehab prior to inpatient rehab for alcohol use
Prior history of opiate abuse
- sober x 3 years; on Suboxone daily
Essential HTN
-Lisinopril restarted with hold parameters
-hold parameters with metoprolol
DVT ppx: SCD
Code: Full
Anticipated Discharge: > 48 hours
Subjective/Interval History
-
Date of Service: December 05, 2023
eating breakfast
Objective Data
-
Labs:
Laboratory Results
12/05/23
03:53
WBC 8.9
Hgb 11.4 L
Hct 32.2 L
Plt Count 102 L
PT 20.8 H
INR 1.80
Sodium 134 L
Potassium 4.0
Chloride 104
Carbon Dioxide 24
BUN 10
Creatinine 0.4 L
Glucose 122 H
Calcium 8.6
Total Bilirubin 15.3 H
AST 254 H
ALT 67 H
Alkaline Phosphatase 219 H
Vital Signs:
Vital Signs
Temp Pulse Resp BP Pulse Ox
98.1 F 90 10 133/96 98
12/05/23 11:58 12/05/23 08:26 12/05/23 08:00 12/05/23 08:26 12/05/23 09:18
I&O
12/04/23 12/05/23 12/06/23
06:59 06:59 06:59
Intake Total 340 / 340 750 / 750 360 / 360
Output Total 350 / 350 2550 / 2550
Balance -10 / -10 -1800 / -1800 360 / 360
Physical Exam
-
General: Well Developed, Well Nourished, No Apparent Distress and Comfortable
HEENT: Normocephalic, Atraumatic and Moist Mucous Membranes
Respiratory: Clear to Auscultation and Non Labored Respirations; Negative Accessory Resp Muscle Use
Cardiac: Regular Rhythm and S1/S2; Negative Murmur, Rub or Gallop
GI: Soft, Nontender and Distended
Rectal: Deferred by Provider
Musculoskeletal: No Clubbing, No Cyanosis and No Edema
Skin: Warm and Jaundice; Negative Rash
Neuro: Awake, Alert, Oriented, AO x 3 and Nonfocal/Grossly Intact
Psych: Calm
Data Reviewed
-
Total Time Spent with Patient (in minutes): 56
[2023-12-05] MEDS: ZESTRIL 20 MG PO (12:51)
--- NOTE | 2023-12-05 14:19 | PTCARENOTE ---
Report given to 4E RN and pt. transferred to rm [id number], bed 02 on director banking with belongings. No further needs from this RN.
--- NOTE | 2023-12-05 14:28 | CM ---
CM reviewed chart- ADC >48 hours
[facility] following for inpatient tx- pt interested in [facility]
Pt continues on MSAS protocol
PT following and recommends rehab on 12/02
Pt might need physcial rehab prior to D/A rehab
CM will continue to follow PT needs to determine pt's physical ability for D/A rehab
Discharge Disposition- inpatient D/S rehab vs acute vs SNF
--- NOTE | 2023-12-05 14:30 | PTCARENOTE ---
Received patient from ICU via WC. Pt AAOX3. VSS. Pox: 96% RA. ST on monitoring and evaluation advisor. Bed alarm on. Call funes within reach. Plan of care ongoing.
[2023-12-06] VITALS (8 sets, daily range): BP systolic 105–137; BP diastolic 65–96; PULSE 91; O2SAT 98
[2023-12-06 05:50] LABS: % Basophils 0.1 % (0-2); % Eosinophils 0.9 % (0-6); % Immature Granulocytes 1.4 % (0-0.5); % Lymphocytes 10.6 % (20.5-51.1); % Monocytes 12.6 % (1.7-9.3); % Neutrophils 74.4 % (42.2-75.2); Absolute Eosinophils 0.1 10^3/uL (0-0.7); Absolute Immature Granulocytes 0.1 10^3/uL (0-0.05); Absolute Lymphocytes 0.9 10^3/uL (1.2-3.4); Absolute Monocytes 1.1 10^3/uL (0.1-0.6); Absolute Neutrophils 6.4 10^3/uL (1.4-6.5); Hematocrit 30.2 % (39.0-52.0); Hemoglobin 10.7 g/dL (13.0-18.0); Mean Corp Hgb Conc. 35.4 g/dL (33.0-37.0); Mean Corpuscular Hgb 33.8 pg (27.0-31.0); Mean Corpuscular Volume 95.3 fL (80.0-94.0); Mean Platelet Volume 10.8 fL (7.4-10.4); Nucleated Red Blood Cells % 0 % (-); Platelet Count 139 10^3/uL (130-400); Red Blood Cell Count 3.17 10^6/uL (4.70-6.10); Red Cell Dist. Width 15.8 % (11.5-14.5); White Blood Cell Count 8.6 10^3/uL (4.8-10.8)
[2023-12-06 06:17] LABS: ALT (SGPT) 76 U/L (0-50); AST (SGOT) 212 U/L (17-59); Albumin 2.2 g/dl (3.5-5.0); Alkaline Phosphatase 202 U/L (38-126); Blood Urea Nitrogen 11 mg/dl (9-20); Calcium 7.9 mg/dl (8.4-10.2); Carbon Dioxide 28 mmol/L (22-30); Chloride 103 mmol/L (98-107); Estimated Creatinine Clearance > 125 ml/min; Glucose 123 mg/dl (70-99); Phosphorus 3.3 mg/dl (2.5-4.5); Potassium 3.4 mmol/L (3.5-5.1); Sodium 134 mmol/L (135-145); Total Bilirubin 12.9 mg/dl (0.2-1.3); Total Protein 5.6 g/dl (6.3-8.2); eGFR > 60.00
[2023-12-06 06:29] LABS: APTT 34.8 Sec (23.4-35.0); PT 19.8 Sec (11.4-14.6)
--- NOTE | 2023-12-06 09:09 | W.PN.GI.CBS2 ---
Today's Communication / Plan
-
Improving on steroids. [facility] full 28-day treatment course of steroids with 2-week taper. Outpatient follow-up for repeat labs and discussion of liver biopsy, given +AMA.
Assessment / Plan
-
Toño is a 43 y.o. male with polysubstance abuse disorder on subutex with recurrent etoh pancreatitis who presents for readmission for alcohol hepatitis. His hospital course has been complicated by worsening withdrawal symptoms with
hallucinations, requiring transfer to ICU for initiation of precedex gtt. He is now off precedex with significant improvement in withdrawal symptoms. Prednisolone started on 11/29 for treatment of alcohol hepatitis.
#Alcohol hepatitis c/b thrombocytopnia and coagulopathy improving
-INR was initially elevated >2, improved s/p treatment with Vit. K.
-Calculated DF = 48.8 --> today is day 7 of steroids, so technically Lille score calculated following this dose. Calculation at this point would suggest poor prognosis (Lille score >0.45), and not to continue steroids. *However, Tbili did not peak
until around day 3 of hospitalization, so using this Tbili, the score suggests favorable response to steroids. That said, I recommend steroids for full 28 day course, followed by a 2 week taper.
-continue Thiamine, folic acid
-Lacks immunity to both Hepatitis A and Hepatitis B. Should be vaccinated, needs outpatient twinrix
-Labs with elevated ferritin level most likely reactive and acute phase reactant doubt hemochromatosis especially since iron sat is normal, would repeat ferritin level in a couple of weeks and if still elevated then proceed with the genetic testing.
-(+)AMA--> recommend outpatient follow-up to discuss liver biopsy. Not typically indicated to dx PBC, however, given severe alcoholic liver disease, this complicates picture. ASMA and anti LKM1 negative doubt overlap syndrome
-US w/ dopplers (12/03): limited study, slow hepatopedal flow in main portal vein suggesting elevated pressure
-His dad had a history of cirrhosis but was also a drinker no family history of PBC
-Also has neuropathy likely from ETOH, B12 and folic acid level are normal
Normocytic anemia
-no signs of GI bleeding;
-started on once daily PPI for cytoprotection in setting of steroids
Subjective
Subjective
Date of Service: December 06, 2023
Patient seen in follow-up today, today is day 7 of prednisone for treatment of alc hep. Overall, all liver enzymes are improving as well as INR. Plan for inpatient rehab upon discharge.
Awake, alert and oriented this morning, reports feeling well. Offers no complaints.
Objective
Data Reviewed
Laboratory Data:
Laboratory Results
12/06/23 05:26
12/06/23 05:26
Laboratory Results
PT 19.8 Sec (11.4-14.6) H 12/06/23 05:26
INR 1.70 12/06/23 05:26
APTT 34.8 Sec (23.4-35.0) 12/06/23 05:26
Phosphorus 3.3 mg/dl (2.5-4.5) 12/06/23 05:26
Magnesium 2.0 mg/dl (1.6-2.3) 12/06/23 05:26
Total Bilirubin 12.9 mg/dl (0.2-1.3) H 12/06/23 05:26
AST 212 U/L (17-59) H 12/06/23 05:26
ALT 76 U/L (0-50) H 12/06/23 05:26
Alkaline Phosphatase 202 U/L (38-126) H 12/06/23 05:26
Lipase 69 U/L (23-300) 11/29/23 14:25
Vital Signs and I&O:
Vital Signs
Temp Pulse Resp BP Pulse Ox
98.8 F 89 16 108/78 97
12/06/23 07:55 12/06/23 07:55 12/06/23 07:55 12/06/23 07:55 12/06/23 07:55
I&O
12/05/23 12/06/23 12/07/23
06:59 06:59 06:59
Intake Total 750 / 750 855 / 855
Output Total 2550 / 2550
Balance -1800 / -1800 855 / 855
Physical Exam
Physical Exam
HEENT: Other (scleral icterus)
Cardiology: Normal Sinus Rhythm, S1 and S2
Pulmonary: Clear
GI: Soft, Non Distended (mild distension), Non Tender and Normal Bowel Sounds
Extremities: Warm
Neuro: Non Focal
[2023-12-06] MEDS: ZESTRIL 20 MG PO (09:33)
[2023-12-06] MEDS: LOPRESSOR 12.5 MG PO (09:33)
[2023-12-06] MEDS: SUBUTEX 8 MG SL (09:33)
[2023-12-06] MEDS: THIAMINE INJECTION 200 MG IV (09:33)
[2023-12-06] MEDS: FOLVITE 1 MG PO (09:33)
[2023-12-06] MEDS: PROTONIX IV 40 MG IV (09:34)
[2023-12-06] MEDS: NSS (PRESERVATIVE FREE) 10 ML IV (09:34)
[2023-12-06] MEDS: PRELONE 40 MG PO (09:34)
[2023-12-06] MEDS: KCL 40 MEQ PO (09:44)
--- NOTE | 2023-12-06 10:42 | CM ---
PT eval said VN .
Pt has progressed to better PT eval.Ambulated 325 ft with CG.
Spoke with Idalmis at [facility] and will call him pt
Idalmis will call pt and Ruby holguin will see him today also to discuss inpatient D/A rehab.
Pt had spoken of Corina in past.
PLAN [facility] working on pos Inpatient D/A rehab
--- NOTE | 2023-12-06 11:20 | W.PN.UPDATE ---
Update Note
Progress Note Update
Patient seen at bedside, discussed with staff, chart reviewed. Anne Mccarthy offers no complaints. He is calm and cooperative, affect constricted. Her is sitting upright and was eating when seen. Sleep is okay. He continues to want inpatient
treatment for his alcoholism once medically stable. Denies any withdrawal symptoms. Denies any specific depressive symptoms at this time, denies SI/SB.
Impression/Plan: ETOH use disorder, severe - no further withdrawal symptoms reported, day 6 since admission, can follow MSAS if needed. Patient continues to desire inpatient treatment for ETOH once medically stable, [facility] to follow; History of
opiate use/abuse - on Suboxone. At this time, Psych will sign off. Call or reconsult with any new or immediate concerns.
--- NOTE | 2023-12-06 11:32 | W.PN.HOSP.TC ---
Today's Communication/Plan
-
Await [facility] eval
dc once inpt D&A rehab found
cont prednisolone
replete kcl
Assessment / Plan
Assessment / Plan
ASSESSMENT & PLAN
Acute Alcohol hepatitis
Thrombocytopenia/Coagulopathy
MELD Na 23; 19.6% est 90 day mortality
- appreciate GI consult
- given elevated DF, prednisolone initiated. Repeat labs with wit Per GI, plan to continue to prednisolone for 28d followed by taper of 2 weeks.
- further work-up liver disease initiated. IgG1 elevated and Mitochondria M2. OP repeat labs and f/u to further assess liver pathology (currently complicated due to alcohol abuse).
- Cessation of ETOH - patient wants to go to inpatient rehab post hospitalization
- Both INR and T. Bili values improving
- Platelet slowly uptrending
Alcohol Withdrawal
Chronic Alcoholism associated with clinical depression
- MSAS protocol.
- avoid standing barbiturate taper given liver disease
- thiamine/folate
- Psych consult appreciated
- 11/30 - worsening withdrawal requiring transfer to ICU and initiation of Precedex gtt now off
- withdrawal much improved and seems to have resolved.
- eventual inpatient rehab
- Mag, Phos, Ca stable
Ambulatory Dysfunction
Poor balance, Ataxia during PT Eval on 12/02
-likely 2/2 deconditioning, benzo exposure
-will start high dose thiamine x 2 days followed by daily use
-continued PT/OT,. improved and now home VN.
Prior history of opiate abuse
- sober x 3 years; on Suboxone daily
Essential HTN
-Lisinopril restarted with hold parameters
-hold parameters with metoprolol
Hypokalemia
-replete/monitor
DVT ppx: SCD
Code: Full
PT/OT-improved and now PT recs Home VN. Await [facility] and then hopefully to inpt D&A rehab if possible.
Anticipated Discharge: Within 24 hours
Subjective/Interval History
-
Date of Service: December 06, 2023
feeling better
tolerating diet
Objective Data
-
Labs:
Laboratory Results
12/06/23
05:26
WBC 8.6
Hgb 10.7 L
Hct 30.2 L
Plt Count 139 D
PT 19.8 H
INR 1.70
APTT 34.8
Sodium 134 L
Potassium 3.4 L
Chloride 103
Carbon Dioxide 28
BUN 11
Creatinine 0.5 L
Glucose 123 H
Calcium 7.9 L
Total Bilirubin 12.9 H
AST 212 H
ALT 76 H
Alkaline Phosphatase 202 H
Vital Signs:
Vital Signs
Temp Pulse Resp BP Pulse Ox
98.8 F 102 16 137/96 96
12/06/23 07:55 12/06/23 09:30 12/06/23 07:55 12/06/23 09:30 12/06/23 08:00
I&O
12/05/23 12/06/23 12/07/23
06:59 06:59 06:59
Intake Total 750 / 750 855 / 855
Output Total 2550 / 2550
Balance -1800 / -1800 855 / 855
Physical Exam
-
General: Well Developed, Well Nourished, No Apparent Distress and Comfortable
HEENT: Normocephalic, Atraumatic and Moist Mucous Membranes
Respiratory: Clear to Auscultation and Non Labored Respirations; Negative Accessory Resp Muscle Use
Cardiac: Regular Rhythm and S1/S2; Negative Murmur, Rub or Gallop
GI: Soft, Nontender and Distended
Rectal: Deferred by Provider
Musculoskeletal: No Clubbing, No Cyanosis and No Edema
Skin: Warm and Jaundice; Negative Rash
Neuro: Awake, Alert, Oriented, AO x 3 and Nonfocal/Grossly Intact
Psych: Calm
Data Reviewed
-
Total Time Spent with Patient (in minutes): 56
[2023-12-06] MEDS: MELATONIN 5 MG PO (21:32)
[2023-12-06] MEDS: LOPRESSOR PO (21:32)
[2023-12-07 03:06] VITALS: BP 128/91
[2023-12-07 05:40] LABS: ALT (SGPT) 85 U/L (0-50); AST (SGOT) 199 U/L (17-59); Albumin 2.1 g/dl (3.5-5.0); Alkaline Phosphatase 199 U/L (38-126); Blood Urea Nitrogen 10 mg/dl (9-20); Calcium 7.8 mg/dl (8.4-10.2); Carbon Dioxide 28 mmol/L (22-30); Chloride 103 mmol/L (98-107); Estimated Creatinine Clearance > 125 ml/min; Glucose 111 mg/dl (70-99); Potassium 3.5 mmol/L (3.5-5.1); Sodium 132 mmol/L (135-145); Total Protein 5.3 g/dl (6.3-8.2); eGFR > 60.00
[2023-12-07 07:55] VITALS: BP 128/87
[2023-12-07] MEDS: LOPRESSOR 12.5 MG PO ×2 (08:52→20:46)
[2023-12-07] MEDS: ZESTRIL 20 MG PO (08:52)
[2023-12-07] MEDS: FOLVITE 1 MG PO (08:52)
[2023-12-07] MEDS: SUBUTEX 8 MG SL (08:53)
[2023-12-07] MEDS: PRELONE 40 MG PO (08:53)
[2023-12-07] MEDS: NSS (PRESERVATIVE FREE) 10 ML IV (08:54)
[2023-12-07] MEDS: THIAMINE INJECTION 200 MG IV (08:55)
[2023-12-07] MEDS: PROTONIX IV 40 MG IV (08:55)
[2023-12-07] MEDS: FLUSH (NSS) 1 FLUSH IV (08:55)
--- NOTE | 2023-12-07 09:36 | W.PN.GI.CBS2 ---
Today's Communication / Plan
-
Complete 28 day course of steroids with 2 week taper. Will arrange for outpatient GI follow-up. GI will sign off, please call with questions.
Assessment / Plan
-
Toño is a 43 y.o. male with polysubstance abuse disorder on subutex with recurrent etoh pancreatitis who presents for readmission for alcohol hepatitis. His hospital course has been complicated by worsening withdrawal symptoms with
hallucinations, requiring transfer to ICU for initiation of precedex gtt. He is now off precedex with significant improvement in withdrawal symptoms. Prednisolone started on 11/29 for treatment of alcohol hepatitis.
#Alcohol hepatitis c/b thrombocytopnia and coagulopathy improving
-INR was initially elevated >2, improved s/p treatment with Vit. K.
-Calculated DF = 48.8 on admission, technically, Lille score did not indicate resopnse to steroids, however, Tbili did not peak until around day 3 of hospitalization. Patient's trend is now improving, so would recommend full 28 day course, followed
by a 2 week taper.
-continue Thiamine, folic acid
-Lacks immunity to both Hepatitis A and Hepatitis B. Should be vaccinated, needs outpatient twinrix
-Labs with elevated ferritin level most likely reactive and acute phase reactant doubt hemochromatosis especially since iron sat is normal, would repeat ferritin level in a couple of weeks and if still elevated then proceed with the genetic testing.
-(+)AMA--> recommend outpatient follow-up to discuss liver biopsy. Not typically indicated to dx PBC, however, given severe alcoholic liver disease, this complicates picture. ASMA and anti LKM1 negative doubt overlap syndrome
-US w/ dopplers (12/03): limited study, slow hepatopedal flow in main portal vein suggesting elevated pressure
-His dad had a history of cirrhosis but was also a drinker no family history of PBC
-Also has neuropathy likely from ETOH, B12 and folic acid level are normal
Normocytic anemia
-no signs of GI bleeding;
-started on once daily PPI for cytoprotection in setting of steroids
Needs outpatient follow-up with GI. Will arrange for outpatient appointment in 2 weeks, please have patient repeat CMP, CBC, PT/INR in 1-2 weeks.
Subjective
Subjective
Date of Service: December 07, 2023
Patient reports feeling well this morning, awaiting bed at inpatient rehab. LFTs continue to improve.
Objective
Data Reviewed
Laboratory Data:
Laboratory Results
12/06/23 05:26
12/07/23 04:34
Laboratory Results
PT 19.8 Sec (11.4-14.6) H 12/06/23 05:26
INR 1.70 12/06/23 05:26
APTT 34.8 Sec (23.4-35.0) 12/06/23 05:26
Phosphorus 3.3 mg/dl (2.5-4.5) 12/06/23 05:26
Magnesium 2.0 mg/dl (1.6-2.3) 12/06/23 05:26
Total Bilirubin 11.0 mg/dl (0.2-1.3) H 12/07/23 04:34
AST 199 U/L (17-59) H 12/07/23 04:34
ALT 85 U/L (0-50) H 12/07/23 04:34
Alkaline Phosphatase 199 U/L (38-126) H 12/07/23 04:34
Lipase 69 U/L (23-300) 11/29/23 14:25
Vital Signs and I&O:
Vital Signs
Temp Pulse Resp BP Pulse Ox
98.4 F 84 18 128/87 97
12/07/23 07:55 12/07/23 08:52 12/07/23 07:55 12/07/23 08:52 12/07/23 08:51
I&O
12/06/23 12/07/23 12/08/23
06:59 06:59 06:59
Intake Total 855 / 855 1140 / 1140
Balance 855 / 855 1140 / 1140
Physical Exam
Physical Exam
HEENT: Other (scleral icterus)
Cardiology: Normal Sinus Rhythm, S1 and S2
Pulmonary: Clear
GI: Soft, Distended (mild distension) and Normal Bowel Sounds
Extremities: No Edema
Neuro: Non Focal and Other
--- NOTE | 2023-12-07 10:55 | W.PN.HOSP.TC ---
Today's Communication/Plan
-
Await [facility] and then hopefully to inpt D&A rehab if possible. Case management aware
Continue with steroids
Labs improving
Assessment / Plan
Assessment / Plan
ASSESSMENT & PLAN
Acute Alcohol hepatitis
Thrombocytopenia/Coagulopathy
MELD Na 23; 19.6% est 90 day mortality
- appreciate GI consult
- given elevated DF, prednisolone initiated. Repeat labs with wit Per GI, plan to continue to prednisolone for 28d followed by taper of 2 weeks.
- further work-up liver disease initiated. IgG1 elevated and Mitochondria M2. OP repeat labs and f/u to further assess liver pathology (currently complicated due to alcohol abuse).
- Cessation of ETOH - patient wants to go to inpatient rehab post hospitalization
- Both INR and T. Bili values improving
- Platelet slowly uptrending
Alcohol Withdrawal
Chronic Alcoholism associated with clinical depression
- MSAS protocol.
- avoid standing barbiturate taper given liver disease
- thiamine/folate
- Psych consult appreciated
- 11/30 - worsening withdrawal requiring transfer to ICU and initiation of Precedex gtt now off
- withdrawal much improved and seems to have resolved.
- eventual inpatient rehab
- Mag, Phos, Ca stable
Ambulatory Dysfunction
Poor balance, Ataxia during PT Eval on 12/02
-likely 2/2 deconditioning, benzo exposure
-will start high dose thiamine x 2 days followed by daily use
-continued PT/OT,. improved and now home VN.
Prior history of opiate abuse
- sober x 3 years; on Suboxone daily
Essential HTN
-Lisinopril restarted with hold parameters
-hold parameters with metoprolol
Hypokalemia
-replete/monitor
DVT ppx: SCD
Code: Full
PT/OT-improved and now PT recs Home VN. Await [facility] and then hopefully to inpt D&A rehab if possible.
Anticipated Discharge: Today
Subjective/Interval History
-
Date of Service: December 07, 2023
Tolerating diet
No abdominal pain
Objective Data
-
Labs:
Laboratory Results
12/07/23
04:34
Sodium 132 L
Potassium 3.5
Chloride 103
Carbon Dioxide 28
BUN 10
Creatinine 0.5 L
Glucose 111 H
Calcium 7.8 L
Total Bilirubin 11.0 H
AST 199 H
ALT 85 H
Alkaline Phosphatase 199 H
Vital Signs:
Vital Signs
Temp Pulse Resp BP Pulse Ox
98.4 F 84 18 128/87 97
12/07/23 07:55 12/07/23 08:52 12/07/23 07:55 12/07/23 08:52 12/07/23 08:51
I&O
12/06/23 12/07/23 12/08/23
06:59 06:59 06:59
Intake Total 855 / 855 1140 / 1140
Balance 855 / 855 1140 / 1140
Physical Exam
-
General: Well Developed, Well Nourished, No Apparent Distress and Comfortable
HEENT: Normocephalic, Atraumatic and Moist Mucous Membranes
Respiratory: Clear to Auscultation and Non Labored Respirations; Negative Accessory Resp Muscle Use
Cardiac: Regular Rhythm and S1/S2; Negative Murmur, Rub or Gallop
GI: Soft, Nontender and Distended
Rectal: Deferred by Provider
Musculoskeletal: No Clubbing, No Cyanosis and No Edema
Skin: Warm and Jaundice; Negative Rash
Neuro: Awake, Alert, Oriented, AO x 3 and Nonfocal/Grossly Intact
Psych: Calm
--- NOTE | 2023-12-07 13:21 | CM ---
Yeison from [facility] called; based on PT notes, [facility] recommends that patient stay another day in the hospital. A D/A rehab bed will be available when patient is stable for discharge. Attending notified
Plan: discharge to D/A rehab when condition is stable
[2023-12-07 15:55] VITALS: BP 116/78
--- NOTE | 2023-12-07 16:04 | PTCARENOTE ---
Pt AAO x3, HAN; OOB in room/to BR; susan well, no c/o weakness/dizziness. VSS. On room air- puls eox 96%. Abd large, soft, susan PO well. Voiding in BR without difficulty. Skin jaundiced. Resting in bed at present, no c/o. Will continue to
monitor.
[2023-12-07 23:44] VITALS: BP 126/88
[2023-12-08 05:33] LABS: ALT (SGPT) 86 U/L (0-50); AST (SGOT) 211 U/L (17-59); Albumin 2.1 g/dl (3.5-5.0); Alkaline Phosphatase 201 U/L (38-126); Blood Urea Nitrogen 11 mg/dl (9-20); Carbon Dioxide 28 mmol/L (22-30); Chloride 103 mmol/L (98-107); Estimated Creatinine Clearance > 125 ml/min; Glucose 149 mg/dl (70-99); Sodium 135 mmol/L (135-145); Total Bilirubin 9.8 mg/dl (0.2-1.3); Total Protein 5.4 g/dl (6.3-8.2); eGFR > 60.00
[2023-12-08 05:38] LABS: Potassium 3.8 mmol/L (3.5-5.1)
[2023-12-08 07:30] VITALS: BP 132/63
[2023-12-08] MEDS: THIAMINE INJECTION 200 MG IV (09:06)
[2023-12-08] MEDS: SUBUTEX 8 MG SL (09:06)
[2023-12-08] MEDS: ZESTRIL 20 MG PO (09:07)
[2023-12-08] MEDS: PROTONIX IV 40 MG IV (09:07)
[2023-12-08] MEDS: FOLVITE 1 MG PO (09:08)
[2023-12-08] MEDS: PRELONE 40 MG PO (09:08)
[2023-12-08] MEDS: LOPRESSOR 12.5 MG PO ×2 (09:08→19:46)
[2023-12-08] MEDS: NSS (PRESERVATIVE FREE) 10 ML IV (09:08)
--- NOTE | 2023-12-08 11:05 | CM ---
Spoke with Awilda Coleman . She said that pt was denied at [place] because he had higher acuity with PT .
Faxed PT evaluation from 12/07/23 where pt ambulated 270 ft. To resubmit.
Kelby Rojas also sent referral to [facility] and
--- NOTE | 2023-12-08 11:34 | W.PN.HOSP.TC ---
Today's Communication/Plan
-
Await [facility] and then hopefully to inpt D&A rehab if possible.
cont prednisolone with ppi
Assessment / Plan
Assessment / Plan
ASSESSMENT & PLAN
Acute Alcohol hepatitis
Thrombocytopenia/Coagulopathy
MELD Na 23; 19.6% est 90 day mortality
- appreciate GI consult
- given elevated DF, prednisolone initiated. Repeat labs with wit Per GI, plan to continue to prednisolone for 28d followed by taper of 2 weeks. PPI added as will be on steroids.
- further work-up liver disease initiated. IgG1 elevated and Mitochondria M2. OP repeat labs and f/u to further assess liver pathology (currently complicated due to alcohol abuse).
- Cessation of ETOH - patient wants to go to inpatient rehab post hospitalization
- Both INR and T. Bili values improving
- Platelet slowly uptrended
Alcohol Withdrawal
Chronic Alcoholism associated with clinical depression
- MSAS protocol.
- avoid standing barbiturate taper given liver disease
- thiamine/folate
- Psych consult appreciated
- 11/30 - worsening withdrawal requiring transfer to ICU and initiation of Precedex gtt now off
-withdrawal much improved and seems to have resolved.
- awaiting inpatient rehab
- Mag, Phos, Ca stable
Ambulatory Dysfunction
Poor balance, Ataxia during PT Eval on 12/02
-likely 2/2 deconditioning, benzo exposure
-will start high dose thiamine x 2 days followed by daily use
-continued PT/OT,. improved and now home VN.
Prior history of opiate abuse
- sober x 3 years; on Suboxone daily
Essential HTN
-Lisinopril restarted with hold parameters
-hold parameters with metoprolol
Hypokalemia
-replete/monitor
DVT ppx: SCD
Code: Full
PT/OT-improved and now PT recs Home VN. Await [facility] and then hopefully to inpt D&A rehab if possible.
Anticipated Discharge: Today
Subjective/Interval History
-
Date of Service: December 08, 2023
resting in bed comfortably
tolerating diet
Objective Data
-
Labs:
Laboratory Results
12/08/23
04:45
Sodium 135
Potassium 3.8
Chloride 103
Carbon Dioxide 28
BUN 11
Creatinine 0.5 L
Glucose 149 H
Calcium 8.0 L
Total Bilirubin 9.8 H
AST 211 H
ALT 86 H
Alkaline Phosphatase 201 H
Vital Signs:
Vital Signs
Temp Pulse Resp BP Pulse Ox
98.5 F 75 16 132/63 99
12/08/23 07:30 12/08/23 09:07 12/08/23 07:30 12/08/23 09:07 12/08/23 07:30
I&O
12/07/23 12/08/23 12/09/23
06:59 06:59 06:59
Intake Total 1140 / 1140 1320 / 1320
Balance 1140 / 1140 1320 / 1320
Physical Exam
-
General: Well Developed, Well Nourished, No Apparent Distress and Comfortable
HEENT: Normocephalic, Atraumatic and Moist Mucous Membranes
Respiratory: Clear to Auscultation and Non Labored Respirations; Negative Accessory Resp Muscle Use
Cardiac: Regular Rhythm and S1/S2; Negative Murmur, Rub or Gallop
GI: Soft, Nontender, Normal Bowel Sounds and Distended
Rectal: Deferred by Provider
Musculoskeletal: No Clubbing, No Cyanosis and No Edema
Skin: Warm and Jaundice; Negative Rash
Neuro: Awake, Alert, Oriented, AO x 3 and Nonfocal/Grossly Intact
Psych: Calm
--- NOTE | 2023-12-08 12:09 | CM ---
Addendum entered by Winter Louis, RN 12/08/23 17:18:
Spoke with [facility] and [facility] can not accept due to ne beds.
MD notified .
PLAN Check with [facility] and [facility] tomorrow for inpatient placement.
Original Note:
Spoke with Gagandeep from [facility] . She said that pt was denied at [place] because he had higher acuity with PT .
Faxed PT evaluation from 12/07/23 where pt ambulated 270 ft. To resubmit.
Kelby Rojas also sent referral to [facility] and [facility]. [facility] has no beds.
Awaiting [facility] response.
As per [facility] [phone] they will provide transportation.
MD aware of above .
PLAN Inpatient D/A rehab
[2023-12-08 15:05] VITALS: BP 111/79
[2023-12-08 23:31] VITALS: BP 131/88
[2023-12-09 07:28] VITALS: BP 152/102
[2023-12-09] MEDS: ZESTRIL 20 MG PO (07:29)
[2023-12-09] MEDS: FOLVITE 1 MG PO (07:29)
[2023-12-09] MEDS: PROTONIX 40 MG PO (07:29)
[2023-12-09] MEDS: PRELONE 40 MG PO (07:29)
[2023-12-09] MEDS: LOPRESSOR 12.5 MG PO (07:30)
[2023-12-09] MEDS: SUBUTEX 8 MG SL (07:30)
[2023-12-09] MEDS: THIAMINE INJECTION 200 MG IV (07:30)
--- NOTE | 2023-12-09 09:59 | CM ---
Addendum entered by Winter Louis RN 12/09/23 10:13:
Domenica confirmed that [facility] accepted patient . Bob obtained auth also.
Domenica will set up an Uber.
To [facility]
fax dc summary to [phone]
Original Note:
Spoke with Domenica from [facility] .
She said that [facility] has no beds.Assessment being done at bedside.
As per Domenica they will set up transportations for pt to [facility].
MD aware of above .
PLAN To [facility] for Drug and Alcohol in patient Rehab
--- NOTE | 2023-12-09 10:23 | W.PN.HOSP.TC ---
Today's Communication/Plan
-
dc to rehab
cont ppi while on prednisolone
Assessment / Plan
Assessment / Plan
ASSESSMENT & PLAN
Acute Alcohol hepatitis
Thrombocytopenia/Coagulopathy
MELD Na 23; 19.6% est 90 day mortality
- appreciate GI consult
- given elevated DF, prednisolone initiated. Repeat labs noted. Per GI, plan to continue to prednisolone for 28d followed by taper of 2 weeks. PPI added as will be on steroids.
- further work-up liver disease initiated. IgG1 elevated and Mitochondria M2. OP repeat labs and f/u to further assess liver pathology (currently complicated due to alcohol abuse).
- Cessation of ETOH - patient wants to go to inpatient rehab post hospitalization
- Both INR and T. Bili values improving
- Platelet slowly uptrended
-Need to follow-up outpatient with gastroenterology for further prednisolone recommendation for taper regimen and further hepatitis management.
Alcohol Withdrawal
Chronic Alcoholism associated with clinical depression
- MSAS protocol.
- avoid standing barbiturate taper given liver disease
- thiamine/folate
- Psych consult appreciated
- 11/30 - worsening withdrawal requiring transfer to ICU and initiation of Precedex gtt now off
-withdrawal much improved and have resolved now.
- Mag, Phos, Ca stable
Ambulatory Dysfunction
Poor balance, Ataxia during PT Eval on 12/02
-likely 2/2 deconditioning, benzo exposure
-will start high dose thiamine x 2 days followed by daily use
-continued PT/OT,. improved and now home VN.
Prior history of opiate abuse
- sober x 3 years; on Suboxone daily
Essential HTN
-Lisinopril restarted with hold parameters
-hold parameters with metoprolol
Hypokalemia
-replete/monitor
DVT ppx: SCD
Code: Full
PT/OT-Home VN. Inpatient psych drug and alcohol detox rehab
More than 30 minutes spent in discharge including
Final examination of the patient
Summarizing hospital stay
Instructions for continuing care to all relevant caregivers
Preparation of discharge records, prescriptions, and referral forms
Total time spent (in minutes): 45
Anticipated Discharge: Today
Subjective/Interval History
-
Date of Service: December 09, 2023
Sitting in bed
States he is ambulating without difficulty
Tolerating diet
Objective Data
-
Vital Signs:
Vital Signs
Temp Pulse Resp BP Pulse Ox
98.4 F 90 16 152/102 99
12/09/23 07:28 12/09/23 07:29 12/09/23 07:28 12/09/23 07:29 12/09/23 07:28
I&O
12/08/23 12/09/23 12/10/23
06:59 06:59 06:59
Intake Total 1320 / 1320 1200 / 1200
Balance 1320 / 1320 1200 / 1200
Physical Exam
-
General: Well Developed, Well Nourished, No Apparent Distress and Comfortable
HEENT: Normocephalic, Atraumatic and Moist Mucous Membranes
Respiratory: Clear to Auscultation and Non Labored Respirations; Negative Accessory Resp Muscle Use
Cardiac: Regular Rhythm and S1/S2; Negative Murmur, Rub or Gallop
GI: Soft, Nontender, Normal Bowel Sounds and Distended
Rectal: Deferred by Provider
Musculoskeletal: No Clubbing, No Cyanosis and No Edema
Skin: Warm and Jaundice; Negative Rash
Neuro: Awake, Alert, Oriented, AO x 3 and Nonfocal/Grossly Intact
Psych: Calm
--- NOTE | 2023-12-09 10:26 | W.DCSUMMARY ---
Discharge Summary
Discharge Data
Date of Admission: 11/29/23
Date of Discharge: 12/09/23
-
Pending Results: No
Hospital Course
43-year-old male past medical history of alcohol abuse, chronic alcoholism with clinical depression, history of opiate abuse, hypertension who is presented with acute alcohol withdrawal. Patient with worsening withdrawal required management in the
ICU and initiation of Precedex. Patient also with severe transaminitis which seems secondary to alcoholic hepatitis. Patient with elevated discriminant factor and was started on prednisolone per gastroenterology. Patient had extensive workup
initiated. Patient withdrawal improved when he was off Precedex drip. Patient was transferred to medical floor. Patient T. bili and platelets started to improve. Patient was restarted on his home blood pressure medication. Patient was
tolerating diet. Patient expressed interest in going to inpatient detox. Patient with improvement in function of bili and by gastroenterology to continue prednisone for 4 weeks and then outpatient follow-up for down titration. Patient was eval by
physical and Occupational Therapy. Patient ambulation improved significantly. Patient was cleared for home with VN. Patient be discharged to inpatient alcohol and drug detox rehab.
Discharge Plan
-
Patient Disposition: Psych Facility
Discharge Diagnosis/Procedures: Acute alcoholic hepatitis
Thrombocytopenia
Coagulopathy
Acute alcohol withdrawal
Chronic alcoholism associated with clinical depression
Ambulatory dysfunction
Hypokalemia
Condition: Fair
Diet: As tolerated
Activity: With assistance and As tolerated
Driving Restrictions: As prior to admission
Blood Work: CMP in 7-10 days via primary doctor.
Activity Restrictions/Additional Instructions:
Take prednisolone for 4 weeks and then taper regimen as recommended by gastroenterology
Referrals:
Nakia Villarreal MD [Active] - 12/23/23 10:30 am
PRIVATE,PHYSICIAN [Family Provider] - in less than 1 week
Prescriptions:
New
prednisolone sodium phosphate 15 mg/5 mL (3 mg/mL) Solution
40 mg PO DAILY 30 Days Qty: 400 0RF
pantoprazole 40 mg Tablet,Delayed Release (Dr/Ec)
40 mg PO DAILY 30 Days Qty: 30 0RF
Continued
buprenorphine-naloxone 8-2 mg film
1 film sublingual DAILY
Patient Comments:
10/18/2023: Prescribed as BID, past few weeks has only been taking once daily.
last filled 11/27/23, 60 film for 30 days from [facility]
lisinopril 20 mg Tablet
20 mg PO DAILY Qty: 30 0RF
metoprolol tartrate 25 mg Tablet
12.5 mg PO BID Qty: 60 0RF
Discharge Orders:
Discharge Patient (As Directed); Ordered 12/09/23
Ordered By: Patricio Galeano
Discharge Date and Time
Discharge Date/Time: 12/09/23 11:09
Print Language: PASHTO
== END 2023-12-09 11:09 | DRG 433 ==
LOC: 4 EAST ACU 21:13
PROVIDERS: Internal Medicine Gastroenterology; Student in an Organized Health Care Education/Training Program; ADMITTING PHYSICIAN Internal Medicine; ATTENDING PHYSICIAN Hospitalist; EMERGENCY PHYSICIAN Emergency Medicine; OTHER PHYSICIAN Internal Medicine; OTHER PHYSICIAN Internal Medicine Pulmonary Disease; OTHER PHYSICIAN Psychiatry & Neurology Psychiatry
DX: K70.10 Alcoholic hepatitis without ascites (principal); D68.9 Coagulation defect, unspecified; F10.231 Alcohol dependence with withdrawal delirium; I10 Essential (primary) hypertension; F32.A Depression, unspecified; F11.21 Opioid dependence, in remission; D69.6 Thrombocytopenia, unspecified; R26.2 Difficulty in walking, not elsewhere classified; E87.6 Hypokalemia
CPT/HCPCS: 71045; 76700; 80053; 80143; 80179; 80306; 80307; 81003; 81015; 82077; 82103; 82104; 82140; 82390; 82607; 82728; 82746; 82787; 83516; 83540; 83550; 83690; 83735; 84100; 85018; 85025; 85027; 85610; 85730; 86015; 86038; 86376; 86381; 87070; 87086; 87147; 87186; 93005; 93975; 97116; 97163; 97530; 99285

== ENCOUNTER 2024-01-27 08:32 | Outpatient (REF) | payer OTHER, SELFPAY ==
[2024-01-27] VITALS (12 sets, daily range): BP systolic 75–135; BP diastolic 77–97
[2024-01-27 09:05] LABS: INR 1.19; PT 14.9 Sec (11.4-14.6)
[2024-01-27 09:07] LABS: Hematocrit 38.9 % (39.0-52.0); Hemoglobin 13.5 g/dL (13.0-18.0); Mean Corp Hgb Conc. 34.7 g/dL (33.0-37.0); Mean Corpuscular Hgb 31.5 pg (27.0-31.0); Mean Corpuscular Volume 90.7 fL (80.0-94.0); Mean Platelet Volume 9.9 fL (7.4-10.4); Platelet Count 247 10^3/uL (130-400); Red Blood Cell Count 4.29 10^6/uL (4.70-6.10); Red Cell Dist. Width 12.2 % (11.5-14.5); White Blood Cell Count 10.3 10^3/uL (4.8-10.8)
== END 2024-01-27 12:30 | disposition home or self-care (01) ==
LOC: RADI 08:32
PROVIDERS: ATTENDING PHYSICIAN Internal Medicine Gastroenterology
DX: K70.30 Alcoholic cirrhosis of liver without ascites (principal); K76.0 Fatty (change of) liver, not elsewhere classified; Z01.812 Encounter for preprocedural laboratory examination; Z01.818 Encounter for other preprocedural examination; K75.81 Nonalcoholic steatohepatitis (NASH)
CPT/HCPCS: 88307; 36415; 47000; 76942; 85027; 85610; 88313; 88342; 99152